=== PATIENT | male | born 1950 | race Caucasian/White ===

== ENCOUNTER 2019-02-06 22:08 | Emergency (ER) | payer OTHER ==
[2019-02-06 22:38] LABS: Absolute Lymphocytes (CBC) 0.9 K/uL (0.7-4.9); Absolute Monocytes 1.6 K/uL (0.1-1.3); Absolute Neutrophil 12.3 K/uL (1.8-8.0); Basophils % 0.4 % (0-1.3); Eosinophils % 0.4 % (0-4.4); Hematocrit 33.1 % (39.6-49.0); MPV 8.2 fL (7.6-11.3); Monocytes % 10.5 % (3.3-12.3); RBC Red Blood Cell Count 3.65 M/uL (4.33-5.43)
[2019-02-06 22:41] LABS: Protime INR 1.25
[2019-02-06] MEDS ORDERED: NA CHLORIDE 0.9% 1,000 ML ONE (22:50)
[2019-02-06 22:56] LABS: ALT/SGPT 25 U/L (12-78); AST/SGOT 18 U/L (15-37); Albumin 2.7 g/dL (3.4-5.0); Alkaline Phosphatase 95 U/L (45-117); BUN Blood Urea Nitrogen 23 mg/dL (7-18); Bicarbonate 26 mmol/L (21-32); Bilirubin Direct 0.2 mg/dL (0-0.2); Bilirubin Total 0.6 mg/dL (0.2-1.0); CKMB Creatine Kinase MB 1.3 ng/mL (0.3-3.6); Creatine Phosphokinase 67 U/L (39-308); Glucose Level 105 mg/dL (74-106); Lipase 41 U/L (73-393); Potassium 4.4 mmol/L (3.5-5.1); Protein, Total 6.7 g/dL (6.4-8.2); Sodium Level 138 mmol/L (136-145); Troponin (Emerg Dept Use Only) < 0.02 ng/mL (0.0-0.045)
[2019-02-06] MEDS ORDERED: ONDANSETRON 4 MG/2 ML VIAL ONE (23:03)
[2019-02-06] MEDS ORDERED: FENTANYL CITR 100 MCG/2 ML ONE ×2 (23:03→23:52)
--- NOTE | 2019-02-06 23:03 | EDPHYS ---
Physician Documentation [facility] Name: Boom Peguero Age: 68 yrs Sex: Male : 1950 Arrival Date: 02/06/2019 Time: 22:11 Bed 7 Private MD: ED Physician Varghese Reid HPI: 02/06 22:51 This 68 yrs old Male presents to ER via EMS with complaints of fever and back kristian pain, post op 9 days. 22:51 This 68 yrs old Male presents to ER via EMS with complaints of fever, low kristian back pain , drainage, post op 9 days. 22:51 The patient presents with pain that is acute. The symptoms are located in the low back. kristian Onset: The symptoms/episode began/occurred 3 day(s) ago. The pain does not radiate. Associated signs and symptoms: Pertinent positives: fever, weakness. The problem was sustained post op, 9 days, spine. Modifying factors: The patient symptoms are alleviated by remaining still, the patient symptoms are aggravated by any movement, coughing, lifting, movement, standing. Severity of symptoms: At their worst the symptoms were moderate, in the emergency department the symptoms are unchanged. The patient or guardian reports cough. Historical: - Allergies: 22:17 No Known Allergies; bb - Home Meds: 22:17 lisinopril 10 mg Oral tab [Active]; ranitidine HCl 150 mg Oral tab [Active]; bb promethazine 25 mg Oral tab [Active]; gabapentin 300 mg oral cap [Active]; simvastatin 20 mg Oral tab [Active]; [place] 10-325 mg Oral tab 1 tab every 4-6 hours [Active]; - PMHx: 22:17 Hyperlipidemia; Hypertension; bb - PSHx: 22:17 back surgery; neck surgery; bb - Immunization history:: Adult Immunizations up to date. - Social history:: Smoking status: Patient uses tobacco products, smokes one-half pack cigarettes per day, Patient/guardian denies using alcohol, street drugs. - Ebola Screening: : No symptoms or risks identified at this time. - Family history:: not pertinent. ROS: 22:51 Constitutional: Negative for fever, chills, and weight loss, Eyes: Negative for injury, kristian pain, redness, and discharge, ENT: Negative for injury, pain, and discharge, Neck: Negative for injury, pain, and swelling, : Negative for injury, bleeding, discharge, and swelling, MS/Extremity: Negative for injury and deformity, Skin: Negative for injury, rash, and discoloration, Neuro: Negative for headache, weakness, numbness, tingling, and seizure. 22:51 Cardiovascular: Positive for palpitations. 22:51 Respiratory: Positive for cough. 22:51 Abdomen/GI: Negative for abdominal pain. 22:51 Back: Positive for pain at rest, pain with movement, of the lumbar area. Exam: 22:51 Head/Face: Normocephalic, atraumatic. Eyes: Pupils equal round and reactive to light, kristian extra-ocular motions intact. Lids and lashes normal. Conjunctiva and sclera are non-icteric and not injected. Cornea within normal limits. Periorbital areas with no swelling, redness, or edema. ENT: Nares patent. No nasal discharge, no septal abnormalities noted. Tympanic membranes are normal and external auditory canals are clear. Oropharynx with no redness, swelling, or masses, exudates, or evidence of obstruction, uvula midline. Mucous membranes moist. Neck: Trachea midline, no thyromegaly or masses palpated, and no cervical lymphadenopathy. Supple, full range of motion without nuchal rigidity, or vertebral point tenderness. No Meningismus. Chest/axilla: Normal chest wall appearance and motion. Nontender with no deformity. No lesions are appreciated. Respiratory: Lungs have equal breath sounds bilaterally, clear to auscultation and percussion. No rales, rhonchi or wheezes noted. No increased work of breathing, no retractions or nasal flaring. Abdomen/GI: Soft, non-tender, with normal bowel sounds. No distension or tympany. No guarding or rebound. No evidence of tenderness throughout. Male : Normal genitalia with no discharge or lesions. MS/ Extremity: Pulses equal, no cyanosis. Neurovascular intact. Full, normal range of motion. Neuro: Awake and alert, GCS 15, oriented to person, place, time, and situation. Cranial nerves II-XII grossly intact. Motor strength 5/5 in all extremities. Sensory grossly intact. Cerebellar exam normal. Normal gait. Psych: Awake, alert, with orientation to person, place and time. Behavior, mood, and affect are within normal limits. 22:51 Cardiovascular: Rate: tachycardic, Rhythm: regular, Pulses: no pulse deficits are appreciated, Heart sounds: normal, Edema: is not appreciated, JVD: is not appreciated. Vital Signs: 22:17 BP 100 / 60; Pulse 107; Resp 16 S; Temp 101.4(O); Pulse Ox 97% on R/A; Weight 70.31 kg (R); Height 5 ft. 10 in. (177.80 cm) (R); Pain 8/10; 23:14 BP 113 / 78; Pulse 100; Resp 19; Pulse Ox 100% on R/A; ea 02/07 00:22 BP 99 / 63; Pulse 102; Resp 18; Temp 99.8; Pulse Ox 100% on R/A; ea 01:00 BP 100 / 78; Pulse 100; Resp 18; Pulse Ox 98% ; ea 02/06 22:17 Body Mass Index 22.24 (70.31 kg, 177.80 cm) MDM: 02/06 22:12 Patient medically screened. [facility] 22:51 Data reviewed: vital signs, nurses notes, EMS record, lab test result(s), EKG, [facility] radiologic studies, CT scan, plain films. 02/06 22:24 Order name: Basic Metabolic Panel; Complete Time: 00:00 [facility] 02/06 22:24 Order name: Blood Culture Adult (2) [facility] 02/06 22:24 Order name: CBC with Diff; Complete Time: 22:49 [facility] 02/06 22:24 Order name: Ckmb; Complete Time: 00:00 [facility] 02/06 22:24 Order name: CPK; Complete Time: 00:00 [facility] 02/06 22:24 Order name: Lactate; Complete Time: 00:00 [facility] 02/06 22:24 Order name: LFT's; Complete Time: 00:00 [facility] 02/06 22:24 Order name: Lipase; Complete Time: 00:00 [facility] 02/06 22:24 Order name: Procalcitonin; Complete Time: 00:00 [facility] 02/06 22:24 Order name: Protime (+inr); Complete Time: 22:49 [facility] 02/06 22:24 Order name: Ptt, Activated; Complete Time: 22:49 [facility] 02/06 22:24 Order name: Troponin (emerg Dept Use Only); Complete Time: 00:00 [facility] 02/06 22:24 Order name: Urine Microscopic Only; Complete Time: 00:40 ak 02/06 23:42 Order name: Urine Dipstick--Ancillary (enter results); Complete Time: 00:00 02/06 22:24 Order name: Chest Single View XRAY ak 02/06 22:24 Order name: Accucheck; Complete Time: 22:28 ak 02/06 22:24 Order name: Cardiac monitoring; Complete Time: 22:29 [facility] 02/06 22:24 Order name: EKG - Nurse/Tech; Complete Time: 22:37 [facility] 02/06 22:24 Order name: IV Saline Lock - Large Bore; Complete Time: 22:30 [facility] 02/06 22:24 Order name: Labs collected and sent; Complete Time: 22:30 [facility] 02/06 22:24 Order name: O2 Per Protocol; Complete Time: 22:30 [facility] 02/07 00:19 Order name: Urine Culture [facility] 02/06 22:24 Order name: O2 Sat Monitoring; Complete Time: 22:29 [facility] 02/06 22:24 Order name: Urine Dipstick-Ancillary (obtain specimen); Complete Time: 00:24 [facility] Administered Medications: 22:37 Drug: NS 0.9% (30 ml/kg) 30 ml/kg Route: IV; Rate: bolus; Site: left forearm; [facility] 22:39 Drug: NS 0.9% (30 ml/kg) 30 ml/kg Route: IV; Rate: bolus; Site: left forearm; [facility] 02/07 01:07 Follow up: Response: No adverse reaction; IV Status: Completed infusion; IV Intake: ea 2000ml 02/06 22:50 Drug: Zofran 4 mg Route: IVP; Site: left antecubital; ea 23:30 Follow up: Response: No adverse reaction; Marked relief of symptoms ea 22:55 Drug: fentaNYL (PF) 25 mcg Route: IVP; Site: left antecubital; ea 23:40 Follow up: Response: No adverse reaction; Pain is unchanged, physician notified ea 22:58 Drug: fentaNYL (PF) 25 mcg Route: IVP; Site: right antecubital; ea 23:40 Follow up: Response: No adverse reaction; Pain is unchanged, physician notified ea 23:06 Drug: Cefepime 2 grams Route: IVPB; Rate: 200 ml/hr; Infused Over: 30 mins; Site: left ea antecubital; 23:36 Follow up: Response: No adverse reaction; IV Status: Completed infusion; IV Intake: ea 100ml 23:15 Drug: Tylenol 650 mg Route: PO; ea 02/07 00:30 Follow up: Response: No adverse reaction; Temperature is decreased ea 02/06 23:49 Drug: fentaNYL (PF) 25 mcg Route: IVP; Site: left antecubital; ea 02/07 00:40 Follow up: Response: Pain is decreased ea 02/06 23:50 Drug: vancoMYCIN 1 grams Route: IVPB; Infused Over: 2 hrs; Site: right antecubital; ea 02/07 01:03 Follow up: Response: No adverse reaction; IV Status: Infusion continued upon admission ea Point of Care Testing: Blood Glucose: 02/06 22:30 Blood Glucose: 124 mg/dL; ak1 Ranges: Critical Glucose Levels:Adult <50 mg/dl or >400 mg/dl <40 mg/dl or >180 mg/dl Disposition: 02/06/19 23:03 Transfer ordered to Other Acute Care Facility. Diagnosis are Fever, unspecified, Low back pain - sp anterior posterior fusion, 9 days, Weakness. - Reason for transfer: Higher level of care. - Accepting physician is to dr nelson nava. - Condition is Fair. - Problem is new. - Symptoms have improved. Signatures: Dispatcher [employer] EDVarghese Mark MD MD cha Ballard, Brenda, RN RN bb Krenek, Amber, RN RN ak1 Antunez, Elena, RN RN ea Corrections: (The following items were deleted from the chart) 02/07 01:16 02/06 23:03 02/06/2019 23:03 Transfer ordered to Other Acute Care Facility. Diagnosis ea is Fever, unspecified; Low back pain - sp anterior posterior fusion, 9 days; Weakness. Reason for transfer: Higher level of care. Accepting physician is to dr nelson nava. Condition is Fair. Problem is new. Symptoms have improved. kristian
--- NOTE | 2019-02-06 23:03 | ER ---
Nurse's Notes [facility] Name: Boom Peguero Age: 68 yrs Sex: Male : 1950 Arrival Date: 02/06/2019 Time: 22:11 Bed 7 Private MD: Diagnosis: Fever, unspecified;Low back pain-sp anterior posterior fusion, 9 days;Weakness Presentation: 02/06 22:12 Presenting complaint: EMS states: they were toned out for report of pt with fever 8 bb days p/o major spine surgery. Transition of care: patient was not received from another setting of care. Onset of symptoms was February 06, 2019. Risk Assessment: Do you want to hurt yourself or someone else? Patient reports no desire to harm self or others. Initial Sepsis Screen: Does the patient meet any 2 criteria? Temp <36.0*C (96.8*F)) or > 38.3*C (100.9*F). HR > 90 bpm. Yes Does the patient have a suspected source of infection? Yes: Skin breakdown/wound Bone or joint infection If YES to both, name of provider notified: Varghese Reid MD. Care prior to arrival: Medication(s) given: Normal saline infusion, IV initiated. 20 GA, in the left antecubital area. 22:12 Method Of Arrival: EMS: [facility] 22:12 Acuity: SIRISHA 2 bb Triage Assessment: 22:32 General: Appears ill, slender, unkempt, Behavior is cooperative, drowsy. ak1 Historical: - Allergies: 22:17 No Known Allergies; bb - Home Meds: 22:17 lisinopril 10 mg Oral tab [Active]; ranitidine HCl 150 mg Oral tab [Active]; bb promethazine 25 mg Oral tab [Active]; gabapentin 300 mg oral cap [Active]; simvastatin 20 mg Oral tab [Active]; [place] 10-325 mg Oral tab 1 tab every 4-6 hours [Active]; - PMHx: 22:17 Hyperlipidemia; Hypertension; bb - PSHx: 22:17 back surgery; neck surgery; bb - Immunization history:: Adult Immunizations up to date. - Social history:: Smoking status: Patient uses tobacco products, smokes one-half pack cigarettes per day, Patient/guardian denies using alcohol, street drugs. - Ebola Screening: : No symptoms or risks identified at this time. - Family history:: not pertinent. Screenin:32 Abuse screen: Denies threats or abuse. Denies injuries from another. Nutritional ak1 screening: No deficits noted. Tuberculosis screening: No symptoms or risk factors identified. Fall Risk IV access (20 points). Ambulatory Aid- Crutches/Cane/Walker (15 pts). Gait- Weak (10 pts.). Assessment: 22:30 Reassessment: pt at bedside stated pt received 2 units of blood prior to sx and 2 ak1 units of blood after sx. pt pale and drowsy. Dr. Reid notified of amount of units of blood pt received. will continue to monitor. . 22:30 General: Appears uncomfortable, Behavior is calm, cooperative, appropriate for age. ea Pain: Complains of pain in lumbar area. Neuro: Level of Consciousness is awake, alert, obeys commands, Oriented to person, place, time, situation. Cardiovascular: Patient's skin is warm and dry. Respiratory: Airway is patent Respiratory effort is even, unlabored, Respiratory pattern is regular, symmetrical. GI: Reports constipation. : No signs and/or symptoms were reported regarding the genitourinary system. Derm: Skin is dry, Skin is pale, Skin temperature is warm Wound noted lumbar area and suprapubic area Wound is Surgical incision, serosanguineous drainage noted to bandages. Musculoskeletal: Reports pain in lumbar area. 22:49 Reassessment: Reassessment: Pt complaining of pain, provider notified, medication order ea obtained, medication administered, pt tolerated well. 23:30 Reassessment: Patient and/or family updated on plan of care and expected duration. Pain ea level reassessed. Patient is alert, oriented x 3, equal unlabored respirations, skin warm/dry/pink. 18 00:30 Reassessment: Patient and/or family updated on plan of care and expected duration. Pain ea level reassessed. Patient is alert, oriented x 3, equal unlabored respirations, skin warm/dry/pink. 00:32 Reassessment: Report called to Fan ARMIJO at [facility] and spine. ea 01:00 Reassessment: Patient and/or family updated on plan of care and expected duration. Pain ea level reassessed. Patient is alert, oriented x 3, equal unlabored respirations, skin warm/dry/pink. [facility] at facility for transfer, report given EMS. Pt left via stretcher per EMS, pt tolerating well. Vital Signs: 02/06 22:17 BP 100 / 60; Pulse 107; Resp 16 S; Temp 101.4(O); Pulse Ox 97% on R/A; Weight 70.31 kg bb (R); Height 5 ft. 10 in. (177.80 cm) (R); Pain 8/10; 23:14 BP 113 / 78; Pulse 100; Resp 19; Pulse Ox 100% on R/A; ea 02/07 00:22 BP 99 / 63; Pulse 102; Resp 18; Temp 99.8; Pulse Ox 100% on R/A; ea 01:00 BP 100 / 78; Pulse 100; Resp 18; Pulse Ox 98% ; ea 02/06 22:17 Body Mass Index 22.24 (70.31 kg, 177.80 cm) bb ED Course: 02/06 22:11 Patient arrived in ED. ds1 22:12 Varghese Reid MD is Attending Physician. kristian 22:14 Triage completed. bb 22:17 Arm band placed on Patient placed in an exam room, on a stretcher, on cardiac cath lab radiology technologist, bb on pulse oximetry. Family accompanied patient. 22:25 Mamta Chisholm, ZOFIA is Primary Nurse. ea 22:31 Patient has correct armband on for positive identification. Bed in low position. Side ak1 rails up X2. Adult w/ patient. court monitor on. Pulse ox on. NIBP on. 22:37 Maintain EMS IV. Dressing intact. Good blood return noted. Site clean \T\ dry. Gauge \T\ ak 1 site: 20g right forearm. 02/07 00:11 X-ray completed. Portable x-ray completed in exam room. Patient tolerated procedure kw poorly. 00:18 Chest Single View XRAY In Process Unspecified. EDMS 01:07 No provider procedures requiring assistance completed. Patient transferred, IV remains ea in place. Administered Medications: 02/06 22:37 Drug: NS 0.9% (30 ml/kg) 30 ml/kg Route: IV; Rate: bolus; Site: left forearm; ak1 22:39 Drug: NS 0.9% (30 ml/kg) 30 ml/kg Route: IV; Rate: bolus; Site: left forearm; ak1 02/07 01:07 Follow up: Response: No adverse reaction; IV Status: Completed infusion; IV Intake: ea 2000ml 02/06 22:50 Drug: Zofran 4 mg Route: IVP; Site: left antecubital; ea 23:30 Follow up: Response: No adverse reaction; Marked relief of symptoms ea 22:55 Drug: fentaNYL (PF) 25 mcg Route: IVP; Site: left antecubital; ea 23:40 Follow up: Response: No adverse reaction; Pain is unchanged, physician notified ea 22:58 Drug: fentaNYL (PF) 25 mcg Route: IVP; Site: right antecubital; ea 23:40 Follow up: Response: No adverse reaction; Pain is unchanged, physician notified ea 23:06 Drug: Cefepime 2 grams Route: IVPB; Rate: 200 ml/hr; Infused Over: 30 mins; Site: left ea antecubital; 23:36 Follow up: Response: No adverse reaction; IV Status: Completed infusion; IV Intake: ea 100ml 23:15 Drug: Tylenol 650 mg Route: PO; ea 02/07 00:30 Follow up: Response: No adverse reaction; Temperature is decreased ea 02/06 23:49 Drug: fentaNYL (PF) 25 mcg Route: IVP; Site: left antecubital; ea 02/07 00:40 Follow up: Response: Pain is decreased ea 02/06 23:50 Drug: vancoMYCIN 1 grams Route: IVPB; Infused Over: 2 hrs; Site: right antecubital; ea 02/07 01:03 Follow up: Response: No adverse reaction; IV Status: Infusion continued upon admission ea Point of Care Testing: Blood Glucose: 02/06 22:30 Blood Glucose: 124 mg/dL; ak1 Ranges: Intake: 23:36 IV: 100ml; Total: 100ml. ea 02/07 01:07 IV: 2000ml; Total: 2100ml. ea Outcome: 02/06 23:03 ER care complete, transfer ordered by . kristian 23:30 Transferred by ground EMS to other acute care facility: [facility] with ea Spine . Transfer form completed. 23:30 Condition: stable 23:30 Instructed on the need for transfer. 02/07 01:16 Patient left the ED. ea Signatures: Dispatcher [employer] EDVarghese Mark MD MD kristian Ferguson, Paula ds1 Wendy Correa RN RN Arielle López Amber RN RN ak1 Mamta Chisholm RN RN ea Corrections: (The following items were deleted from the chart) 01:17 01:12 Reassessment: Patient and/or family updated on plan of care and expected ea duration. Pain level reassessed. Patient is alert, oriented x 3, equal unlabored respirations, skin warm/dry/pink. [facility] at facility for transfer, report given EMS. Pt left via stretcher per EMS, pt tolerating well. ea
[2019-02-06] MEDS ORDERED: CEFEPIME 2 GM VIAL ONE (23:13)
[2019-02-06] MEDS ORDERED: VANCOMYCIN 1 GM/VIAL ONE (23:13)
[2019-02-06] MEDS ORDERED: NA CHLORIDE 0.9% 250 ML ONE (23:13)
[2019-02-06] MEDS ORDERED: ACETAMINOPHEN 325 MG TABLET ONE (23:13)
[2019-02-06 23:51] LABS: Urine Blood TRACE (NEG); Urine Glucose NEGATIVE (NEG); Urine Protein 1+ (NEG); Urine pH 5.5 (5.0-7.0)
[2019-02-07 00:09] LABS: Urine Bacteria <20 /HPF (NONE SEEN); Urine Culture Reflex Order REFLEXED; Urine RBC <5 /HPF (NONE SEEN)
--- NOTE | 2019-02-07 07:07 | RAD REPORT ---
EXAM DESCRIPTION: RAD - Chest Single View - 02/07/2019 12:14 am CLINICAL HISTORY: Fever, recent spinal surgery COMPARISON: None. TECHNIQUE: AP portable chest image was obtained 2331 hours . FINDINGS: No focal infiltrate or pulmonary edema pattern. No failure or volume overload seen. Baseli ne for the patient is unknown. Minimal prominence of the perihilar lung markings noted. Heart and vasculature are normal. No measurable pleural effusion and no pneumothorax. No acute bony abnormality seen. No acute aortic finding. Extensive surgical hardware is seen in the cervical spine. Soft tissue density over the lateral left chest is likely overlying arm soft tissue. This is not ful ly assessed on this study. IMPRESSION: No pulmonary edema or focal infiltrate seen. Baseline examination shows mild prominence of the perihilar markings. A minimal viral infiltrate kaley ot be excluded. Soft tissue density overlying the lateral left chest presumed to be left upper extremity soft tissue artifact. This area is not fully imaged on this study.
--- NOTE | 2019-02-07 09:02 | EKG ---
Test Date: 2019-02-06 Test Time: 22:32:28 Field Secretary: HELDER MEASUREMENT RESULTS: Intervals: Rate: 98 ME: 182 QRSD: 122 QT: 362 QTc: 462 [place]: P: 56 ME: 182 QRS: -30 T: 50 INTERPRETIVE STATEMENTS: Normal sinus rhythm Left axis deviation Right bundle branch block Abnormal ECG No previous ECG available for comparison Electronically Signed On 02-07-19 09:01:27 CDT by Santosh Massey
== END 2019-02-07 01:16 ==
LOC: ER 22:08
DX: M54.5 Low back pain (principal); Z98.890 Other specified postprocedural states; R53.1 Weakness; I10 Essential (primary) hypertension; E78.5 Hyperlipidemia, unspecified; F17.210 Nicotine dependence, cigarettes, uncomplicated
CPT/HCPCS: 36415; 71045; 80048; 80076; 81003; 81015; 82550; 82553; 82962; 83605; 83690; 84145; 84484; 85025; 85610; 85730; 87040; 87086; 87088; 93005; 99285; J0692; J2405; J3010; J7030

== ENCOUNTER 2022-10-22 12:51 | Emergency (ER) | payer BC, OTHER ==
--- OUTSIDE RECORDS SUMMARY | 2022-10-22 13:01 | XMS REPORT | Continuity of Care Document ---
:1950 Author Organization Formerly [facility] t Address [address] [place] [address] Care Team Providers Name Role Phone James Galvan MD Primary Care Physician James Galvan MD Attending Clinician MALENA HENDRIX Attending Clinician Unavailable Malena Hendrix MD Attending Clinician Storm CAMPA Attending Clinician Unavailable Storm Peng Attending Clinician JAMES GALVAN Attending Clinician Unavailable Marilee Arriaga Attending Clinician Lab, Ang - Db Attending Clinician Unavailable MARILEE HOUGH Attending Clinician Unavailable Doctor Unassigned, [place] Attending Clinician Unavailable Radiology Attending Clinician Unavailable RADIOLOGY Attending Clinician Unavailable Hailey Treviño Attending Clinician Natan Atkinson Attending Clinician David Barker Attending Clinician David Contreras Attending Clinician Malena Hendrix MD Admitting Clinician MALENA HENDRIX Admitting Clinician Unavailable ZACK COE II Admitting Clinician Unavailable Natan Atkinson Admitting Clinician David Contreras Admitting Clinician Payers Payer Name Policy Type Policy Number Effective Date Expiration Date S ource Problems Condition Condition Condition Status Onset Resolution Last Treating Co mments Source Name Details Category Date Date Treatment Clinician Date Open wound Open wound Disease Active U nivers of toe, of toe, 4-29 ity of initial initial 00:00: [place] encounter encounter 00 [facility] rahul Branch Thickened Thickened Disease Active Uni vers nails nails 4-29 ity of 00:00: [place] [facility] Z98.1 - Z98.1 - Diagnosis Active 2018-08-24 Memoria ARTHRODESI ARTHRODESI 04-09 18:10:00 l S STATUS S STATUS 00:01: Lalit diamond Active 00 04/09/2018 ALYSSA Sylvester CCL LHC CCL LHC Diagnosis Active 2018-01-24 Memoria Active 01-03 14:36:00 l 01/03/2018 00:00: Lalit diamond [address] HTN HTN Diagnosis Active 2017-12-29 Mem oria Active 12-25 11:01:00 l 12/25/2017 00:00: Lalit diamond [address] CERVICAL CERVICAL Diagnosis Active 2018-01-25 Memoria STENOSIS STENOSIS 2-22 21:55:00 l WITH WITH 00:00: Higinio MYELOPATHY MYELOPATHY 00 Active 12/14/2017 [facility] CERVICAL CERVICAL Diagnosis Active 2017-11-29 Memoria MYELOPATHY MYELOPATHY 2-06 15:09:00 l DEGENERATI DEGENERATI 10:00: Saman blackburn VE SCOLIOS VE SCOLIOS 00 Active 11/28/2017 [facility] CC FOR CC FOR Diagnosis Active 2017-12-27 [facility] NEURO NEURO 10-23 16:14:00 l SURGERY SURGERY 00:00: Higinio Active 00 10/23/2017 [facility] Diabetes Diabetes Problem Active 2019-05-23 Memoria mellitus mellitus 12:22:34 l (disorder) (disorder) Saman blackburn Active Problem 05/23/2019 [facility] ALYSSA Sylvester Abnormal Abnormal Problem Active 2019-05-23 Memoria ECG ECG 12:22:34 l (finding) (finding) Perlita medina Active Problem 05/23/2019 [facility] OPID [place]inio Hyperlipid Hyperlipi Problem Active 2019-05-23 Memoria emia demia 12:22:34 l (disorder) (disorder) He rmann Active Problem 05/23/2019 [facility] Neuro,[facility], ALYSSA Sylvester Hypertensi Hypertens Problem Active 2019-05-23 Memoria ve maite 12:22:34 l disorder, disorder, Herm carol systemic systemic arterial arterial (disorder) (disorder) Active Problem 05/23/2019 [facility] Neuro,[facility], ALYSSA Sylvester Scoliosis, Scoliosis Problem 2018-03-06 Memoria unspecifie , 16:42:01 l d unspecifie Lalit n d 03/06/2018 [facility] Spondyloli Spondylol Problem 2018-03-06 Memoria sthesis, isthesis, 16:42:01 l cervical cervical Lalit n region region 03/06/2018 [facility] Other Other Problem 2018-03-06 Memor ia cervical cervical 16:42:01 l disc disc Higinio degenerati degenerati on, on, occipito-a occipito-a tlanto-axi tlanto-axi al region al region 03/06/2018 [facility] 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 s without is without 16:42:01 l myelopathy myelopathy He rmann or or radiculopa radiculopa thy, thy, cervical cervical region region 03/06/2018 [facility] Spondyloli Spondylol Problem 2018-03-06 Memoria sthesis, isthesis, 16:42:01 l lumbar lumbar [place] region region 03/06/2018 [facility] 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 s without is without 16:42:01 l myelopathy myelopathy He rmann or or radiculopa radiculopa thy, thy, lumbar lumbar region region 03/06/2018 [facility] Other Other Problem 2018-03-06 Memor ia interverte interverte 16:42:01 l bral disc bral disc Herm carol degenerati degenerati on, lumbar on, lumbar region region 03/06/2018 [facility] Prediabete Problem 2018-03-30 M emoria s Prediabete 13:43:10 l s Higinio 03/30/2018 [facility] Hyperlipid Hyperlipi Problem 2018-04-23 Memoria emia, demia, 12:03:08 l unspecifie unspecifie He rmann d d 04/23/2018 [facility] Nicotine Nicotine Problem 2018-04-23 Memoria dependence dependence 12:03:08 l , , Higinio cigarettes cigarettes , , uncomplica uncomplica lui lui 04/23/2018 [facility] Personal Personal Problem 2018-03-30 Memoria history of history of 13:43:10 l other other [place] diseases diseases of the of the musculoske musculoske letal letal system and system and connective connective tissue tissue 03/30/2018 [facility] Type 2 Type 2 Problem 2018-04-23 Addy liliana diabetes diabetes 12:03:08 l mellitus mellitus Lalit n without without complicati complicati ons ons 04/23/2018 [facility] Other long Other Problem 2018-04-23 M emoria term chcf 12:03:08 l (current) (current) Herm carol drug drug therapy therapy 04/23/2018 [facility] Constipati Constipat Problem 2018-04-28 Memoria on, ion, 11:12:13 l unspecifie unspecifie He rmann d d 04/28/2018 [facility] Spinal Spinal Problem 2018-04-28 Addy liliana stenosis, stenosis, 11:12:13 l cervical cervical Lalit n region region 04/28/2018 [facility] OPID [place] Other Other Problem 2018-04-28 Memor ia spondylosi spondylosi 11:12:13 l s with s with Higinio radiculopa radiculopa thy, thy, cervical cervical region region 04/28/2018 [facility] Unspecifie Unspecifi Problem 2018-04-28 Memoria d ed 11:12:13 l kyphosis, kyphosis, Herm carol cervical cervical region region 04/28/2018 [facility] Osteophyte Osteophyt Problem 2018-04-28 gem [place], 11:12:13 l vertebrae vertebrae Herm carol 04/28/2018 [facility] Coma Coma Problem 2018-04-28 Memor ia scale, scale, 11:12:13 l best motor best motor He alexey response, response, obeys obeys commands, commands, at at hospital hospital admission admission 04/28/2018 [facility] Coma Coma Problem 2018-04-28 Memor ia scale, scale, 11:12:13 l eyes open, eyes open, Saman blackburn spontaneou spontaneou s, at s, at hospital hospital admission admission 04/28/2018 [facility] Coma Coma Problem 2018-04-28 Memor ia scale, scale, 11:12:13 l best best [place] verbal verbal response, response, oriented, oriented, at at hospital hospital admission admission 04/28/2018 [facility] Pain in Pain in Problem Resolve 2019-05-23 M pablitorisherri lower limb lower limb d 12:22:34 l (finding) (finding) Perlita carol Resolved Problem 05/23/2019 [facility], ALYSSA Sylvester Diabetes Diabetes Problem Resolve 2019-05-23 2019-05-23 Memoria mellitus mellitus d 01-15 12:22:34 12:22:34 l type 2 type 2 00:00: Higinio (disorder) (disorder) 00 Resolved 01/15/2018 Problem 05/23/2019 [facility], ALYSSA Sylvester History of Past Illness Condition Condition Condition Status Onset Resolution Last Treating Co mments Source Name Details Category Date Date Treatment Clinician Date Essential Essential Problem 2018-11-22 2018-11-22 Memoria (primary) (primary) 3-15 13:39:31 13:39:31 l hypertensi hypertensi 03:15: Saman blackburn on on 49 01/04/2018 11/22/2018 [facility] Other Other Problem 2018-04-28 2018-04-28 Murtaza kenneyria spondylosi spondylosi 4-06 11:12:13 11:12:13 l s with s with 03:11: Higinio myelopathy myelopathy 55 , cervical , cervical region region 01/26/2018 8 [facility], ALYSSA Sylvester 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 without angina angina pectoris pectoris 02/02/2018 04/23/2018 [facility] Disease of Disease Problem 2018-0 2018-04-06 2018[facility]04[facility] spinal 3-14 12:09:47 12:09:47 l cord, cord, 04:27: Higinio unspecifie unspecifie 04 d d 01/03/2018 04/06/2018 [facility], ALYSSA Sylvester Allergies, Adverse Reactions, Alerts Allergy Allergy Status Severity Reaction(s) Onset Inactive Treating Comm ents Source Name Type Date Date Clinician NO KNOWN Drug Active Univers ALLERGIE Class ity of S [facility] Social History Social Habit Start Date Stop Date Quantity Comments Source History of tobacco Cigarette Smoker University of use [facility] Exposure to 2022-07-30 2022-08-09 Not sure [facility] SARS-CoV-2 (event) 00:00:00 13:10:00 [facility] Alcohol intake 2022-08-09 2022-08-09 Current University of 00:00:00 00:00:00 non-drinker of [facility] alcohol Branch (finding) Cigarettes smoked 2018-11-29 2018-11-29 Univers ity of current (pack per 00:00:00 00:00:00 [facility] ) - Reported Branch Cigarette 2018-11-29 2018-11-29 University of pack-years 00:00:00 00:00:00 [facility] Tobacco Comment 2018-11-29 2018-11-29 less than 1/2 Univer sity of 00:00:00 00:00:00 pack per day [facility] [place] Tobacco use and 2018-11-29 2018-11-29 Smokeless Universit y of exposure 00:00:00 00:00:00 tobacco non-user [facility] [place] Sex Assigned [birth year] Universit y of 00:00:00 00:00:00 [facility] Smoking Status Start Date Stop Date Source Social History 2018-09-20 16:13:13 [facility] Medications Ordered Filled Start Stop Current Ordering Indication Dosage Frequency Signature Comments Components Source Medication Medication Date Date Medication? Clinician (SIG) Name Name oxybutynin 2021-10 Yes [id number] 5mg Take 1 Univers chloride 5 1-30 tablet by [place] mg [place] morning [place] and 1 tablet in the evening. oxybutynin 2021-10 Yes [id number] 5mg Take 1 Univers chloride 5 1-30 tablet by ity of mg tablet 00:00[place] the [place] morning [place] and 1 tablet in the evening. oxybutynin 2021-10 Yes [id number] 5mg Take 1 Univers chloride 5 1-30 tablet by ity of mg tablet 00:00[place] the [place] morning [place] and 1 tablet in the evening. PROMETHAZIN 2021-10 Yes [id number] TAKE 1 Univers E 25 mg 1-22 TABLET BY ity of tablet 00:00: MOUTH [place] 00 EVERY 4 Medical HOURS Branch NEEDED FOR NAUSEA OR VOMITING PROMETHAZIN 2021-10 Yes [id number] TAKE 1 Univers E 25 mg 1-22 TABLET BY ity of tablet 00:00: MOUTH [place] 00 EVERY 4 Medical HOURS Branch NEEDED FOR NAUSEA OR VOMITING PROMETHAZIN 2021-10 Yes [id number] TAKE 1 Univers E 25 mg 1-22 TABLET BY ity of tablet 00:00: MOUTH [place] 00 EVERY 4 Medical HOURS Branch NEEDED FOR NAUSEA OR VOMITING PROMETHAZIN 2021-10 Yes [id number] TAKE 1 Univers E 25 mg 1-22 TABLET BY ity of tablet 00:00: MOUTH [place] 00 EVERY 4 Medical HOURS Branch NEEDED FOR NAUSEA OR VOMITING ceFAZolin 2021-10- No 1000mg 1,000 mg, Univers (ANCEF) 0-18 10-18 Slow IV ity of injection 16:30: 16:24 Push, [place] 1,000 mg 00 :00 ONCE, 1 Medical dose, On Branch Mon08/09/22 at 1130, STAT
Re ason for Anti-Infec tive: Documented Infection< br>Documen lui Infection Site: Skin / Soft Tissue
Duration of Therapy: Other (see Comments) doxycycline 2021-10 Yes 100mg Take 100 U nivers monohydrate 0-18 mg by ity of 100 mg 16:12: mouth 2 [place] tablet 32 (two) Medical times Branch daily. doxycycline 2021-10 Yes 100mg Take 100 U nivers monohydrate 0-18 mg by ity of 100 mg 16:12: mouth 2 [place] tablet 32 (two) Medical times Branch daily. doxycycline 2021-10 Yes 100mg Take 100 U nivers monohydrate 0-18 mg by ity of 100 mg 16:12: mouth 2 [place] tablet 32 (two) Medical times Branch daily. doxycycline 2021- Yes 100mg Take 100 U nivers monohydrate 0-18 mg by ity of 100 mg 16:12: mouth 2 [place] tablet 32 (two) Medical times Branch daily. doxycycline 2021-1 Yes 100mg Take 100 U nivers monohydrate 0-18 mg by ity of 100 mg 16:12: mouth 2 [place] tablet 32 (two) Medical times Branch daily. doxycycline 2021- Yes 100mg Take 100 U nivers monohydrate 0-18 mg by ity of 100 mg 16:12: mouth 2 [place] tablet 32 (two) Medical times Branch daily. doxycycline 2021-10 Yes 100mg Take 100 U nivers monohydrate 0-18 mg by ity of 100 mg 16:12: mouth 2 [place] tablet 32 (two) Medical times Branch daily. doxycycline 2021-10 Yes 100mg Take 100 U nivers monohydrate 0-18 mg by ity of 100 mg 16:12: mouth 2 [place] tablet 32 (two) Medical times Branch daily. clindamycin 2021-10 Yes [id number] 600mg Take 2 Univers 300 mg 0-18 capsules ity of capsule 00:00: by mouth [place] 00 in the Medical morning Branch and 2 capsules at noon and 2 capsules in the evening. clindamycin 2021-10 Yes [id number] 600mg Take 2 Univers 300 mg 0-18 capsules ity of capsule 00:00: by mouth [place] 00 in the Medical morning Branch and 2 capsules at noon and 2 capsules in the evening. clindamycin 2021-10 Yes [id number] 600mg Take 2 Univers 300 mg 0-18 capsules ity of capsule 00:00: by mouth [place] 00 in the Medical morning Branch and 2 capsules at noon and 2 capsules in the evening. clindamycin 2021-10 Yes [id number] 600mg Take 2 Univers 300 mg 0-18 capsules ity of capsule 00:00: by mouth [place] 00 in the Medical morning Branch and 2 capsules at noon and 2 capsules in the evening. clindamycin 1 Yes [id number] 600mg Take 2 Univers 300 mg 0-18 capsules ity of capsule 00:00: by mouth [place] 00 in the Medical morning Branch and 2 capsules at noon and 2 capsules in the evening. clindamycin 2021-10 Yes [id number] 600mg Take 2 Univers 300 mg 0-18 capsules ity of capsule 00:00: by mouth [place] 00 in the Medical morning Branch and 2 capsules at noon and 2 capsules in the evening. clindamycin 1 Yes [id number] 600mg Take 2 Univers 300 mg 0-18 capsules ity of capsule 00:00: by mouth [place] 00 in the Medical morning Branch and 2 capsules at noon and 2 capsules in the evening. clindamycin 1 Yes [id number] 600mg Take 2 Univers 300 mg 0-18 capsules ity of capsule 00:00: by mouth [place] 00 in the Medical morning Branch and 2 capsules at noon and 2 capsules in the evening. proMETHazin Yes [id number] 25mg Take 1 Univers e 25 mg 9-12 tablet by ity of tablet 00:00: mouth [place] 00 every 4 Medical (four) Branch hours as needed for Nausea and Vomiting (N/V). proMETHazin Yes [id number] 25mg Take 1 Univers e 25 mg 9-12 tablet by ity of tablet 00:00: mouth [place] 00 every 4 Medical (four) Branch hours as needed for Nausea and Vomiting (N/V). proMETHazin Yes [id number] 25mg Take 1 Univers e 25 mg 9-12 tablet by ity of tablet 00:00: mouth [place] 00 every 4 Medical (four) Branch hours as needed for Nausea and Vomiting (N/V). proMETHazin Yes [id number] 25mg Take 1 Univers e 25 mg 9-12 tablet by ity of tablet 00:00: mouth [place] 00 every 4 Medical (four) Branch hours as needed for Nausea and Vomiting (N/V). proMETHazin Yes [id number] 25mg Take 1 Univers e 25 mg 9-12 tablet by ity of tablet 00:00: mouth [place] 00 every 4 Medical (four) Branch hours as needed for Nausea and Vomiting (N/V). proMETHazin 0 Yes [id number] 25mg Take 1 Univers e 25 mg 9-12 tablet by ity of tablet 00:00: mouth [place] 00 every 4 Medical (four) Branch hours as needed for Nausea and Vomiting (N/V). proMETHazin 2021- No [id number] 25mg Take 1 Univers e 25 mg 9-12 11-22 tablet by ity of tablet 00:00: 00:00 mouth [place] 00 :00 every 4 Medical (four) Branch hours as needed for Nausea and Vomiting (N/V). proMETHazin 0 Yes [id number] 25mg Take 1 Univers e 25 mg 8-05 tablet by ity of tablet 00:00: mouth [place] 00 every 4 Medical (four) Branch hours as needed for Nausea and Vomiting (N/V). proMETHazin 2021- No [id number] 25mg Take 1 Univers e 25 mg 8-05 09-12 tablet by ity of tablet 00:00: 00:00 mouth [place] 00 :00 every 4 Medical (four) Branch hours as needed for Nausea and Vomiting (N/V). PROMETHAZIN Yes [id number] TAKE 1 Univers E 25 mg 8-02 TABLET BY ity of tablet 00:00: MOUTH [place] 00 EVERY 4 Medical HOURS Branch NEEDED FOR NAUSEA OR VOMITING PROMETHAZIN 0 Yes [id number] TAKE 1 Univers E 25 mg 8-02 TABLET BY ity of tablet 00:00: MOUTH [place] 00 EVERY 4 Medical HOURS Branch NEEDED FOR NAUSEA OR VOMITING PROMETHAZIN 0 2021- No [id number] TAKE 1 Univers E 25 mg 8-02 08-05 TABLET BY ity of tablet 00:00: 00:00 MOUTH [place] 00 :00 EVERY 4 Medical HOURS Branch NEEDED FOR NAUSEA OR VOMITING proMETHazin 0 Yes [id number] TAKE 1 Univers e 25 mg 6-28 TABLET BY ity of tablet 00:00: MOUTH [place] 00 EVERY 4 Medical HOURS Branch NEEDED FOR NAUSEA OR VOMITING proMETHazin 2021-0 2021- No [id number] TAKE 1 Univers e 25 mg 6-28 08-02 TABLET BY ity of tablet 00:00: 00:00 MOUTH [place] 00 :00 EVERY 4 Medical HOURS Branch NEEDED FOR NAUSEA OR VOMITING PROMETHAZIN 2021-0 Yes [id number] TAKE 1 Univers E 25 mg 5-26 TABLET BY ity of tablet 00:00: MOUTH [place] 00 EVERY 4 Medical HOURS Branch NEEDED FOR NAUSEA OR VOMITING PROMETHAZIN 0 2021- No [id number] TAKE 1 Univers E 25 mg 5-26 06-28 TABLET BY ity of tablet 00:00: 00:00 MOUTH [place] 00 :00 EVERY 4 Medical HOURS Branch NEEDED FOR NAUSEA OR VOMITING doxycycline 2022-0 Yes 100mg Take 100 U nivers monohydrate 4-29 mg by ity of 100 mg 12:59: mouth 2 [place] tablet 14 (two) Medical times Branch daily. doxycycline 2022-0 Yes 100mg Take 100 U nivers monohydrate 4-29 mg by ity of 100 mg 12:59: mouth 2 [place] tablet 14 (two) Medical times Branch daily. doxycycline 2022-0 Yes 100mg Take 100 U nivers monohydrate 4-29 mg by ity of 100 mg 12:59: mouth 2 [place] tablet 14 (two) Medical times Branch daily. doxycycline 2022-0 Yes 100mg Take 100 U nivers monohydrate 4-29 mg by ity of 100 mg 12:59: mouth 2 [place] tablet 14 (two) Medical times Branch daily. doxycycline 2022-0 Yes 100mg Take 100 U nivers monohydrate 4-29 mg by ity of 100 mg 12:59: mouth 2 [place] tablet 14 (two) Medical times Branch daily. doxycycline 2022-0 Yes 100mg Take 100 U nivers monohydrate 4-29 mg by ity of 100 mg 12:59: mouth 2 [place] tablet 14 (two) Medical times Branch daily. doxycycline 2022-0 Yes 100mg Take 100 U nivers monohydrate 4-29 mg by ity of 100 mg 12:59: mouth 2 [place] tablet 14 (two) Medical times Branch daily. doxycycline 2022-0 Yes 100mg Take 100 U nivers monohydrate 4-29 mg by ity of 100 mg 12:59: mouth 2 [place] tablet 14 (two) Medical times Branch daily. doxycycline 2022-0 Yes 100mg Take 100 U nivers monohydrate 4-29 mg by ity of 100 mg 12:59: mouth 2 [place] tablet 14 (two) Medical times Branch daily. doxycycline 2022-0 Yes 100mg Take 100 U nivers monohydrate 4-29 mg by ity of 100 mg 12:59: mouth 2 [place] tablet 14 (two) Medical times Branch daily. doxycycline 2022-0 Yes 100mg Take 100 U nivers monohydrate 4-29 mg by ity of 100 mg 12:59: mouth 2 [place] tablet 14 (two) Medical times Branch daily. mupirocin 2 2021-0 2021- No [id number] Apply to Univers % ointment 02-18 area(s) 3 ity of 00:00: 04:59 (three) [place] 00 :00 times Medical daily for Branch 14 days. mupirocin 2 2021- No [id number] Apply to Univers % ointment 02-18 area(s) 3 ity of 00:00: 04:59 (three) [place] 00 :00 times Medical daily for Branch 14 days. mupirocin 2 2021- No [id number] Apply to Univers % ointment 02-18 area(s) 3 ity of 00:00: 04:59 (three) [place] 00 :00 times Medical daily for Branch 14 days. mupirocin 2 2021- No [id number] Apply to Univers % ointment 02-18 area(s) 3 ity of 00:00: 04:59 (three) [place] 00 :00 times Medical daily for Branch 14 days. PROMETHAZIN 0 Yes [id number] TAKE 1 Univers E 25 mg 4-14 TABLET BY ity of tablet 00:00: MOUTH [place] 00 EVERY 4 Medical HOURS Branch NEEDED FOR NAUSEA OR VOMITING PROMETHAZIN 2021-0 Yes [id number] TAKE 1 Univers E 25 mg 4-14 TABLET BY ity of tablet 00:00: MOUTH [place] 00 EVERY 4 Medical HOURS Branch NEEDED FOR NAUSEA OR VOMITING PROMETHAZIN 2021-0 Yes [id number] TAKE 1 Univers E 25 mg 4-14 TABLET BY ity of tablet 00:00: MOUTH [place] 00 EVERY 4 Medical HOURS Branch NEEDED FOR NAUSEA OR VOMITING PROMETHAZIN 2021-0 Yes [id number] TAKE 1 Univers E 25 mg 4-14 TABLET BY ity of tablet 00:00: MOUTH [place] 00 EVERY 4 Medical HOURS Branch NEEDED FOR NAUSEA OR VOMITING PROMETHAZIN 2021-0 2021- No [id number] TAKE 1 Univers E 25 mg 4-14 05-26 TABLET BY ity of tablet 00:00: 00:00 MOUTH [place] 00 :00 EVERY 4 Medical HOURS Branch NEEDED FOR NAUSEA OR VOMITING OXYBUTYNIN 2020- Yes [id number] TAKE 1 Univers CHLORIDE 5 1-02 TABLET BY ity of mg tablet 00:00: MOUTH [place] 00 TWICE Medical DAILY Branch OXYBUTYNIN 2020-10 Yes [id number] TAKE 1 Univers CHLORIDE 5 1-02 TABLET BY ity of mg tablet 00:00: MOUTH [place] TWICE Medical DAILY Branch OXYBUTYNIN 2020-10 Yes [id number] TAKE 1 Univers CHLORIDE 5 1-02 TABLET BY ity of mg tablet 00:00: MOUTH [place] TWICE Medical DAILY Branch OXYBUTYNIN 2020-10 Yes [id number] TAKE 1 Univers CHLORIDE 5 1-02 TABLET BY ity of mg tablet 00:00: MOUTH [place] TWICE Medical DAILY Branch OXYBUTYNIN 2020-10 Yes [id number] TAKE 1 Univers CHLORIDE 5 1-02 TABLET BY ity of mg tablet 00:00: MOUTH [place] TWICE Medical DAILY Branch OXYBUTYNIN 2020-10 Yes [id number] TAKE 1 Univers CHLORIDE 5 1-02 TABLET BY ity of mg tablet 00:00: MOUTH [place] TWICE Medical DAILY Branch OXYBUTYNIN 2020-10 Yes [id number] TAKE 1 Univers CHLORIDE 5 1-02 TABLET BY ity of mg tablet 00:00: MOUTH TWICE Medical DAILY Branch OXYBUTYNIN 2020-10 Yes [id number] TAKE 1 Univers CHLORIDE 5 1-02 TABLET BY ity of mg tablet 00:00: MOUTH [place] TWICE Medical DAILY Branch OXYBUTYNIN 2020-10 Yes [id number] TAKE 1 Univers CHLORIDE 5 1-02 TABLET BY ity of mg tablet 00:00: MOUTH TWICE Medical DAILY Branch OXYBUTYNIN 2020-10 Yes [id number] TAKE 1 Univers CHLORIDE 5 1-02 TABLET BY ity of mg tablet 00:00: MOUTH TWICE Medical DAILY Branch OXYBUTYNIN 2020-10 Yes [id number] TAKE 1 Univers CHLORIDE 5 1-02 TABLET BY ity of mg tablet 00:00: MOUTH [place] TWICE Medical DAILY Branch OXYBUTYNIN 2020-10 Yes [id number] TAKE 1 Univers CHLORIDE 5 1-02 TABLET BY ity of mg tablet 00:00: MOUTH [place] TWICE Medical DAILY Branch OXYBUTYNIN 2020-10 Yes [id number] TAKE 1 Univers CHLORIDE 5 1-02 TABLET BY ity of mg tablet 00:00: MOUTH [place] 00 TWICE Medical DAILY Branch OXYBUTYNIN 2020-10 Yes [id number] TAKE 1 Univers CHLORIDE 5 1-02 TABLET BY ity of mg tablet 00:00: MOUTH [place] 00 TWICE Medical DAILY Branch OXYBUTYNIN 2020- Yes [id number] TAKE 1 Univers CHLORIDE 5 1-02 TABLET BY ity of mg tablet 00:00: MOUTH 00 TWICE Medical DAILY Branch OXYBUTYNIN 2020- Yes [id number] TAKE 1 Univers CHLORIDE 5 1-02 TABLET BY ity of mg tablet 00:00: MOUTH 00 TWICE Medical DAILY Branch OXYBUTYNIN 2020-10 2022- No [id number] TAKE 1 Univers CHLORIDE 5 1-02 11-30 TABLET BY ity of mg tablet 00:00: 00:00 MOUTH [place] 00 :00 TWICE Medical DAILY Branch cephALEXin 2020-0 Yes [id number] 500mg Take 1 Univers 500 mg 7-23 [id number] tablet by ity of tablet 00:00: mouth ([facility]) Medical times Branch daily. cephALEXin 2020-0 Yes [id number] 500mg Take 1 Univers 500 mg 7-23 [id number] tablet by ity of tablet 00:00: mouth ([facility]) Medical times Branch daily. cephALEXin 2020-0 Yes [id number] 500mg Take 1 Univers 500 mg 7-23 [id number] tablet by ity of tablet 00:00: mouth () Medical times Branch daily. cephALEXin 2020-0 Yes [id number] 500mg Take 1 [facility] 500 mg 7-23 [id number] tablet by ity of tablet 00:00: mouth ([facility]) Medical times Branch daily. cephALEXin 2020-0 Yes [id number] 500mg Take 1 [facility] 500 mg 7-23 [id number] tablet by ity of tablet 00:00: [facility] [place] () Medical times Branch daily. cephALEXin 2020-0 Yes [id number] 500mg Take 1 [facility] 500 mg 7-23 [id number] tablet by ity of tablet 00:00: mouth () Medical times Branch daily. cephALEXin 2020-0 Yes [id number] 500mg Take 1 [facility] 500 mg 7-23 [id number] tablet by ity of tablet 00:00: mouth [place] ([facility]) Medical times Branch daily. cephALEXin 2021-0 Yes [id number] 500mg Take 1 [facility] 500 mg 7-23 [id number] tablet by ity of tablet 00:00: mouth [place] ([facility]) Medical times Branch daily. cephALEXin 1-0 Yes [id number] 500mg Take 1 [facility] 500 mg 7-23 [id number] tablet by ity of tablet 00:00: mouth (three) Medical times Branch daily. cephALEXin 2021-0 Yes [id number] 500mg Take 1 [facility] 500 mg 7-23 [id number] tablet by ity of tablet 00:00: mouth (three) Medical times Branch daily. cephALEXin 2021-0 Yes [id number] 500mg Take 1 [facility] 500 mg 7-23 [id number] tablet by ity of tablet 00:00: mouth (three) Medical times Branch daily. cephALEXin 2021-0 Yes [id number] 500mg Take 1 [facility] 500 mg 7-23 [id number] tablet by ity of tablet 00:00: mouth (three) Medical times Branch daily. cephALEXin 2021-0 Yes [id number] 500mg Take 1 [facility] 500 mg 7-23 [id number] tablet by ity of tablet 00:00: mouth (three) Medical times Branch daily. cephALEXin 2021-0 Yes [id number] 500mg Take 1 [facility] 500 mg 7-23 [id number] tablet by ity of tablet 00:00: mouth () Medical times Branch daily. cephALEXin 2021-0 Yes [id number] 500mg Take 1 [facility] 500 mg 7-23 [id number] tablet by ity of tablet 00:00: mouth () Medical times Branch daily. cephALEXin 2021-0 Yes [id number] 500mg Take 1 [facility] 500 mg 7-23 [id number] tablet by ity of tablet 00:00: mouth (three) Medical times Branch daily. cephALEXin 2021-0 Yes [id number] 500mg Take 1 [facility] 500 mg 7-23 [id number] tablet by ity of tablet 00:00: mouth (three) Medical times Branch daily. cephALEXin 2021-0 Yes [id number] 500mg Take 1 [facility] 500 mg 7-23 [id number] tablet by ity of tablet 00:00: mouth (three) Medical times Branch daily. cephALEXin 2021-0 Yes [id number] 500mg Take 1 [facility] 500 mg 7-23 [id number] tablet by ity of tablet 00:00: mouth (three) Medical times Branch daily. simvastatin 2020-0 Yes [id number] 5mg Take 1 [facility] 5 mg tablet 9-11 tablet by ity of 00:00: mouth at [place] 00 bedtime. Medical Branch metoprolol 2020-0 Yes [id number] 25mg Take 1 U nivers succinate 9-11 tablet by ity o f XL 25 mg 24 00:00: mouth 2 [place] hr tablet 00 (two) Medical times Branch daily. lisinopriL 2020-0 Yes [id number] 10mg Take 1 U nivers 10 mg 9-11 tablet by ity of tablet 00:00: mouth [place] 00 daily. Medical Branch apixaban 2020-0 Yes [id number] 5mg Take 1 [facility] (ELIQUIS) 5 9-11 tablet by ity of mg tablet 00:00: mouth 2 [place] 00 (two) Medical times Branch daily. Indication s: deep vein thrombosis prevention docusate 2020-0 Yes [id number] 100mg Take 1 Un dylon (DOK) 100 9-11 capsule by ity of mg capsule 00:00: mouth [place] (two) Medical times Branch daily. simvastatin 2020-0 Yes [id number] 5mg Take 1 [facility] 5 mg tablet 9-11 tablet by ity of 00:00: mouth at [place] 00 bedtime. Medical Branch metoprolol 2020-0 Yes [id number] 25mg Take 1 U nivers succinate 9-11 tablet by ity o f XL 25 mg 24 00:00: mouth 2 [place] hr tablet 00 (two) Medical times Branch daily. lisinopriL 2020-0 Yes [id number] 10mg Take 1 U nivers 10 mg 9-11 tablet by ity of tablet 00:00: mouth [place] 00 daily. Medical Branch apixaban 2020-0 Yes [id number] 5mg Take 1 [facility] (ELIQUIS) 5 9-11 tablet by ity of mg tablet 00:00: mouth 2 [place] 00 (two) Medical times Branch daily. Indication s: deep vein thrombosis prevention docusate 2020-0 Yes [id number] 100mg Take 1 Un dylon (DOK) 100 9-11 capsule by ity of mg capsule 00:00: mouth 2 [place] (two) Medical times Branch daily. simvastatin 2020-0 Yes [id number] 5mg Take 1 [facility] 5 mg tablet 9-11 tablet by ity of 00:00: mouth at [place] 00 bedtime. Medical Branch metoprolol 2020-0 Yes [id number] 25mg Take 1 U nivers succinate 9-11 tablet by ity o f XL 25 mg 24 00:00: mouth 2 [place] hr tablet 00 (two) Medical times Branch daily. lisinopriL 2020-0 Yes [id number] 10mg Take 1 U nivers 10 mg 9-11 tablet by ity of tablet 00:00: mouth [place] 00 daily. Medical Branch apixaban 2020-0 Yes [id number] 5mg Take 1 [facility] (ELIQUIS) 5 9-11 tablet by ity of mg tablet 00:00: mouth 2 [place] 00 (two) Medical times Branch daily. Indication s: deep vein thrombosis prevention docusate 2020-0 Yes [id number] 100mg Take 1 Un dylon (DOK) 100 9-11 capsule by ity of mg capsule 00:00: mouth 2 [place] (two) Medical times Branch daily. simvastatin 2020-0 Yes [id number] 5mg Take 1 [facility] 5 mg tablet 9-11 tablet by ity of 00:00: mouth at [place] 00 bedtime. Medical Branch metoprolol 2020-0 Yes [id number] 25mg Take 1 U nivers succinate 9-11 tablet by ity o f XL 25 mg 24 00:00: mouth 2 [place] hr tablet 00 (two) Medical times Branch daily. lisinopriL 2020-0 Yes [id number] 10mg Take 1 U nivers 10 mg 9-11 tablet by ity of tablet 00:00: mouth [place] 00 daily. Medical Branch apixaban 2020-0 Yes [id number] 5mg Take 1 [facility] (ELIQUIS) 5 9-11 tablet by ity of mg tablet 00:00: mouth 2 [place] 00 (two) Medical times Branch daily. Indication s: deep vein thrombosis prevention docusate 2020-0 Yes [id number] 100mg Take 1 Un dylon (DOK) 100 9-11 capsule by ity of mg capsule 00:00: mouth 2 [place] (two) Medical times Branch daily. simvastatin 2020-0 Yes [id number] 5mg Take 1 [facility] 5 mg tablet 9-11 tablet by ity of 00:00: mouth at [place] 00 bedtime. Medical Branch metoprolol 2020-0 Yes [id number] 25mg Take 1 U nivers succinate 9-11 tablet by ity o f XL 25 mg 24 00:00: mouth 2 [place] hr tablet 00 (two) Medical times Branch daily. lisinopriL 2020-0 Yes [id number] 10mg Take 1 U nivers 10 mg 9-11 tablet by ity of tablet 00:00: mouth [place] 00 daily. Medical Branch apixaban 2020-0 Yes [id number] 5mg Take 1 [facility] (ELIQUIS) 5 9-11 tablet by ity of mg tablet 00:00: mouth 2 [place] 00 (two) Medical times Branch daily. Indication s: deep vein thrombosis prevention docusate 2020-0 Yes [id number] 100mg Take 1 Un dylon (DOK) 100 9-11 capsule by ity of mg capsule 00:00: mouth 2 [place] 00 (two) Medical times Branch daily. simvastatin 2020-0 Yes [id number] 5mg Take 1 [facility] 5 mg tablet 9-11 tablet by ity of 00:00: mouth at [place] 00 bedtime. Medical Branch metoprolol 2020-0 Yes [id number] 25mg Take 1 U nivers succinate 9-11 tablet by ity o f XL 25 mg 24 00:00: mouth 2 [place] hr tablet 00 (two) Medical times Branch daily. lisinopriL 2020-0 Yes [id number] 10mg Take 1 U nivers 10 mg 9-11 tablet by ity of tablet 00:00: mouth [place] 00 daily. Medical Branch apixaban 2020-0 Yes [id number] 5mg Take 1 [facility] (ELIQUIS) 5 9-11 tablet by ity of mg tablet 00:00: mouth 2 [place] 00 (two) Medical times Branch daily. Indication s: deep vein thrombosis prevention docusate 2020-0 Yes [id number] 100mg Take 1 Un dylon (DOK) 100 9-11 capsule by ity of mg capsule 00:00: mouth 2 [place] 00 (two) Medical times Branch daily. simvastatin 2020-0 Yes [id number] 5mg Take 1 [facility] 5 mg tablet 9-11 tablet by ity of 00:00: mouth at [place] 00 bedtime. Medical Branch metoprolol 2020-0 Yes [id number] 25mg Take 1 U nivers succinate 9-11 tablet by ity o f XL 25 mg 24 00:00: mouth 2 [place] hr tablet 00 (two) Medical times Branch daily. lisinopriL 2020-0 Yes [id number] 10mg Take 1 U nivers 10 mg 9-11 tablet by ity of tablet 00:00: mouth [place] 00 daily. Medical Branch apixaban 2020-0 Yes [id number] 5mg Take 1 [facility] (ELIQUIS) 5 9-11 tablet by ity of mg tablet 00:00: mouth 2 [place] 00 (two) Medical times Branch daily. Indication s: deep vein thrombosis prevention docusate 2020-0 Yes [id number] 100mg Take 1 Un dylon (DOK) 100 9-11 capsule by ity of mg capsule 00:00: mouth 2 [place] 00 (two) Medical times Branch daily. simvastatin 2020-0 Yes [id number] 5mg Take 1 [facility] 5 mg tablet 9-11 tablet by ity of 00:00: mouth at [place] 00 bedtime. Medical Branch metoprolol 2020-0 Yes [id number] 25mg Take 1 U nivers succinate 9-11 tablet by ity o f XL 25 mg 24 00:00: mouth 2 [place] hr tablet 00 (two) Medical times Branch daily. lisinopriL 2020-0 Yes [id number] 10mg Take 1 U nivers 10 mg 9-11 tablet by ity of tablet 00:00: mouth [place] 00 daily. Medical Branch apixaban 2020-0 Yes [id number] 5mg Take 1 [facility] (ELIQUIS) 5 9-11 tablet by ity of mg tablet 00:00: mouth 2 [place] 00 (two) Medical times Branch daily. Indication s: deep vein thrombosis prevention docusate 2020-0 Yes [id number] 100mg Take 1 Un dylon (DOK) 100 9-11 capsule by ity of mg capsule 00:00: mouth 2 [place] 00 (two) Medical times Branch daily. simvastatin 2020-0 Yes [id number] 5mg Take 1 [facility] 5 mg tablet 9-11 tablet by ity of 00:00: mouth at [place] 00 bedtime. Medical Branch metoprolol 2020-0 Yes [id number] 25mg Take 1 U nivers succinate 9-11 tablet by ity o f XL 25 mg 24 00:00: mouth 2 [place] hr tablet 00 (two) Medical times Branch daily. lisinopriL 2020-0 Yes [id number] 10mg Take 1 U nivers 10 mg 9-11 tablet by ity of tablet 00:00: mouth [place] 00 daily. Medical Branch apixaban 2020-0 Yes [id number] 5mg Take 1 [facility] (ELIQUIS) 5 9-11 tablet by ity of mg tablet 00:00: mouth 2 [place] 00 (two) Medical times Branch daily. Indication s: deep vein thrombosis prevention docusate 2020-0 Yes [id number] 100mg Take 1 Un dylon (DOK) 100 9-11 capsule by ity of mg capsule 00:00: mouth 2 [place] 00 (two) Medical times Branch daily. simvastatin 2020-0 Yes [id number] 5mg Take 1 [facility] 5 mg tablet 9-11 tablet by ity of 00:00: mouth at [place] 00 bedtime. Medical Branch metoprolol 2020-0 Yes [id number] 25mg Take 1 U nivers succinate 9-11 tablet by ity o f XL 25 mg 24 00:00: mouth 2 [place] hr tablet 00 (two) Medical times Branch daily. lisinopriL 2020-0 Yes [id number] 10mg Take 1 U nivers 10 mg 9-11 tablet by ity of tablet 00:00: mouth [place] 00 daily. Medical Branch apixaban 2020-0 Yes [id number] 5mg Take 1 [facility] (ELIQUIS) 5 9-11 tablet by ity of mg tablet 00:00: mouth 2 [place] 00 (two) Medical times Branch daily. Indication s: deep vein thrombosis prevention docusate 2020-0 Yes [id number] 100mg Take 1 Un dylon (DOK) 100 9-11 capsule by ity of mg capsule 00:00: mouth 2 [place] 00 (two) Medical times Branch daily. simvastatin 2020-0 Yes [id number] 5mg Take 1 [facility] 5 mg tablet 9-11 tablet by ity of 00:00: mouth at [place] 00 bedtime. Medical Branch metoprolol 2020-0 Yes [id number] 25mg Take 1 U nivers succinate 9-11 tablet by ity o f XL 25 mg 24 00:00: mouth 2 [place] hr tablet 00 (two) Medical times Branch daily. lisinopriL 2020-0 Yes [id number] 10mg Take 1 U nivers 10 mg 9-11 tablet by ity of tablet 00:00: mouth [place] 00 daily. Medical Branch apixaban 2020-0 Yes [id number] 5mg Take 1 [facility] (ELIQUIS) 5 9-11 tablet by ity of mg tablet 00:00: mouth 2 [place] 00 (two) Medical times Branch daily. Indication s: deep vein thrombosis prevention docusate 2020-0 Yes [id number] 100mg Take 1 Un dylon (DOK) 100 9-11 capsule by ity of mg capsule 00:00: mouth 2 [place] 00 (two) Medical times Branch daily. simvastatin 2020-0 Yes [id number] 5mg Take 1 [facility] 5 mg tablet 9-11 tablet by ity of 00:00: mouth at [place] 00 bedtime. Medical Branch metoprolol 2020-0 Yes [id number] 25mg Take 1 U nivers succinate 9-11 tablet by ity o f XL 25 mg 24 00:00: mouth 2 [place] hr tablet 00 (two) Medical times Branch daily. lisinopriL 2020-0 Yes [id number] 10mg Take 1 U nivers 10 mg 9-11 tablet by ity of tablet 00:00: mouth [place] 00 daily. Medical Branch apixaban 2020-0 Yes [id number] 5mg Take 1 [facility] (ELIQUIS) 5 9-11 tablet by ity of mg tablet 00:00: mouth 2 00 (two) Medical times Branch daily. Indication s: deep vein thrombosis prevention docusate 2020-0 Yes [id number] 100mg Take 1 Un dylon (DOK) 100 9-11 capsule by ity of mg capsule 00:00: mouth 2 [place] (two) Medical times Branch daily. simvastatin 2020-0 Yes [id number] 5mg Take 1 [facility] 5 mg tablet 9-11 tablet by ity of 00:00: mouth at 00 bedtime. Medical Branch metoprolol 2020-0 Yes [id number] 25mg Take 1 U nivers succinate 9-11 tablet by ity o f XL 25 mg 24 00:00: mouth 2 [place] hr tablet 00 (two) Medical times Branch daily. lisinopriL 2020-0 Yes [id number] 10mg Take 1 U nivers 10 mg 9-11 tablet by ity of tablet 00:00: mouth [place] 00 daily. Medical Branch apixaban 2020-0 Yes [id number] 5mg Take 1 [facility] (ELIQUIS) 5 9-11 tablet by ity of mg tablet 00:00: mouth 2 [place] 00 (two) Medical times Branch daily. Indication s: deep vein thrombosis prevention docusate 2020-0 Yes [id number] 100mg Take 1 Un dylon (DOK) 100 9-11 capsule by ity of mg capsule 00:00: mouth 2 [place] 00 (two) Medical times Branch daily. simvastatin 2020-0 Yes [id number] 5mg Take 1 [facility] 5 mg tablet 9-11 tablet by ity of 00:00: mouth at [place] 00 bedtime. Medical Branch metoprolol 2020-0 Yes [id number] 25mg Take 1 U nivers succinate 9-11 tablet by ity o f XL 25 mg 24 00:00: mouth 2 [place] as hr tablet 00 (two) Medical times Branch daily. lisinopriL 2020-0 Yes [id number] 10mg Take 1 U nivers 10 mg 9-11 tablet by ity of tablet 00:00: mouth [place] 00 daily. Medical Branch apixaban 2020-0 Yes [id number] 5mg Take 1 [facility] (ELIQUIS) 5 9-11 tablet by ity of mg tablet 00:00: mouth 2 [place] 00 (two) Medical times Branch daily. Indication s: deep vein thrombosis prevention docusate 2020-0 Yes [id number] 100mg Take 1 Un dylon (DOK) 100 9-11 capsule by ity of mg capsule 00:00: mouth 2 [place] 00 (two) Medical times Branch daily. simvastatin 2020-0 Yes [id number] 5mg Take 1 [facility] 5 mg tablet 9-11 tablet by ity of 00:00: mouth at [place] 00 bedtime. Medical Branch metoprolol 2020-0 Yes [id number] 25mg Take 1 U nivers succinate 9-11 tablet by ity o f XL 25 mg 24 00:00: mouth 2 [place] hr tablet 00 (two) Medical times Branch daily. lisinopriL 2020-0 Yes [id number] 10mg Take 1 U nivers 10 mg 9-11 tablet by ity of tablet 00:00: mouth [place] 00 daily. Medical Branch apixaban 2020-0 Yes [id number] 5mg Take 1 [facility] (ELIQUIS) 5 9-11 tablet by ity of mg tablet 00:00: mouth 2 [place] 00 (two) Medical times Branch daily. Indication s: deep vein thrombosis prevention docusate 2020-0 Yes [id number] 100mg Take 1 Un dylon (DOK) 100 9-11 capsule by ity of mg capsule 00:00: mouth 2 [place] 00 (two) Medical times Branch daily. simvastatin 2020-0 Yes [id number] 5mg Take 1 [facility] 5 mg tablet 9-11 tablet by ity of 00:00: mouth at [place] 00 bedtime. Medical Branch metoprolol 2020-0 Yes [id number] 25mg Take 1 U nivers succinate 9-11 tablet by ity o f XL 25 mg 24 00:00: mouth 2 [place] as hr tablet 00 (two) Medical times Branch daily. lisinopriL 2020-0 Yes [id number] 10mg Take 1 U nivers 10 mg 9-11 tablet by ity of tablet 00:00: mouth [place] 00 daily. Medical Branch apixaban 2020-0 Yes [id number] 5mg Take 1 [facility] (ELIQUIS) 5 9-11 tablet by ity of mg tablet 00:00: mouth 2 [place] 00 (two) Medical times Branch daily. Indication s: deep vein thrombosis prevention docusate 2020-0 Yes [id number] 100mg Take 1 Un dylon (DOK) 100 9-11 capsule by ity of mg capsule 00:00: mouth 2 [place] 00 (two) Medical times Branch daily. simvastatin 2020-0 Yes [id number] 5mg Take 1 [facility] 5 mg tablet 9-11 tablet by ity of 00:00: mouth at [place] 00 bedtime. Medical Branch metoprolol 2020-0 Yes [id number] 25mg Take 1 U nivers succinate 9-11 tablet by ity o f XL 25 mg 24 00:00: mouth 2 [place] as hr tablet 00 (two) Medical times Branch daily. lisinopriL 2020-0 Yes [id number] 10mg Take 1 U nivers 10 mg 9-11 tablet by ity of tablet 00:00: mouth [place] 00 daily. Medical Branch apixaban 2020-0 Yes [id number] 5mg Take 1 [facility] (ELIQUIS) 5 9-11 tablet by ity of mg tablet 00:00: mouth 2 [place] 00 (two) Medical times Branch daily. Indication s: deep vein thrombosis prevention docusate 2020-0 Yes [id number] 100mg Take 1 Un dylon (DOK) 100 9-11 capsule by ity of mg capsule 00:00: mouth 2 [place] 00 (two) Medical times Branch daily. simvastatin 2020-0 Yes [id number] 5mg Take 1 [facility] 5 mg tablet 9-11 tablet by ity of 00:00: mouth at [place] 00 bedtime. Medical Branch metoprolol 2020-0 Yes [id number] 25mg Take 1 U nivers succinate 9-11 tablet by ity o f XL 25 mg 24 00:00: mouth 2 [place] as hr tablet 00 (two) Medical times Branch daily. lisinopriL 2020-0 Yes [id number] 10mg Take 1 U nivers 10 mg 9-11 tablet by ity of tablet 00:00: mouth [place] 00 daily. Medical Branch apixaban 2020-0 Yes [id number] 5mg Take 1 [facility] (ELIQUIS) 5 9-11 tablet by ity of mg tablet 00:00: mouth 2 [place] 00 (two) Medical times Branch daily. Indication s: deep vein thrombosis prevention docusate 2020-0 Yes [id number] 100mg Take 1 Un dylon (DOK) 100 9-11 capsule by ity of mg capsule 00:00: mouth 2 [place] 00 (two) Medical times Branch daily. simvastatin 2020-0 Yes [id number] 5mg Take 1 [facility] 5 mg tablet 9-11 tablet by ity of 00:00: mouth at [place] 00 bedtime. Medical Branch metoprolol 2020-0 Yes [id number] 25mg Take 1 U nivers succinate 9-11 tablet by ity o f XL 25 mg 24 00:00: mouth 2 [place] as hr tablet 00 (two) Medical times Branch daily. lisinopriL 2020-0 Yes [id number] 10mg Take 1 U nivers 10 mg 9-11 tablet by ity of tablet 00:00: mouth [place] 00 daily. Medical Branch apixaban 2019-0 Yes [id number] 5mg Take 1 [facility] (ELIQUIS) 5 9-11 tablet by ity of mg tablet 00:00: mouth 2 [place] 00 (two) Medical times Branch daily. Indication s: deep vein thrombosis prevention docusate 2019-0 Yes [id number] 100mg Take 1 Un dylon (DOK) 100 9-11 capsule by ity of mg capsule 00:00: mouth 2 [place] 00 (two) Medical times Branch daily. Acetaminoph 2017-10 No 1 tab, PO, Memoria en 325 MG / 11-18 TID, PRN l Hydrocodone 20:22: Pain, X 30 [place] Bitartrate 00 day, # 90 10 MG Oral day, 0 Tablet Refill(s), [[place] given to ] patient Acetaminoph 2017-10 No 1 tab, PO, Memoria en 325 MG / 11-18 TID, PRN l Hydrocodone 20:22: Pain, X 30 [place] Bitartrate 00 day, # 90 10 MG Oral day, 0 Tablet Refill(s), [[place] given to ] patient Acetaminoph 2017-10 No 1 tab, PO, Memoria en 325 MG / 0-23 TID, PRN l Hydrocodone 19:03: Pain, X 20 [place] Bitartrate 00 day, # 60 10 MG Oral tab, 0 Tablet Refill(s), [[place] given to ] patient [facility] 2017-10 No 1 tab, PO, Memoria en 325 MG / 0-23 TID, PRN l Hydrocodone 19:03: Pain, X 20 [place] Bitartrate 00 day, # 60 10 MG Oral tab, 0 Tablet Refill(s), [[place] given to ] patient [facility] No 1 tab, PO, Memoria en 325 MG / 9-21 TID, PRN l Hydrocodone 21:25: Pain, X 20 [place] Bitartrate 00 day, # 60 10 MG Oral tab, 0 Tablet Refill(s), [[place] given to ] patient [facility] No 1 tab, PO, Memoria en 325 MG / 9-21 TID, PRN l Hydrocodone 21:25: Pain, X 20 [place] Bitartrate 00 day, # 60 10 MG Oral tab, 0 Tablet Refill(s), [[place] given to ] patient [facility] No 1 tab, PO, Memoria en 325 MG / 8-21 Q6H, PRN l Hydrocodone 14:50: for pain, H [place] Bitartrate 00 X 6 day, # 10 MG Oral 60 tab, 0 Tablet Refill(s), [[place] given to ] patient [facility] No 1 tab, PO, Memoria en 325 MG / 8-21 Q6H, PRN l Hydrocodone 14:50: for pain, H [place] Bitartrate 00 X 6 day, # 10 MG Oral 60 tab, 0 Tablet Refill(s), [[place] given to ] patient [facility] No 1 tab, PO, Memoria en 325 MG / 7-19 TID, PRN l Hydrocodone 16:11: Pain, X 20 [place] Bitartrate 00 day, # 60 10 MG Oral tab, 0 Tablet Refill(s), [[place] given to ] patient Acetaminoph 2018-0 No 1 tab, PO, Memoria en 325 MG / 7-19 TID, PRN l Hydrocodone 16:11: Pain, X 20 [place] Bitartrate 00 day, # 60 10 MG Oral tab, 0 Tablet Refill(s), [[place] given to ] patient Bupivacaine 2018-0 Yes 4 mL, Memor ia Hydrochlori 5-18 Route: l de 2.5 17:15: intra-BLAKE Sydnie nn MG/ML 00 CULAR, Injectable Dosing Solution Weight 78.182, kg, ONCE, (Preservat maite Free), Start date: 03/09/18 12:15:00 CDT, Stop date: 03/09/18 12:15:00 CDT Depo-Medrol 2018-0 Yes 40 mg, Addy liliana 5-18 Route: l 17:15: intra-BLAKE [place] 00 CULAR, Drug form: SUSP, ONCE, Dosing Weight 78.182, kg, Start date: 03/09/18 12:15:00 CDT, Stop date: 03/09/18 12:15:00 CDT Lidocaine 2018-0 Yes 10 mL, Memori a Hydrochlori 5-18 Route: l de 10 MG/ML 17:15: SUB-Q, Herm carol Injectable 00 Dosing Solution Weight 78.182, kg, ONCE, Start date: 03/09/18 12:15:00 CDT, Stop date: 03/09/18 12:15:00 CDT Bupivacaine 2018-0 Yes 4 mL, Memor ia Hydrochlori 5-18 Route: l de 2.5 17:15: intra-BLAKE Sydnie nn MG/ML 00 CULAR, Injectable Dosing Solution Weight 78.182, kg, ONCE, (Preservat maite Free), Start date: 03/09/18 12:15:00 CDT, Stop date: 03/09/18 12:15:00 CDT Depo-Medrol 2018-0 Yes 40 mg, Addy liliana 5-18 Route: l 17:15: intra-BLAKE [place] 00 CULAR, Drug form: SUSP, ONCE, Dosing Weight 78.182, kg, Start date: 03/09/18 12:15:00 CDT, Stop date: 03/09/18 12:15:00 CDT Lidocaine 2018-0 Yes 10 mL, Memori a Hydrochlori 5-18 Route: l de 10 MG/ML 17:15: SUB-Q, Herm carol Injectable 00 Dosing Solution Weight 78.182, kg, ONCE, Start date: 03/09/18 12:15:00 CDT, Stop date: 03/09/18 12:15:00 CDT Cyclobenzap Yes 10 mg = 1 M emoria rine 4-18 tab, PO, l hydrochlori 15:24: TID, PRN He rmann de 10 MG 00 for spasm, Oral Tablet # 60 tab, [Flexeril] 0 Refill(s), Pharmacy: [facility] Cyclobenzap Yes 10 mg = 1 M emoria rine 4-18 tab, PO, l hydrochlori 15:24: TID, PRN He rmann de 10 MG 00 for spasm, Oral Tablet # 60 tab, [Flexeril] 0 Refill(s), Pharmacy: [facility] SMOG Enema No Notes: Non M emoria 3-31 formulary l 12:15: item [place] 00 saline for irrigation (1L bottle) 100 mL, mineral oil 100 mL, glycerine 100 mL. Dispense (300 ml) in 1L NS bottle SMOG Enema No Notes: Non M emoria 3-31 formulary l 12:15: item [place] 00 saline for irrigation (1L bottle) 100 mL, mineral oil 100 mL, glycerine 100 mL. Dispense (300 ml) in 1L NS bottle Aspirin No Notes: Do Memor ia 3-30 not crush l 14:00: or chew. [place] 00 (Same As: Ecotrin) Aspirin No Notes: Do Memor ia 3-30 not crush l 14:00: or chew. [place] 00 (Same As: Ecotrin) magnesium No Notes: Memori a citrate 3-30 (Same as: l 58.2 MG/ML 11:36: Citrate of H ermann Oral 00 Magnesia) Solution Concentrat ion: 1.745 gm / 30 mL Docusate Yes 100 mg = 1 Mem oria Sodium 100 3-30 cap, PO, l MG Oral 11:36: BID, # 28 Sydnie nn Capsule 00 cap, 0 Refill(s) Cyclobenzap No 10 mg, PO, Memoria rine 3-30 TID, PRN l hydrochlori 11:36: Muscle Herm carol de 10 MG 00 Spasm, X Oral Tablet 14 day, # [Flexeril] 42 tab, 0 Refill(s) magnesium No Notes: Memori a citrate 3-30 (Same as: l 58.2 MG/ML 11:36: Citrate of H ermann Oral 00 Magnesia) Solution Concentrat ion: 1.745 gm / 30 mL Docusate Yes 100 mg = 1 Mem oria Sodium 100 3-30 cap, PO, l MG Oral 11:36: BID, # 28 Sydnie nn Capsule 00 cap, 0 Refill(s) Cyclobenzap No 10 mg, PO, Memoria rine 3-30 TID, PRN l hydrochlori 11:36: Muscle Herm carol de 10 MG 00 Spasm, X Oral Tablet 14 day, # [Flexeril] 42 tab, 0 Refill(s) Lovenox No Notes: Memoria 3-30 (Same as: l 06:00: Lovenox) [place] Lovenox No Notes: Memoria 3-30 (Same as: l 06:00: Lovenox) Simvastatin No Notes: Addy liliana 3-30 (Same as: l 02:00: Zocor) [place] 00 Simvastatin No Notes: Addy liliana 3-30 (Same as: l 02:00: Zocor) Famotidine No Notes: Memor ia 3-29 (Same as: l 14:00: Pepcid) Can be dilute in 5-10cc NS IVP: Slow IV push over at least 2 minutes. POLYETHYLEN No Notes: Addy liliana E GLYCOL 3-29 Dissolve l 3350 14:00: in 8 oz of [place] 00 water or juice. (Same as: Miralax) Docusate No Notes: Memoria 3-29 (Same as: l 14:00: Colace) [place] 00 (Do Not Crush) sennosides, No Notes: Addy liliana SNF 3-29 (Same as: l 14:00: Senokot) [place] Streptococc No Notes: Addy liliana us 3-29 Shake well l pneumoniae 14:00: prior to Her bhagat serotype 1 00 use (Same capsular as: antigen Prevnar diphtheria 13) [id number] protein conjugate vaccine / Streptococc us pneumoniae serotype 14 capsular antigen diphtheria [id number] protein conjugate vaccine / Streptococc us pneumoniae serotype 18C capsular antigen d gabapentin No Notes: Memor ia 300 MG Oral 3-29 (Same as: l Capsule 14:00: Neurontin) Herm carol Saline No Notes: Memoria Flush 0.9% 3-29 (Same as: l 14:00: BD [place] Posiflush) Famotidine No Notes: Memor ia 3-29 (Same as: l 14:00: Pepcid) [place] Can be dilute in 5-10cc NS IVP: Slow IV push over at least 2 minutes. POLYETHYLEN No Notes: Addy liliana E GLYCOL 3-29 Dissolve l [id number] 14:00: in 8 oz of [place] water or juice. (Same as: Miralax) Docusate No Notes: Memoria 3-29 (Same as: l 14:00: Colace) [place] (Do Not Crush) sennosides, No Notes: Addy liliana SNF 3-29 (Same as: l 14:00: Senokot) [place] Streptococc No Notes: Addy liliana us 3-29 Shake well l pneumoniae 14:00: prior to Her bhagat serotype 1 00 use (Same capsular as: antigen Prevnar diphtheria 13) [id number] protein conjugate vaccine / Streptococc us pneumoniae serotype 14 capsular antigen diphtheria [id number] protein conjugate vaccine / Streptococc us pneumoniae serotype 18C capsular antigen d gabapentin No Notes: Memor ia 300 MG Oral 3-29 (Same as: l Capsule 14:00: Neurontin) Herm carol Saline No Notes: Memoria Flush 0.9% 3-29 (Same as: l 14:00: BD [place] 00 Posiflush) Cefazolin No Notes: Memori a 3-29 (Same as l 09:00: Ancef) Higinio Cefazolin 2018-0 No Notes: Memori a 3-29 (Same as l 09:00: Ancef) Dexamethaso 2017- No Notes: Addy liliana ne 3- Concentrat l 07:00: ion: [place] 00 4mg/ml Dexamethaso 2017- No Notes: Addy liliana ne - Concentrat l 07:00: ion: [place] 00 4mg/ml cyclobenzap No Notes: Addy liliana rine 3- (Same As: l 06:58: Flexeril) cyclobenzap 2017- No Notes: Addy liliana rine 3-29 (Same As: l 06:58: Flexeril) Ranitidine 2017- No 150 mg, 1 Me moria 150 MG Oral 3- cap, l Capsule 05:20: Route: PO, Herm craol 00 Drug form: CAP, Daily, Dosing Weight 80, kg, PRN Allergies, Start date: 01/18/18 0:20:00 CDT, Duration: 30 day, Stop date: 02/17/18 0:19:00 CDT Ranitidine No 150 mg, 1 Me moria 150 MG Oral - cap, l Capsule 05:20: Route: PO, Herm carol Drug form: CAP, Daily, Dosing Weight 80, kg, PRN Allergies, Start date: 01/18/18 0:20:00 CDT, Duration: 30 day, Stop date: 02/17/18 0:19:00 CDT Hydralazine No Notes: Addy liliana 3-29 (Same as: l 05:13: Apresoline ) Push over 5 minutes Labetalol No 10 mg, 2 Addy liliana 3-29 mL, Route: l 05:13: IVP, Drug form: INJ, Q15Min, Dosing Weight 80, kg, PRN Hypertensi on, Start date: 01/18/18 0:13:00 CDT, Duration: 3 doses or times, Stop date: Limited # of times Hydralazine No Notes: Addy liliana 3-29 (Same as: l 05:13: Apresoline ) Push over 5 minutes Labetalol 0 No 10 mg, 2 Addy liliana 3-29 mL, Route: l 05:13: IVP, Drug form: INJ, Q15Min, Dosing Weight 80, kg, PRN Hypertensi on, Start date: 01/18/18 0:13:00 CDT, Duration: 3 doses or times, Stop date: Limited # of times Naloxone No Notes: Memoria - Same as l 05:12: Narcan Hydromorpho No Notes: Addy liliana ne - (Same as: l 05:12: Dilaudid) conc = 0.5 mg/ml Hydromorph one [employer] Dose: ;Delay: ;Basal: Naloxone No Notes: Memoria 01-18 Same as l 05:12: Narcan Hydromorpho No Notes: Addy liliana ne 3- (Same as: l 05:12: Dilaudid) conc = 0.5 mg/ml Hydromorph one [employer] Dose: ;Delay: ;Basal: Bisacodyl No Notes: Memori a - (Same As: l 05:09: Dulcolax, Higinio Bisco-Lax) Ondansetron No Notes: Addy liliana -29 (Same as: l 05:09: Zofran) MEDICATION WASTE Product Size: 4 mg Product Wasted: ___ mg Promethazin No 12.5 mg, Me moria e - 0.5 mL, l 05:09: Route: IVPB, Drug form: INJ, Q6H, Dosing Weight 80, kg, PRN Nausea & Vomiting, Start date: 01/18/18 0:09:00 CDT, Duration: 30 day, Stop date: 02/17/18 0:08:00 CDT Morphine No Notes: Memoria 01-18 (Same l 05:09: as:MORPhin e Sulfate) Tramadol No Notes: Not Mem oria - to exceed l 05:09: 400mg/day. (Same As: Ultra) Acetaminoph No Notes: Do M emoria en 325 MG / 01-18 not exceed l Hydrocodone 05:09: 4gm/day of [place] Bitartrate 00 acetaminop 10 MG Oral hen. (Same Tablet as: [place] 325/10) Acetaminoph No Notes: Do M emomemoa en 01-18 not exceed l 05:09: 4 gm/day. [place] (Same as: Tylenol) Sodium No 1,000 mL, Memori a Chloride 01-18 Rate: 75 l 0.9% IV 05:09: ml/hr, Higinio 1,000 mL 00 Infuse over: 13.3 hr, Route: IV, Dosing Weight 80 kg, Total Volume: 1,000, Start date: 01/18/18 0:09:00 CDT, Duration: 30 day, Stop date: 02/17/18 0:08:00 CDT, 1.97, m2 Dextrose No 25 gm, 50 Addy liliana 50% Syringe 3-29 mL, Route: l 05:09: IVP, Drug Form: INJ, Dosing Weight 80, kg, PRN, PRN Abnormal Lab Result, Start date: 01/18/18 0:09:00 CDT, Duration: 30 day, Stop date: 02/17/18 0:08:00 CDT Regular No 60 units) Addy liliana Insulin, 01-18 WASTE: F/P l Human 100 05:09: - Black; E He rmann UNT/ML 00 - Injectable Municipal Solution Trash Bin Stable for 28 days at room temperatur e Expires in days from ____Date Saline No Notes: Memoria Flush 0.9% 01-18 (Same as: l 05:09: BD Posiflush) Bisacodyl No Notes: Memori a -29 (Same As: l 05:09: Dulcolax, [place] 00 Bisco-Lax) Ondansetron No Notes: Addy liliana -29 (Same as: l 05:09: Zofran) MEDICATION WASTE Product Size: 4 mg Product Wasted: ___ mg Promethazin No 12.5 mg, Me moria e -29 0.5 mL, l 05:09: Route: Higinio 00 IVPB, Drug form: INJ, Q6H, Dosing Weight 80, kg, PRN Nausea & Vomiting, Start date: 01/18/18 0:09:00 CDT, Duration: 30 day, Stop date: 02/17/18 0:08:00 CDT Morphine No Notes: Memoria 01-18 (Same l 05:09: as:MORPhin [place] e Sulfate) Tramadol No Notes: Not Mem oria 01-18 to exceed l 05:09: 400mg/day. Higinio 00 (Same As: Ultram) Acetaminoph No Notes: Do M emoria en 325 MG / 01-18 not exceed l Hydrocodone 05:09: 4gm/day of [place] Bitartrate 00 acetaminop 10 MG Oral hen. (Same Tablet as: [place] 325/10) Acetaminoph No Notes: Do M emoria en - not exceed l 05:09: 4 gm/day. Higinio 00 (Same as: Tylenol) Sodium No 1,000 mL, Memori a Chloride 01-18 Rate: 75 l 0.9% IV 05:09: ml/hr, [place] 1,000 mL 00 Infuse over: 13.3 hr, Route: IV, Dosing Weight 80 kg, Total Volume: 1,000, Start date: 01/18/18 0:09:00 CDT, Duration: 30 day, Stop date: 02/17/18 0:08:00 CDT, 1.97, m2 Dextrose No 25 gm, 50 Addy liliana 50% Syringe 3-29 mL, Route: l 05:09: IVP, Drug Higinio 00 Form: INJ, Dosing Weight 80, kg, PRN, PRN Abnormal Lab Result, Start date: 01/18/18 0:09:00 CDT, Duration: 30 day, Stop date: 02/17/18 0:08:00 CDT Regular No 60 units) Addy liliana Insulin, 01-18 WASTE: F/P l Human 100 05:09: - Black; E He rmann UNT/ML 00 - Injectable Municipal Solution Trash Bin Stable for 28 days at room temperatur e Expires in days from ____Date Saline 2017-0 No Notes: Memoria Flush 0.9% 01-18 (Same as: l 05:09: BD [place] 00 Posiflush) Ondansetron 2018-0 No 4 mg, Memor ia 01-18 Route: l 05:00: IVP, ONCE, Dosing Weight 80, kg, PRN Nausea & Vomiting, Start date: 01/18/18 0:00:00 CDT Naloxone 2018-0 No 0.4 mg, Memori a 01-18 Route: l 05:00: IVP, Q2MIN, Dosing Weight 80, kg, PRN Narcotic Reversal, Start date: 01/18/18 0:00:00 CDT, Duration: 8 doses or times, Stop date: Limited # of times Oxycodone 2017-0 No 5 mg, Memoria 01-18 Route: PO, l 05:00: Drug form: [place] 00 TAB, Q4H, Dosing Weight 80, kg, PRN Pain Score 4-6, Start date: 01/18/18 0:00:00 CDT, Duration: 30 day, Stop date: 02/16/18 23:59:00 CDT Flumazenil 2018-0 No 0.2 mg, Addy liliana 01-18 Route: l 05:00: IVP, PRN, Dosing Weight 80, kg, PRN Benzodiaze pine Reversal, Initial dose, Start date: 01/18/18 0:00:00 CDT, Duration: 30 day, Stop date: 02/16/18 23:59:00 CDT Fentanyl 2017-0 No 50 Memoria 01-18 microgram, l 05:00: Route: IVP, Q5Min, Dosing Weight 80, kg, PRN Pain Score 7-10, Priority: Routine, Start date: 01/18/18 0:00:00 CDT, Duration: 2 doses or times, Stop date: Limited # of times Ondansetron 2018-0 No 4 mg, Memor ia 01-18 Route: l 05:00: IVP, ONCE, Dosing Weight 80, kg, PRN Nausea & Vomiting, Start date: 01/18/18 0:00:00 CDT Naloxone 2017-0 No 0.4 mg, Memori a 01-18 Route: l 05:00: IVP, [place] 00 Q2MIN, Dosing Weight 80, kg, PRN Narcotic Reversal, Start date: 01/18/18 0:00:00 CDT, Duration: 8 doses or times, Stop date: Limited # of times Oxycodone 2017-0 No 5 mg, Memoria 01-18 Route: PO, l 05:00: Drug form: [place] 00 TAB, Q4H, Dosing Weight 80, kg, PRN Pain Score 4-6, Start date: 01/18/18 0:00:00 CDT, Duration: 30 day, Stop date: 02/16/18 23:59:00 CDT Flumazenil 2017-0 No 0.2 mg, Addy liliana 01-18 Route: l 05:00: IVP, PRN, [place] 00 Dosing Weight 80, kg, PRN Benzodiaze pine Reversal, Initial dose, Start date: 01/18/18 0:00:00 CDT, Duration: 30 day, Stop date: 02/16/18 23:59:00 CDT Fentanyl 2017-0 No 50 Memoria 3- microgram, l 05:00: Route: [place] 00 IVP, Q5Min, Dosing Weight 80, kg, PRN Pain Score 7-10, Priority: Routine, Start date: 01/18/18 0:00:00 CDT, Duration: 2 doses or times, Stop date: Limited # of times ondansetron No Route: IV, Memoria (ANES) 01-18 Drug form: l 04:51: INJ, ONCE, Stop date: 01/17/18 23:51:00 CDT ondansetron 0 No Route: IV, Memoria (ANES) 01-18 Drug form: l 04:51: INJ, ONCE, Stop date: 01/17/18 23:51:00 CDT Isolyte S No Route: IV, Me moria PH 7.4 01-18 Total l (ANES) 1000 04:36: Volume: Her bhagat mL 00 1,000, Start date: 01/17/18 23:36:00 CDT, Stop date: 01/18/18 0:36:00 CDT Isolyte S No Route: IV, Me moria PH 7.4 01-18 Total l (ANES) 1000 04:36: Volume: Her bhagat mL 00 1,000, Start date: 01/17/18 23:36:00 CDT, Stop date: 01/18/18 0:36:00 CDT esmolol No Route: IV, Addy liliana (ANES) 01-18 Drug form: l 02:03: INJ, ONCE, Stop date: 01/17/18 21:03:00 CDT esmolol No Route: IV, Addy liliana (ANES) 01-18 Drug form: l 02:03: INJ, ONCE, Stop date: 01/17/18 21:03:00 CDT glycopyrrol No Route: IV, Memoria ate (ANES) 01-18 Drug form: l 01:43: INJ, ONCE, Stop date: 01/17/18 20:43:00 CDT rocuronium No Route: IV, M emoria (ANES) 01-18 Drug form: l 01:43: INJ, ONCE, Stop date: 01/17/18 20:43:00 CDT acetaminoph No Route: IV, Memoria en (ANES) 01-18 Drug form: l 01:43: INJ, ONCE, Stop date: 01/17/18 20:43:00 CDT glycopyrrol 0 No Route: IV, Memoria ate (ANES) 01-18 Drug form: l 01:43: INJ, ONCE, Stop date: 01/17/18 20:43:00 CDT rocuronium 0 No Route: IV, M emoria (ANES) 01-18 Drug form: l 01:43: INJ, ONCE, Stop date: 01/17/18 20:43:00 CDT acetaminoph No Route: IV, Memoria en (ANES) 01-18 Drug form: l 01:43: INJ, ONCE, Stop date: 01/17/18 20:43:00 CDT propofol 0 No Route: IV, Mem oria (ANES) 01-18 Drug form: l 01:12: INJ, ONCE, Stop date: 01/17/18 20:12:00 CDT propofol 2017-0 No Route: IV, Mem oria (ANES) 01-18 Drug form: l 01:12: INJ, ONCE, Stop date: 01/17/18 20:12:00 CDT ceFAZolin 2017-0 No Route: IV, Me moria (ANES) 01-18 Drug form: l 00:47: INJ, ONCE, Stop date: 01/17/18 19:47:00 CDT ceFAZolin 2017-0 No Route: IV, Me moria (ANES) 01-18 Drug form: l 00:47: INJ, ONCE, Stop date: 01/17/18 19:47:00 CDT fentaNYL 2017-0 No Route: IV, Mem oria (ANES) 01-17 Drug form: l 23:56: INJ, ONCE, Stop date: 01/17/18 18:56:00 CDT dexamethaso 2017-0 No Route: IV, Memoria ne (ANES) 01-17 Drug form: l 23:56: INJ, ONCE, Stop date: 01/17/18 18:56:00 CDT lidocaine 2017-0 No Route: IV, Me moria (ANES) 01-17 Drug form: l 23:56: INJ, ONCE, Stop date: 01/17/18 18:56:00 CDT propofol 2017-0 No Route: IV, Mem oria (ANES) 01-17 Drug form: l 23:56: INJ, ONCE, Stop date: 01/17/18 18:56:00 CDT phenylephri 2017-0 No Route: IV, Memoria ne (ANES) 01-17 Drug form: l 23:56: INJ, ONCE, Stop date: 01/17/18 18:56:00 CDT midazolam 2017-0 No Route: IV, Me moria (ANES) 01-17 Drug form: l 23:56: SOLN, ONCE, Stop date: 01/17/18 18:56:00 CDT succinylcho 2017-0 No Route: IV, Memoria line (ANES) - Drug form: l 23:56: INJ, ONCE, Stop date: 01/17/18 18:56:00 CDT fentaNYL 2017-0 No Route: IV, Mem oria (ANES) 01-17 Drug form: l 23:56: INJ, ONCE, Stop date: 01/17/18 18:56:00 CDT dexamethaso 2017-0 No Route: IV, Memoria ne (ANES) 01-17 Drug form: l 23:56: INJ, ONCE, Stop date: 01/17/18 18:56:00 CDT lidocaine 2017-0 No Route: IV, Me moria (ANES) 01-17 Drug form: l 23:56: INJ, ONCE, Stop date: 01/17/18 18:56:00 CDT propofol 2017-0 No Route: IV, Mem oria (ANES) 01-17 Drug form: l 23:56: INJ, ONCE, Stop date: 01/17/18 18:56:00 CDT phenylephri 0 No Route: IV, Memoria ne (ANES) 01-17 Drug form: l 23:56: INJ, ONCE, Stop date: 01/17/18 18:56:00 CDT midazolam 2017-0 No Route: IV, Me moria (ANES) 01-17 Drug form: l 23:56: SOLN, ONCE, Stop date: 01/17/18 18:56:00 CDT succinylcho 0 No Route: IV, Memoria line (ANES) 01-17 Drug form: l 23:56: INJ, ONCE, Stop date: 01/17/18 18:56:00 CDT Sodium 2017-0 No Route: IV, Memor ia Chloride 01-17 Drug form: l 0.9% IV 23:40: INJ, Start Herm carol (ANES) 100 00 date: mL + 01/17/18 norepinephr 18:40:00 ine (ANES) CDT, Stop 1000 date: microgram 01/17/18 19:40:00 CDT Sodium 2018-0 No Route: IV, Memor ia Chloride 01-17 Drug form: l 0.9% IV 23:40: INJ, Start Herm carol (ANES) 100 00 date: mL + 01/17/18 norepinephr 18:40:00 ine (ANES) CDT, Stop 1000 date: microgram 01/17/18 19:40:00 CDT ketAMINE 2018-0 No Route: IV, Mem oria (ANES) 10 01-17 Drug form: l mg 23:26: INJ, Start Higinio 00 date: 01/17/18 18:26:00 CDT, Stop date: 01/17/18 19:26:00 CDT ketAMINE 20180 No Route: IV, Mem oria (ANES) 10 01-17 Drug form: l mg 23:26: INJ, Start Higinio 00 date: 01/17/18 18:26:00 CDT, Stop date: 01/17/18 19:26:00 CDT Sodium 2017-0 No Route: IV, Memor ia Chloride 3- Drug form: l 0.9% IV 23:25: INJ, Start Herm carol (ANES) 100 00 date: mL + 01/17/18 SUFentanil 18:25:00 (ANES) 100 CDT, Stop microgram date: 01/17/18 19:25:00 CDT Sodium 0 No Route: IV, Memor ia Chloride 3- Drug form: l 0.9% IV 23:25: INJ, Start Herm carol (ANES) 100 00 date: mL + 01/17/18 dexmedetomi 18:25:00 dine (ANES) CDT, Stop 200 date: microgram 01/17/18 19:25:00 CDT Sodium 2018-0 No Route: IV, Memor ia Chloride 3-28 Total l 0.9% IV 23:25: Volume: Higinio (ANES) 1000 00 1,000, mL Start date: 01/17/18 18:25:00 CDT, Stop date: 01/17/18 19:25:00 CDT propofol 2018-0 No Route: IV, Mem oria (ANES) 1000 3 Drug form: l mg 23:25: INJ, Start [place] 00 date: 01/17/18 18:25:00 CDT, Stop date: 01/17/18 19:25:00 CDT Sodium 2018-0 No Route: IV, Memor ia Chloride 3-28 Drug form: l 0.9% IV 23:25: INJ, Start Herm carol (ANES) 100 00 date: mL + 01/17/18 SUFentanil 18:25:00 (ANES) 100 CDT, Stop microgram date: 01/17/18 19:25:00 CDT Sodium 2018-0 No Route: IV, Memor ia Chloride 3-28 Drug form: l 0.9% IV 23:25: INJ, Start Herm carol (ANES) 100 00 date: mL + 01/17/18 dexmedetomi 18:25:00 dine (ANES) CDT, Stop 200 date: microgram 01/17/18 19:25:00 CDT Sodium 2018-0 No Route: IV, Memor ia Chloride 3-28 Total l 0.9% IV 23:25: Volume: Higinio (ANES) 1000 00 1,000, mL Start date: 01/17/18 18:25:00 CDT, Stop date: 01/17/18 19:25:00 CDT propofol 2018-0 No Route: IV, Mem oria (ANES) 1000 01-17 Drug form: l mg 23:25: INJ, Start [place] 00 date: 01/17/18 18:25:00 CDT, Stop date: 01/17/18 19:25:00 CDT Lactated 2017-0 No Route: IV, Mem oria Ringers 3-28 Total l Injection 22:47: Volume: Sydnie nn IV (ANES) 00 1,000, 1000 mL Start date: 01/17/18 17:47:00 CDT, Stop date: 01/17/18 18:47:00 CDT Lactated 2017-0 No Route: IV, Mem oria Ringers 3-28 Total l Injection 22:47: Volume: Sydnie nn IV (ANES) 00 1,000, 1000 mL Start date: 01/17/18 17:47:00 CDT, Stop date: 01/17/18 18:47:00 CDT gabapentin 2018-0 No 300 mg, Addy liliana 300 MG Oral 01-17 Route: PO, l Capsule 22:10: Drug form: Herm carol 00 CAP, ONCE, Dosing Weight 80, kg, Start date: 01/17/18 17:10:00 CDT, Stop date: 01/17/18 17:10:00 CDT tramadol 2018-0 No 50 mg, Memoria hydrochlori 01-17 Route: PO, l de 50 MG 22:10: Drug form: Her bhagat Oral Tablet 00 TAB, ONCE, Dosing Weight 80, kg, Start date: 01/17/18 17:10:00 CDT, Stop date: 01/17/18 17:10:00 CDT gabapentin 2018-0 No 300 mg, Addy liliana 300 MG Oral 01-17 Route: PO, l Capsule 22:10: Drug form: Herm carol 00 CAP, ONCE, Dosing Weight 80, kg, Start date: 01/17/18 17:10:00 CDT, Stop date: 01/17/18 17:10:00 CDT tramadol 2018-0 No 50 mg, Memoria hydrochlori 01-17 Route: PO, l de 50 MG 22:10: Drug form: Her bhagat Oral Tablet 00 TAB, ONCE, Dosing Weight 80, kg, Start date: 01/17/18 17:10:00 CDT, Stop date: 01/17/18 17:10:00 CDT bupivacaine 2017-0 No Notes: Addy liliana liposome - (Same as: l 04:00: Exparel) NOT FOR IV use Postoperat maite analgesia: Infiltrati on (local): Dose is based on surgical site and volume required to cover the area (in general, the maximum total dose is 266 mg). Bunionecto my: 7 mL into the tissues surroundin g the osteotomy and 1 mL into the subcutaneo us tissue of the surgical site (total dose = 8 mL [106 mg]) Hemorrhoid ectomy: 30 mL (20 mL vial diluted with 10 mL NS) divided and administer ed as 6 injections of 5 mL each (total dose = 30 mL [266 mg]) ceFAZolin + 2017-0 No Notes: Addy liliana sterile - (Same As: l water 20 mL 04:00: Ancef Herm carol Kefzol) MEDICATION WASTE Product Size: 1000 mg Product Wasted: ___ mg bupivacaine 2017-0 No Notes: Addy liliana liposome - (Same as: l 04:00: Exparel) [place] 00 NOT FOR IV use Postoperat maite analgesia: Infiltrati on (local): Dose is based on surgical site and volume required to cover the area (in general, the maximum total dose is 266 mg). Bunionecto my: 7 mL into the tissues surroundin g the osteotomy and 1 mL into the subcutaneo us tissue of the surgical site (total dose = 8 mL [106 mg]) Hemorrhoid ectomy: 30 mL (20 mL vial diluted with 10 mL NS) divided and administer ed as 6 injections of 5 mL each (total dose = 30 mL [266 mg]) ceFAZolin + No Notes: Addy liliana sterile 01-17 (Same As: l water 20 mL 04:00: Ancef, Herm carol 00 Kefzol) MEDICATION WASTE Product Size: 1000 mg Product Wasted: ___ mg Streptococc No Notes: Addy liliana us 01-16 Shake well l pneumoniae 14:00: prior to Her bhagat serotype 1 use (Same capsular as: antigen Prevnar diphtheria 13) [id number] protein conjugate vaccine / Streptococc us pneumoniae serotype 14 capsular antigen diphtheria [id number] protein conjugate vaccine / Streptococc us pneumoniae serotype 18C capsular antigen d Streptococc No Notes: Addy liliana us 01-16 Shake well l pneumoniae 14:00: prior to Her bhagat serotype 1 use (Same capsular as: antigen Prevnar diphtheria 13) [id number] protein conjugate vaccine / Streptococc us pneumoniae serotype 14 capsular antigen diphtheria [id number] protein conjugate vaccine / Streptococc us pneumoniae serotype 18C capsular antigen d Nitroglycer No Notes: Addy liliana in 01-15 (Same l 16:33: as:Nitroqu Higinio 00 ick, Nitrostat) "Do Not Crush" Sublingual tablet Sodium No 750 mL, Memoria Chloride 01-15 Rate: 75 l 0.9% IV 750 16:33: ml/hr, Herm carol mL 00 Infuse over: 10 hr, Route: IV, Dosing Weight 80 kg, Total Volume: 750, Start date: 01/15/18 11:33:00 CDT, Duration: 10 hr, Stop date: 01/15/18 21:32:00 CDT, 1.97, m2 Sodium No 250 mL, Memoria Chloride 01-15 250 ml/hr, l 0.9% 16:33: Infuse Higinio (Bolus) IV 00 Over: 1 hr, Route: IV, 250, Drug form: INJ, ONCE, Dosing Weight 80 kg, Start date: 01/15/18 11:33:00 CDT, Stop date: 01/15/18 11:33:00 CDT Nitroglycer No Notes: Addy liliana in 01-15 (Same l 16:33: as:Nitroqu [place] 00 ick, Nitrostat) "Do Not Crush" Sublingual tablet Sodium No 750 mL, Memoria Chloride 01-15 Rate: 75 l 0.9% IV 750 16:33: ml/hr, Herm carol mL 00 Infuse over: 10 hr, Route: IV, Dosing Weight 80 kg, Total Volume: 750, Start date: 01/15/18 11:33:00 CDT, Duration: 10 hr, Stop date: 01/15/18 21:32:00 CDT, 1.97, m2 Sodium No 250 mL, Memoria Chloride 01-15 250 ml/hr, l 0.9% 16:33: Infuse [place] (Bolus) IV 00 Over: 1 hr, Route: IV, 250, Drug form: INJ, ONCE, Dosing Weight 80 kg, Start date: 01/15/18 11:33:00 CDT, Stop date: 01/15/18 11:33:00 CDT ceFAZolin + No Notes: Addy liliana sterile 3-14 (Same As: l water 20 mL 04:00: Ancef, Herm carol 00 Kefzol) MEDICATION WASTE Product Size: 1000 mg Product Wasted: ___ mg ceFAZolin + 2017- No Notes: Addy liliana sterile 3-14 (Same As: l water 20 mL 04:00: Ancef, Herm carol 00 Kefzol) MEDICATION WASTE Product Size: 1000 mg Product Wasted: ___ mg bupivacaine No Notes: Addy liliana liposome 3-14 (Same as: l 03:00: Exparel) [place] 00 NOT FOR IV use Postoperat maite analgesia: Infiltrati on (local): Dose is based on surgical site and volume required to cover the area (in general, the maximum total dose is 266 mg). Bunionecto my: 7 mL into the tissues surroundin g the osteotomy and 1 mL into the subcutaneo us tissue of the surgical site (total dose = 8 mL [106 mg]) Hemorrhoid ectomy: 30 mL (20 mL vial diluted with 10 mL NS) divided and administer ed as 6 injections of 5 mL each (total dose = 30 mL [266 mg]) bupivacaine 2018-0 No Notes: Addy liliana liposome 3-14 (Same as: l 03:00: Exparel) NOT FOR IV use Postoperat maite analgesia: Infiltrati on (local): Dose is based on surgical site and volume required to cover the area (in general, the maximum total dose is 266 mg). Bunionecto my: 7 mL into the tissues surroundin g the osteotomy and 1 mL into the subcutaneo us tissue of the surgical site (total dose = 8 mL [106 mg]) Hemorrhoid ectomy: 30 mL (20 mL vial diluted with 10 mL NS) divided and administer ed as 6 injections of 5 mL each (total dose = 30 mL [266 mg]) multivitami 2018-0 Yes 1 tab, PO, Memoria n 3-08 Daily l 19:00: Lisinopril 2018-0 Yes 5 mg, PO, Me moria 3-08 Daily l 19:00: multivitami 2018-0 Yes 1 tab, PO, Memoria n 3-08 Daily l 19:00: Lisinopril 2018-0 Yes 5 mg, PO, Me moria 3-08 Daily l 19:00: lisinopril 2017-0 No 5 mg = 1 Mem oria 5 mg oral 3-02 tab, PO, l tablet 15:55: Daily, 0 Refill(s) lisinopril 2018-0 No 5 mg = 1 Mem oria 5 mg oral 3-02 tab, PO, l tablet 15:55: Daily, 0 Refill(s) Depo-Medrol 2018-0 No 40 mg, Addy liliana 2-23 Route: l 18:19: intra-BLAKE CULAR, Drug form: SUSP, ONCE, Dosing Weight 78.182, kg, Start date: 12/15/17 12:19:00 [employer], Stop date: 12/15/17 12:19:00 [employer] Lidocaine 2018-0 No 10 mL, Memori a Hydrochlori - Route: l de 10 MG/ML 18:19: SUB-Q, Herm carol Injectable 00 Dosing Solution Weight 78.182, kg, ONCE, Start date: 12/15/17 12:19:00 [employer], Stop date: 12/15/17 12:19:00 [employer] Bupivacaine 2018-0 No 4 mL, Memor ia Hydrochlori 12-15 Route: l de 2.5 18:19: intra-BLAKE Sydnie nn MG/ML 00 CULAR, Injectable Dosing Solution Weight 78.182, kg, ONCE, (Preservat maite Free), Start date: 12/15/17 12:19:00 [employer], Stop date: 12/15/17 12:19:00 [employer] Depo-Medrol 2018-0 No 40 mg, Addy liliana 12-15 Route: l 18:19: intra-BLAKE [place] 00 CULAR, Drug form: SUSP, ONCE, Dosing Weight 78.182, kg, Start date: 12/15/17 12:19:00 [employer], Stop date: 12/15/17 12:19:00 [employer] Lidocaine 2018-0 No 10 mL, Memori a Hydrochlori - Route: l de 10 MG/ML 18:19: SUB-Q, Herm carol Injectable 00 Dosing Solution Weight 78.182, kg, ONCE, Start date: 12/15/17 12:19:00 [employer], Stop date: 12/15/17 12:19:00 [employer] Bupivacaine 2018-0 No 4 mL, Memor ia Hydrochlori - Route: l de 2.5 18:19: intra-BLAKE Sydnie nn MG/ML 00 CULAR, Injectable Dosing Solution Weight 78.182, kg, ONCE, (Preservat maite Free), Start date: 12/15/17 12:19:00 [employer], Stop date: 12/15/17 12:19:00 [employer] Excedrin 2018-0 No 2 tab, PO, Mem oria 2-06 Q6H, 0 l 15:06: Refill(s) Higinio 00 Ranitidine 2018-0 Yes 150 mg = 1 M emoria 150 MG Oral 2-06 cap, PO, l Capsule 15:06: Daily, PRN Herm carol 00 Allergies, 0 Refill(s) gabapentin Yes 300 mg = 1 M emoria 300 MG Oral 2-06 cap, PO, l Capsule 15:06: TID, 0 [place] Refill(s) Acetaminoph Yes 1 tab, PO, Memoria en 325 MG / 2-06 Q6H, 0 l Hydrocodone 15:06: Refill(s) H ermann Bitartrate 00 10 MG Oral Tablet Ocuvite Yes 1 tab, PO, Addy liliana 2-06 Daily, 0 l 15:06: Refill(s) [place] etodolac No 400 mg = 1 Mem oria 400 mg oral 2-06 tab, PO, l tablet 15:06: BID, 0 [place] Refill(s) simvastatin Yes 20 mg = 1 M emoria 20 mg oral 2-06 tab, PO, l tablet 15:06: Bedtime, 0 Sydnie nn Refill(s) lisinopril No 10 mg = 1 Me moria 10 mg oral 2-06 tab, PO, l tablet 15:06: Daily, 0 Higinio Refill(s) Promethazin No 25 mg = 1 M emoria e 2-06 tab, PO, l Hydrochlori 15:06: Q6H, 0 Herm carol de 25 MG 00 Refill(s) Oral Tablet Excedrin No 2 tab, PO, Mem oria 2-06 Q6H, 0 l 15:06: Refill(s) [place] 00 Ranitidine Yes 150 mg = 1 M emoria 150 MG Oral 2-06 cap, PO, l Capsule 15:06: Daily, PRN Herm carol 00 Allergies, 0 Refill(s) gabapentin Yes 300 mg = 1 M emoria 300 MG Oral 2-06 cap, PO, l Capsule 15:06: TID, 0 [place] 00 Refill(s) Acetaminoph Yes 1 tab, PO, Memoria en 325 MG / 2-06 Q6H, 0 l Hydrocodone 15:06: Refill(s) H ermann Bitartrate 00 10 MG Oral Tablet Ocuvite Yes 1 tab, PO, Addy liliana 2-06 Daily, 0 l 15:06: Refill(s) [place] 00 etodolac No 400 mg = 1 Mem oria 400 mg oral 2-06 tab, PO, l tablet 15:06: BID, 0 [place] 00 Refill(s) simvastatin Yes 20 mg = 1 M emoria 20 mg oral 2-06 tab, PO, l tablet 15:06: Bedtime, 0 [place] nn 00 Refill(s) lisinopril No 10 mg = 1 Me moria 10 mg oral 2-06 tab, PO, l tablet 15:06: Daily, 0 [place] 00 Refill(s) Promethazin No 25 mg = 1 M emoria e 2-06 tab, PO, l Hydrochlori 15:06: Q6H, 0 Herm carol de 25 MG 00 Refill(s) Oral Tablet celecoxib No 100 mg = 1 Me moria 100 MG Oral 2-06 cap, PO, l Capsule 14:55: BID, # 60 Sydnie nn [Celebrex] 00 cap, 1 Refill(s), Pharmacy: [facility] celecoxib No 100 mg = 1 Me moria 100 MG Oral 2-06 cap, PO, l Capsule 14:55: BID, # 60 Sydnie nn [Celebrex] 00 cap, 1 Refill(s), Pharmacy: [facility] HYDROcodone 2016-10 Yes 1{tbl} Take 1 Un dylon -acetaminop 0-24 tablet by ity of hen 10-325 00:00: mouth [place] mg tablet 00 daily. [facility] HYDROcodone 2016-10 Yes 1{tbl} Take 1 Un dylon -acetaminop 0-24 tablet by ity of hen 10-325 00:00: mouth [place] mg tablet 00 daily. [facility] HYDROcodone 2016-10 Yes 1{tbl} Take 1 Un dylon -acetaminop 0-24 tablet by ity of hen 10-325 00:00: mouth [place] mg tablet 00 daily. [facility] HYDROcodone 2016-10 Yes 1{tbl} Take 1 Un dylon -acetaminop 0-24 tablet by ity of hen 10-325 00:00: mouth [place] mg tablet 00 daily. [facility] HYDROcodone 2016-10 Yes 1{tbl} Take 1 Un dylon -acetaminop 0-24 tablet by ity of hen 10-325 00:00: mouth [place] mg tablet 00 daily. [facility] HYDROcodone 2016-10 Yes 1{tbl} Take 1 Un dylon -acetaminop 0-24 tablet by ity of hen 10-325 00:00: mouth [place] mg tablet 00 daily. [facility] HYDROcodone 2016-10 Yes 1{tbl} Take 1 Un dylon -acetaminop 0-24 tablet by ity of hen 10-325 00:00: mouth [place] mg tablet 00 daily. [facility] HYDROcodone 2016-10 Yes 1{tbl} Take 1 Un dylon -acetaminop 0-24 tablet by ity of hen 10-325 00:00: mouth [place] mg tablet 00 daily. [facility] HYDROcodone 2016-10 Yes 1{tbl} Take 1 Un dylon -acetaminop 0-24 tablet by ity of hen 10-325 00:00: mouth [place] mg tablet 00 daily. [facility] HYDROcodone 2016-10 Yes 1{tbl} Take 1 Un dylon -acetaminop 0-24 tablet by ity of hen 10-325 00:00: mouth [place] mg tablet 00 daily. [facility] HYDROcodone 2016-10 Yes 1{tbl} Take 1 Un dylon -acetaminop 0-24 tablet by ity of hen 10-325 00:00: mouth [place] mg tablet 00 daily. [facility] HYDROcodone 2016-10 Yes 1{tbl} Take 1 Un dylon -acetaminop 0-24 tablet by ity of hen 10-325 00:00: mouth [place] mg tablet 00 daily. [facility] HYDROcodone 2016-10 Yes 1{tbl} Take 1 Un dylon -acetaminop 0-24 tablet by ity of hen 10-325 00:00: mouth [place] mg tablet 00 daily. [facility] HYDROcodone 2016-10 Yes 1{tbl} Take 1 Un dylon -acetaminop 0-24 tablet by ity of hen 10-325 00:00: mouth [place] mg tablet 00 daily. [facility] HYDROcodone 2016-10 Yes 1{tbl} Take 1 Un dylon -acetaminop 0-24 tablet by ity of hen 10-325 00:00: mouth [place] mg tablet 00 daily. [facility] HYDROcodone 2016-10 Yes 1{tbl} Take 1 Un dylon -acetaminop 0-24 tablet by ity of hen 10-325 00:00: mouth [place] mg tablet 00 daily. [facility] HYDROcodone 2016-10 Yes 1{tbl} Take 1 Un dylon -acetaminop 0-24 tablet by ity of hen 10-325 00:00: mouth [place] mg tablet 00 daily. [facility] HYDROcodone 2016-10 Yes 1{tbl} Take 1 Un dylon -acetaminop 0-24 tablet by ity of hen 10-325 00:00: mouth [place] mg tablet 00 daily. [facility] HYDROcodone 2016-10 Yes 1{tbl} Take 1 Un dylon -acetaminop 0-24 tablet by ity of hen 10-325 00:00: mouth [place] mg tablet 00 daily. [facility] Immunizations Ordered Filled Immunization Date Status Comments [facility] e Immunization Name Name Td 2022-08-09 Completed University of 00:00:00 [facility] Td 2022-08-09 Completed University of 00:00:00 [facility] Td 2022-08-09 Completed University of 00:00:00 [facility] Td 2022-08-09 Completed University of 00:00:00 [facility] Td 2022-08-09 Completed University of 00:00:00 [facility] Td 2022-08-09 Completed University of 00:00:00 [facility] Td 2022-08-09 Completed University of 00:00:00 [facility] Td 2022-08-09 Completed University of 00:00:00 [facility] Td 2022-08-09 Completed University of 00:00:00 [facility] Influenza Virus 2022-07-31 Completed Universit y of Vaccine,quad 00:00:00 [place] [facility] Free [place] 65+ Influenza High Dose 2022-07-31 Completed Unive rsity of 00:00:00 [facility] Influenza Virus 2022-07-31 Completed Universit y of Vaccine,quad 00:00:00 [place] [facility] Free [place] 65+ Influenza High Dose 2022-07-31 Completed Unive rsity of 00:00:00 [facility] Influenza Virus 2022-07-31 Completed Universit y of Vaccine,quad 00:00:00 [place] [facility],preserve Free [place] 65+ Influenza High Dose 2022-07-31 Completed Unive rsity of 00:00:00 [place] [facility] Influenza Virus 2022-07-31 Completed Universit y of Vaccine,quad 00:00:00 [place] [facility],preserve Free [facility] 65+ Influenza High Dose 2022-07-31 Completed Unive rsity of 00:00:00 [place] [facility] Influenza Virus 2022-07-31 Completed Universit y of Vaccine,quad 00:00:00 [place] [facility],preserve Free [facility] 65+ Influenza High Dose 2022-07-31 Completed Unive rsity of 00:00:00 [place] [facility] Influenza Virus 2022-07-31 Completed Universit y of Vaccine,quad 00:00:00 [place] [facility],preserve Free [facility] 65+ Influenza High Dose 2022-07-31 Completed Unive rsity of 00:00:00 [place] [facility] Influenza Virus 2022-07-31 Completed Universit y of Vaccine,quad 00:00:00 [place] [facility],preserve Free [facility] 65+ Influenza High Dose 2022-07-31 Completed Unive rsity of 00:00:00 [place] [facility] Influenza Virus 2022-07-31 Completed Universit y of Vaccine,quad 00:00:00 [place] [facility],preserve Free [facility] 65+ Influenza High Dose 2022-07-31 Completed Unive rsity of 00:00:00 [place] [facility] Influenza Virus 2022-07-31 Completed Universit y of Vaccine,quad 00:00:00 [place] [facility],preserve Free [facility] 65+ Influenza High Dose 2022-07-31 Completed Unive rsity of 00:00:00 [facility] Influenza High Dose 2020-06-26 Completed Unive rsity of Quad 00:00:00 [place] [facility] Influenza High Dose 2020-06-26 Completed Unive rsity of Quad 00:00:00 [place] [facility] Influenza High Dose 2020-06-26 Completed Unive rsity of Quad 00:00:00 [place] [facility] Influenza High Dose 2020-06-26 Completed Unive rsity of Quad 00:00:00 [place] [facility] Influenza High Dose 2020-06-26 Completed Unive rsity of Quad 00:00:00 [place] [facility] Influenza High Dose 2020-06-26 Completed Unive rsity of Quad 00:00:00 [place] [facility] Influenza High Dose 2020-06-26 Completed Unive rsity of Quad 00:00:00 [facility] Influenza High Dose 2020-06-26 Completed Unive rsity of Quad 00:00:00 [facility] Influenza High Dose 2020-06-26 Completed Unive rsity of Quad 00:00:00 [facility] Influenza High Dose 2020-06-26 Completed Unive rsity of Quad 00:00:00 [facility] Influenza High Dose 2020-06-26 Completed Unive rsity of Quad 00:00:00 [facility] Influenza High Dose 2020-06-26 Completed Unive rsity of Quad 00:00:00 [facility] Influenza High Dose 2020-06-26 Completed Unive rsity of Quad 00:00:00 [facility] Influenza High Dose 2020-06-26 Completed Unive rsity of Quad 00:00:00 [facility] Influenza High Dose 2020-06-26 Completed Unive rsity of Quad 00:00:00 [facility] Influenza High Dose 2020-06-26 Completed Unive rsity of Quad 00:00:00 [facility] Influenza High Dose 2020-06-26 Completed Unive rsity of Quad 00:00:00 [facility] Influenza High Dose 2020-06-26 Completed Unive rsity of Quad 00:00:00 [facility] Influenza High Dose 2020-06-26 Completed Unive rsity of Quad 00:00:00 [facility] Influenza High Dose 2019-08-21 Completed Unive rsity of 00:00:00 [facility] Influenza High Dose 2019-08-21 Completed Unive rsity of 00:00:00 [facility] Influenza High Dose 2019-08-21 Completed Unive rsity of 00:00:00 [facility] Influenza High Dose 2019-08-21 Completed Unive rsity of 00:00:00 [facility] Influenza High Dose 2019-08-21 Completed Unive rsity of 00:00:00 [facility] Influenza High Dose 2019-08-21 Completed Unive rsity of 00:00:00 [facility] Influenza High Dose 2019-08-21 Completed Unive rsity of 00:00:00 [facility] Influenza High Dose 2019-08-21 Completed Unive rsity of 00:00:00 [facility] Influenza High Dose 2019-08-21 Completed Unive rsity of 00:00:00 [facility] Influenza High Dose 2019-08-21 Completed Unive rsity of 00:00:00 [facility] Influenza High Dose 2019-08-21 Completed Unive rsity of 00:00:00 [facility] Branch Influenza High Dose 2019-08-21 Completed Unive rsity of 00:00:00 [facility] Influenza High Dose 2019-08-21 Completed Unive rsity of 00:00:00 [facility] Influenza High Dose 2019-08-21 Completed Unive rsity of 00:00:00 [facility] Influenza High Dose 2019-08-21 Completed Unive rsity of 00:00:00 [facility] Influenza High Dose 2019-08-21 Completed Unive rsity of 00:00:00 [facility] Influenza High Dose 2019-08-21 Completed Unive rsity of 00:00:00 [facility] Influenza High Dose 2019-08-21 Completed Unive rsity of 00:00:00 [facility] Influenza High Dose 2019-08-21 Completed Unive rsity of 00:00:00 [facility] pneumococcal 2018-01-19 Completed [facility] Her bhagat 13-valent vaccine 14:37:00 pneumococcal 2018-01-19 Completed [facility] Her bhagat 13-valent vaccine 14:37:00 Vital Signs Vital Name Observation Time Observation Value Comments Source Systolic blood 2022-08-09 18:10:00 132 mm[Hg] Univer sity of pressure [facility] Diastolic blood 2022-08-09 18:10:00 69 mm[Hg] Unive rsity of pressure [facility] Heart rate 2022-08-09 18:10:00 63 /min Universi ty of [facility] Body temperature 2022-08-09 18:10:00 37 Yessy Univ ersity of [facility] Respiratory rate 2022-08-09 18:10:00 18 /min Univ ersity of [place] [facility] Oxygen saturation in 2022-08-09 18:10:00 98 /min University Arterial blood by [facility] Pulse oximetry Branch Systolic blood 2022-08-09 16:31:34 126 mm[Hg] Univer sity of pressure [facility] Diastolic blood 2022-08-09 16:31:34 85 mm[Hg] Unive rsity of pressure [facility] Heart rate 2022-08-09 16:31:34 61 /min Universi ty of [facility] Respiratory rate 2022-08-09 16:31:34 18 /min [facility] Oxygen saturation in 2022-08-09 16:31:34 97 /min University of Arterial blood by [facility] Pulse oximetry Branch Body temperature 2022-08-09 13:41:00 36.44 Yessy [facility] Body height 2022-08-09 13:41:00 180.3 cm Universi [facility] Body weight 2022-08-09 13:41:00 74.844 kg [facility] BMI 2022-08-09 13:41:00 23.01 kg/m2 [facility] Height 2018-09-20 16:11:00 172.72 cm [facility] BMI Calculated 2018-09-20 16:11:00 [facility] al [place] Weight 2018-09-20 16:11:00 [facility] [place] Heart Rate 2018-09-20 16:11:00 [facility] [place] Systolic (mm Hg) 2018-09-20 16:11:00 Addy rial [place] Diastolic (mm Hg) 2018-09-20 16:11:00 Mem orial [place] Height 2018-07-23 20:48:00 177.8 cm [facility] BMI Calculated 2018-07-23 20:48:00 Memori al [place] Weight 2018-07-23 20:48:00 [facility] [place] Temperature Oral (F) 2018-07-23 20:48:00 98.3 F [facility] Heart Rate 2018-07-23 20:48:00 [facility] [place] Systolic (mm Hg) 2018-07-23 20:48:00 Addy rial [place] Diastolic (mm Hg) 2018-07-23 20:48:00 Mem orial [place] Weight 2018-05-10 16:27:00 [facility] [place] Height 2018-05-10 16:27:00 177.8 cm [facility] BMI Calculated 2018-05-10 16:27:00 Memori al [place] Heart Rate 2018-05-10 16:27:00 [facility] [place] Temperature Oral (F) 2018-05-10 16:27:00 97.8 F [facility] [place] Systolic (mm Hg) 2018-05-10 16:27:00 Addy rial [place] Diastolic (mm Hg) 2018-05-10 16:27:00 Mem orial [place] Temperature Oral (F) 2018-04-05 20:20:00 98.2 F [facility] Heart Rate 2018-04-05 20:20:00 [facility] [place] BMI Calculated 2018-04-05 20:20:00 Memori al [place] Weight 2018-04-05 20:20:00 [facility] [place] Height 2018-04-05 20:20:00 177.8 cm [facility] [place] Systolic (mm Hg) 2018-04-05 20:20:00 Addy rial [place] Diastolic (mm Hg) 2018-04-05 20:20:00 Mem orial [place] Weight 2018-03-15 18:53:00 [facility] [place] BMI Calculated 2018-03-15 18:53:00 Memori al [place] Systolic (mm Hg) 2018-03-15 18:53:00 Addy rial [place] Diastolic (mm Hg) 2018-03-15 18:53:00 Mem orial [place] Heart Rate 2018-03-15 18:53:00 [facility] [place] Height 2018-03-15 18:53:00 172.72 cm [facility] [place] Weight 2018-03-06 18:11:00 [facility] [place] BMI Calculated 2018-03-06 18:11:00 Memori al [place] Height 2018-03-06 18:11:00 177.8 cm [facility] [place] Temperature Oral (F) 2018-03-06 18:11:00 98.2 F [facility] Heart Rate 2018-03-06 18:11:00 [facility] [place] Systolic (mm Hg) 2018-03-06 18:11:00 Addy rial [place] Diastolic (mm Hg) 2018-03-06 18:11:00 Mem orial [place] BMI Calculated 2018-02-06 16:20:00 Memori al [place] Weight 2018-02-06 16:20:00 [facility] [place] Height 2018-02-06 16:20:00 175.26 cm [facility] [place] Temperature Oral (F) 2018-02-06 16:20:00 98.1 F [facility] [place] Systolic (mm Hg) 2018-02-06 16:20:00 Addy rial [place] Diastolic (mm Hg) 2018-02-06 16:20:00 Mem orial [place] Heart Rate 2018-02-06 16:20:00 [facility] [place] Heart Rate 2018-01-20 12:36:00 [facility] [place] Respitory Rate 2018-01-20 12:36:00 Memori al [place] Temperature Oral (F) 2018-01-20 12:36:00 99.0 F [facility] [place] Systolic (mm Hg) 2018-01-20 12:36:00 Addy rial [place] Diastolic (mm Hg) 2018-01-20 12:36:00 Mem orial [place] Systolic (mm Hg) 2018-01-20 09:40:00 Addy rial [place] Diastolic (mm Hg) 2018-01-20 09:40:00 Mem orial [place] Respitory Rate 2018-01-20 09:40:00 [facility]ori [facility] [place] Heart Rate 2018-01-20 09:40:00 [facility] [place] Temperature Oral (F) 2018-01-20 09:40:00 97.9 F [facility] [place] Heart Rate 2018-01-20 04:44:00 [facility] [place] Temperature Oral (F) 2018-01-20 04:44:00 98.1 F [facility] Systolic (mm Hg) 2018-01-20 04:44:00 Addy rial [place] Diastolic (mm Hg) 2018-01-20 04:44:00 Mem orial [place] Respitory Rate 2018-01-20 04:44:00 [facility] [place] Weight 2018-01-18 07:38:00 [facility] [place] Weight 2018-01-17 17:08:00 [facility] [place] Height 2018-01-17 17:08:00 172.72 cm [facility] BMI Calculated 2018-01-17 17:08:00 [facility]ori [facility] [place] Systolic (mm Hg) 2018-01-15 18:30:00 Addy rial [place] Diastolic (mm Hg) 2018-01-15 18:30:00 Mem orial [place] Systolic (mm Hg) 2018-01-15 18:15:00 Adyd rial [place] Diastolic (mm Hg) 2018-01-15 18:15:00 Mem orial [place] Systolic (mm Hg) 2018-01-15 18:00:00 Addy rial [place] Diastolic (mm Hg) 2018-01-15 18:00:00 Mem orial [place] BMI Calculated 2018-01-15 14:18:00 [facility] [place] Weight 2018-01-15 14:18:00 [facility] [place] Height 2018-01-15 14:18:00 172.72 cm [facility] [place] Temperature Oral (F) 2018-01-15 14:15:00 98.8 F [facility] [place] Heart Rate 2017-12-29 17:32:00 [facility] [place] Systolic (mm Hg) 2017-12-29 17:32:00 Addy rial [place] Diastolic (mm Hg) 2017-12-29 17:32:00 Mem orial [place] Weight 2017-12-29 17:00:00 [facility] [place] BMI Calculated 2017-12-29 17:00:00 [facility] [place] Height 2017-12-29 17:00:00 172.72 cm [facility] [place] BMI Calculated 2017-12-28 21:00:00 [facility] [place] Weight 2017-12-28 21:00:00 [facility] [place] Height 2017-12-28 21:00:00 172.72 cm [facility] [place] Weight 2017-12-28 20:07:00 [facility] [place] Height 2017-12-28 20:07:00 172.72 cm [facility] BMI Calculated 2017-12-28 20:07:00 [facility] [place] Heart Rate 2017-12-28 20:07:00 [facility] [place] Systolic (mm Hg) 2017-12-28 20:07:00 Addy rial [place] Diastolic (mm Hg) 2017-12-28 20:07:00 Mem orial [place] BMI Calculated 2017-12-28 20:06:00 [facility] al [place] Weight 2017-12-28 20:06:00 [facility] [place] Height 2017-12-28 20:06:00 172.72 cm [facility] [place] Height 2017-12-22 15:55:00 173.99 cm [facility] Weight 2017-12-22 15:55:00 [facility] [place] BMI Calculated 2017-12-22 15:55:00 [facility] [place] Temperature Oral (F) 2017-12-22 15:55:00 97.2 F [facility] [place] Heart Rate 2017-12-22 15:55:00 [facility] Respitory Rate 2017-12-22 15:55:00 [facility]ori [facility] [place] Systolic (mm Hg) 2017-12-22 15:55:00 Addy rial [place] Diastolic (mm Hg) 2017-12-22 15:55:00 Mem orial [place] Height 2017-12-14 19:53:00 180.34 cm [facility] BMI Calculated 2017-12-14 19:53:00 Memori [facility] [place] Weight 2017-12-14 19:53:00 [facility] [place] Temperature Oral (F) 2017-12-14 19:53:00 97.8 F [facility] [place] Heart Rate 2017-12-14 19:53:00 [facility] Systolic (mm Hg) 2017-12-14 19:53:00 Addy rial [place] Diastolic (mm Hg) 2017-12-14 19:53:00 Mem orial [place] BMI Calculated 2017-11-28 14:57:00 [facility]ori [facility] [place] Weight 2017-11-28 14:57:00 [facility] [place] Height 2017-11-28 14:57:00 180.34 cm [facility] Temperature Oral (F) 2017-11-28 14:57:00 98.4 F [facility] [place] Heart Rate 2017-11-28 14:57:00 [facility] Systolic (mm Hg) 2017-11-28 14:57:00 Addy rial [place] Diastolic (mm Hg) 2017-11-28 14:57:00 Mem orial [place] Procedures Procedure Date / Time Performing Clinician Source Performed XR FINGERS 2 VW LEFT 2022-08-09 15:04:44 Storm Campa [facility] CONSENT/REFUSAL FOR 2022-08-09 13:36:53 Doctor Unassigned, No Un [facility] DIAGNOSIS AND TREATMENT Name [facility] Cervical laminoplasty 2018-01-17 05:00:00 Rolando al Higinio with decompression of spinal cord<sup>1</sup> Cardiac catheterization, 2018-01-15 05:00:00 Mem orial [place] left heart Injection(s), diagnostic 2017-12-15 18:19:00 Mem orial [place] or therapeutic agent, paravertebral facet (zygapophyseal) joint (or nerves innervating that joint) with image guidance (fluoroscopy or CT), lumbar or sacral; second level (List separately in addition to code for primary procedure) Injection(s), diagnostic 2017-12-15 18:19:00 Mem orial [place] or therapeutic agent, paravertebral facet (zygapophyseal) joint (or nerves innervating that joint) with image guidance (fluoroscopy or CT), lumbar or sacral; single level Injection(s), diagnostic 2017-12-15 18:19:00 Mem orial [place] or therapeutic agent, paravertebral facet (zygapophyseal) joint (or nerves innervating that joint) with image guidance (fluoroscopy or CT), lumbar or sacral; third and any additional level(s) (List separately in addition to code f Back fusion 2009-10-23 06:00:00 [facility] Her bhagat Epidural steroid Tram Lalit n injection Tonsillectomy Tram Sylvester Encounters Start End Encounter Admission Attending Care Care Encounter Source Date/Time Date/Time Type Type Clinicians Facility Department ID 2022-09-24 2022-09-[address] [facility] 1.2.840.114 [id number] Univers 00:00:00 00:00:00 [facility] [id number] it y of [place] [id number] Ry as JAME?BLEA [id number] [address] OFFICE [facility] 2022-09-21 2022-09-[address] [facility] 1.2.840.114 [id number] Univers 00:00:00 00:00:00 [facility] [id number] it y of [place] [id number] Ry as JAME?BLEA [id number] [address] OFFICE [facility] 2022-09-21 2022-09-[address] [facility] [id number] Univers 00:00:00 00:00:00 [facility] [id number] it y of [place] [id number] Ry as JAME?BLEA [id number] [address] OFFICE [facility] 2022-09-13 2022-09-[address] [facility] [id number] Univers 00:00:00 00:00:00 [facility] [id number] it y of [place] [id number] Ry as JAME?BLEA [id number] [address] OFFICE [facility] 2022-09-07 2022-09-07 Outpatient R ROYA [facility] [id number] Univers 10:45:00 10:45:00 [facility] 2022-08-24 2022-08-24 Outpatient Leigha HENDRIX [facility] [id number] Univers 11:30:00 11:30:00 [facility] 2022-08-24 2022-08-24 Outpatient Leigha HENDRIX [facility] [id number] Univers 11:30:00 11:30:00 [facility] 2022-08-24 2022-08-24 Outpatient Leigha HENDRIX [facility] [id number] Univers 11:30:00 11:30:00 [facility] 2022-08-23 2022-08-23 [facility] [id number] [id number] Univers 00:00:00 00:00:00 [facility] [id number] it y [facility] [place] [id number] Ry as JAME?BLEA [phone] [address] MEDICAL OFFICE BUILDING 2022-08-15 2022-08-15 Telephone Gabe, UNIVERSIT [id number] Univers 00:00:00 00:00:00 [facility] [id number] [place]y [id number] [id number] [facility] [address] [place] 2022-08-12 2022-08-12 Telephone [facility] [id number] Univers 00:00:00 00:00:00 [facility] [id number] [id number] [id number] [facility] [address] 2022-08-09 2022-08-09 Emergency Brani, TRAUMA [id number] Univers 13:22:00 16:58:00 [facility] [id number] [id number] [id number] [facility] [address] 2022-08-09 2022-08-09 Emergency X Storm CAMPA [facility] ERT [id number] Univers 08:41:00 12:09:00 ity of [facility] 2022-08-09 2022-08-09 Emergency X KATHERYN, Storm [facility] ERT [id number] Univers 08:41:00 12:09:00 ity of [facility] 2022-08-09 2022-08-09 Emergency Storm Campa [facility] [id number] Univers 08:41:00 12:09:00 Breanne [place] [id number] i ty [id number] [id number] [address] 2022-07-01 2022-07-[address] [facility] 1.2.840.114 [id number] Univers 00:00:00 00:00:00 [facility] [id number] it y of [place] [id number] Ry as JAME?BLEA [id number] [address] OFFICE [facility] 2022-05-27 2022-05-[address] [facility] 1.2.840.114 [id number] Univers 00:00:00 00:00:00 [facility] [id number] it y of [place] [id number] Ry as JAME?BLEA [id number] [address] OFFICE [facility] 2022-05-27 2022-05-27 [facility] 1.2.840.114 [id number] Univers 00:00:00 00:00:00 [facility] [id number] it y of [place] [id number] Ry as JAME?BLEA [phone] [address] OFFICE [facility] 2022-05-23 2022-05-[address] [facility] 1.2.840.114 [id number] Univers 00:00:00 00:00:00 [facility] HEALTH 350.1.13.10 it y of [place] 4.2.7.2.686 Ry as JAME?BLEA [phone] [address] MEDICAL OFFICE [facility] 2022-04-19 2022-04-[address] [facility] 1.2.840.114 [id number] Univers 00:00:00 00:00:00 [facility] 350.1.13.10 it y of [place] 4.2.7.2.686 Ry as JAME?BLEA [phone] [address] 2022-03-17 2022-03-[address] [facility] 1.2.840.114 [id number] Univers 00:00:00 00:00:00 [facility] 350.1.13.10 it y of [place] 4.2.7.2.686 Ry as JAME?BLEA [id number] [address] 2022-03-02 2022-03-02 Outpatient Leigha [facility] [id number] [facility] 08:15:00 08:15:00 [facility] 2022-02-28 2022-02-28 Telephone [facility] 1.2.007.437 [id number] [facility] 00:00:00 00:00:00 [facility] 350.1.13.10 it y of [place] 4.2.7.2.686 Ry as JAME?BLEA [phone] [address] 2022-02-25 2022-02-25 Guitar Instructor Lab, Ang - [facility] 1.2.840.1 14 [id number] Univers 08:15:00 08:30:00 Visit James Galvan [facility] 350.1.13 .10 ity of [place] 4.2.7.2.686 Ry as JAME?BLEA [phone] [facility] JEFE 353 [facility] 2022-02-25 2022-02-25 Outpatient Leigha [facility] [id number] Univers 08:15:00 08:22:12 JAMES dalal [facility] 2022-02-25 2022-02-25 Outpatient Leigha [facility] [id number] Univers 08:15:00 08:15:00 JAMES dalla [facility] 2022-02-25 2022-02-25 [facility]phone [facility] 1.2.909.740 [id number] Univers 00:00:00 00:00:00 Marilee HEALTH 350.1.13.10 it y of [place] 4.2.7.2.686 Ry as JAME?BLEA [phone] [place] MAYBERRY [address] [place] MEDICAL OFFICE [facility] 2022-02-23 2022-02-23 Outpatient R [facility] [id number] Univers 07:45:00 07:45:00 ity [facility] 2022-02-23 2022-02-23 Outpatient R [facility] [id number] Univers 07:45:00 07:45:00 ity [facility] 2022-02-22 2022-02-22 Outpatient R [facility] [id number] Univers 16:00:00 [facility]22-02-22 Telephone [facility] 1.2.963.101 [id number] Univers 00:00:00 00:00:00 Marilee DUNN 350.1.13.10 it y of [place] 4.2.7.2.686 Ry as JAME?BLEA [phone] [place] RAMIREZ 353 [facility] OFFICE [facility] 2022-02-18 2022-02-18 Outpatient [facility] [id number] Univers 11:00:00 12:09:43 MARILEE dalal [facility] 2022-02-18 2022-02-18 [facility] 1.2.840.114 [id number] Univers 11:00:00 12:09:43 Visit Marilee HEALTH 350.1.13.10 it y of [place] 4.2.7.2.686 Ry as JAME?BLEA [phone] [place] RAMIREZ [address] [place] [address] OFFICE [facility] 2022-02-18 2022-02-18 Outpatient R [facility] [id number] Univers 11:00:00 12:09:43 MARILEE [facility] 2022-02-18 2022-02-18 Orders Doctor GAMA 1.2.840.114 [id number] Univers 00:00:00 00:00:00 Only Unassigned, [place] 350.1.13.10 ity of [place] [facility] 4.2.7.2.686 Ry as [phone] [address] 2022-02-03 2022-02-03 [place] [address].2.840.114 [id number] Univers 00:00:00 00:00:00 [facility] 350.1.13.10 it y of [place] 4.2.7.2.686 Ry as JAME?BLEA [phone] [address] OFFICE [facility] 2022-01-10 2022-01-[address]114 [id number] Univers 00:00:00 00:00:00 [facility] 350.1.13.10 it y of [place] 4.2.7.2.686 Ry as JAME?BLEA [phone] [address] OFFICE [facility] 2021-11-12 2021-11-12 [facility] 1.2.840.114 [id number] Univers 00:00:00 00:00:00 [facility] 350.1.13.10 it y of [place] 4.2.7.2.686 Ry as JAME?BLEA [phone] [facility] [address] OFFICE [facility] 2021-09-23 2021-09-[address] [facility] 1.2.840.114 [id number] Univers 00:00:00 00:00:00 [facility] 350.1.13.10 it y of [place] 4.2.7.2.686 Ry as JAME?BLEA [phone] [address] 2021-08-26 2021-08-26 [place] [address].2.840.114 [id number] Univers 00:00:00 00:00:00 [facility] 350.1.13.10 it y of [place] 4.2.7.2.686 Ry as JAME?BLEA [phone] Me ernesto RAMIREZ [address] [place] [address] OFFICE BUILDING 2021-08-24 2021-08-24 [facility] 1.2.840.114 [id number] Univers 00:00:00 00:00:00 HEALTH 350.1.13.10 it y of [place] 4.2.7.2.686 Ry as PROFESSIO [phone] [address] OFFICE [facility] ONE 2021-05-14 2021-05-14 Office [facility] 1.2.840.114 [id number] Univers 10:43:50 10:58:[address] [facility] 350.1.13.10 it y of [place] 4.2.7.2.686 Ry as Professio [phone] [address] One 2021-05-14 2021-05-14 Outpatient R [facility] [id number] Univers 10:45:00 10:45:00 [facility] 2021-03-22 2021-03-[address] [facility] 1.2.840.114 [id number] Univers 00:00:00 00:00:00 [facility] Health 350.1.13.10 it y of [place] 4.2.7.2.686 Ry as Professio [phone] [address] One 2021-03-12 2021-03-12 Outpatient R [facility] [id number] Univers 15:30:00 15:30:00 [facility] 2020-12-15 2020-12-[address] [facility] 1.2.840.114 [id number] Univers 00:00:00 00:00:00 Health 350.1.13.10 it y of [place] 4.2.7.2.686 Ry as Professio [phone] [address] Office [facility] One 2020-09-25 2020-09-25 Telephone [facility] 1.2.840.114 [id number] Univers 00:00:00 00:00:00 Health 350.1.13.10 it y of [place] 4.2.7.2.686 Ry as Professio [phone] [address] Office Building [facility] 2020-07-10 2020-07-10 Outpatient R COLE [facility] [id number] Univers 08:00:00 08:00:00 ity [facility] 2020-07-03 2020-07-03 Hospital Radiology [facility] 1.2.840.114 [id number] Univers 11:17:52 23:59:00 Encounter [place] 350.1.13.10 ity of [place].2.[place] [phone] [address] 2020-07-03 2020-07-03 Hospital Radiology [facility] 1.2.840.114 [id number] Univers 11:12:52 11:16:00 Encounter [place] 350.1.13.10 ity of [place]2.[place].2.[place] [phone] [address] 2020-07-03 2020-07-03 [facility] 1.2.840.114 [id number] Univers 09:56:30 10:11:30 Visit [facility] 350.1.13.10 it y of [place] 4.2.7.2.686 Ry as Professio [phone] [address] Office [facility] 2020-07-03 2020-07-03 Outpatient R COLE [facility] [id number] Univers 10:00:00 10:00:00 ity [facility] 2020-06-19 2020-06-19 [facility] 1.2.840.114 [id number] Univers 00:00:00 00:00:[address] [facility] 350.1.13.10 it y of [place] 4.2.7.2.686 Ry as Professio [phone] [address] Office [facility] 2020-06-15 2020-06-15 [facility] [id number] Univers 16:00:00 16:00:00 ity [facility] 2020-01-13 2020-01-[address] [facility] 1.2.840.114 [id number] Univers 00:00:00 00:00:00 Health 350.1.13.10 it y of [place] 4.2.7.2.686 Ry as Professio [phone] [address] Office [facility] 2019-12-16 2019-12-16 Office [facility] 1.2.840.114 [id number] Univers 11:00:28 11:15:[address] [facility] 350.1.13.10 it y of [place] 4.2.7.2.686 Ry as Professio [phone] [address] Office [facility] 2019-12-16 2019-12-16 Outpatient R COLE [facility] [id number] Univers 11:00:00 11:00:00 [facility] 2019-12-14 2019-12-14 [facility] 1.2.840.114 [id number] Univers 00:00:00 00:00:[address] [facility] 350.1.13.10 it y of [place] 4.2.7.2.686 Ry as Professio [id number] [address] One 2019-11-14 2019-11-[address] [facility] 1.2.840.114 [id number] Univers 00:00:00 00:00:[address] [facility] 350.1.13.10 it y of [place] 4.2.7.2.686 Ry as Professio [phone] [address] Office [facility] 2019-10-11 2019-10-11 Outpatient R RADIOLOGY [facility] [id number] Univers 15:12:25 23:59:00 ity [facility] 2019-06-28 2019-06-28 [facility]phone [facility] 1.2.840.114 [id number] Univers 00:00:00 00:00:00 Health 350.1.13.10 it y of [place] 4.2.7.2.686 Ry as Professio [phone] [address] One 2019-06-18 2019-06-18 Office [facility] 1.2.840.114 [id number] [facility] 10:52:20 11:33:[address] [facility] 350.1.13.10 it y of [place] 4.2.7.2.686 Ry as Professio [phone] [address] One 2019-06-06 2019-06-06 Orders Doctor NATAN 1.2.840.114 [id number] Univers 00:00:00 00:00:00 Only Unassigned, [place] 350.1.13.10 ity [place] [facility] 4.2.7.2.686 Ry as [phone] [address] 2019-05-29 2019-05-29 Telephone [facility] 1.2.840.114 [id number] [facility] 00:00:00 00:00:00 [facility] Health 350.1.13.10 it y of [place] 4.2.7.2.686 Ry as Professio [phone] [address] One 2019-05-22 2019-05-22 [facility] 1.2.840.114 [id number] Univers 00:00:00 00:00:00 [facility] Health 350.1.13.10 it y of [place] 4.2.7.2.686 Ry as Professio [phone] [address] One 2019-05-21 2019-05-21 Refill [facility] 1.2.840.114 [id number] Univers 00:00:00 00:00:00 [facility] Health 350.1.13.10 it y of [place] 4.2.7.2.686 Ry as Professio [phone] [address] One 2019-05-21 2019-05-21 Orders Doctor NATAN 1.2.840.114 [id number] Univers 00:00:00 00:00:00 Only Unassigned, [place] 350.1.13.10 ity [place] [facility] 4.2.7.2.686 Ry as [phone] [address] 2019-05-20 2019-05-20 Office [facility] 1.2.840.114 [id number] Univers 10:54:43 11:23:13 Visit [place] [address].1.13.10 it y of [place] 4.2.7.2.686 Ry as Professio [phone] [address] 2019-05-20 2019-05-20 Telephone [facility] 1.2.840.114 [id number] Univers 00:00:00 00:00:[address] [facility] 350.1.13.10 it y of [place] 4.2.7.2.686 Ry as Professio [phone] [address] One 2018-12-24 2018-12-26 Phone nullFlavo [facility] [id number] Memoria 15:19:00 05:59:59 Message r Clinic TM 35 [facility] 2018-12-24 2018-12-26 Phone nullFlavo [facility] [id number] Memoria 15:19:00 05:59:59 Message r Clinic [facility] 35 [facility] 2018-12-24 2018-12-25 Outpatient MHMISCHER MHMISCHER [id number] 09:19:00 23:59:59 35 2018-11-01 2018-11-03 Phone nullFlavo [facility] [id number] Memoria 20:34:00 05:59:59 Message r Clinic TM 34 [facility] 2018-11-01 2018-11-03 Phone nullFlavo [facility] [id number] Memoria 20:34:00 05:59:59 Message r Clinic [facility] 34 [facility] 2018-11-01 2018-11-02 Outpatient MHMISCHER MHMISCHER [id number] 14:34:00 23:59:59 34 2018-11-02 2018-11-02 Ambulatory nullFlavo [facility] [id number] Memoria 13:00:00 13:00:00 Pre-Reg r Clinic [facility] 24 [facility] 2018-11-02 2018-11-02 Ambulatory nullFlavo [facility] [id number] Memoria 13:00:00 13:00:00 Pre-Reg r Clinic [facility] 24 [facility] 2018-11-02 2018-11-02 Outpatient MHIE MHIE [id number] Memoria 07:00:00 07:00:00 24 [facility] 2018-11-02 2018-11-02 Outpatient ScottreitajBECKIESCHDAO [id number] 07:00:00 07:00:00 Hailey Brewer 24 2018-10-29 2018-10-31 Phone nullFlavo [facility] [id number] Memoria 20:43:00 05:59:59 Message r Clinic [facility] 33 [facility] 2018-10-29 2018-10-31 Phone nullFlavo [facility] [id number] Memoria 20:43:00 05:59:59 Message r Clinic [facility] 33 [facility] 2018-10-29 2018-10-30 Outpatient MHMISCHER MHMISCHER [id number] 14:43:00 23:59:59 33 2018-10-17 2018-10-19 Phone nullFlavo [facility] [id number] Memoria 18:11:00 05:59:59 Message r Clinic [facility] 32 [facility] 2018-10-17 2018-10-19 Phone nullFlavo [facility] [id number] Memoria 18:11:00 05:59:59 Message r Clinic [facility] 32 [facility] 2018-10-17 2018-10-18 Outpatient MHMISCHER MHMISCHER [id number] 12:11:00 23:59:59 32 2018-10-08 2018-10-08 Ambulatory nullFlavo [facility] [id number] Memoria 19:45:00 19:45:00 Pre-Reg r Clinic [facility] 23 [facility] 2018-10-08 2018-10-08 Ambulatory nullFlavo [facility] [id number] Memoria 19:45:00 19:45:00 Pre-Reg r Clinic [facility] 23 [facility] 2018-10-08 2018-10-08 Outpatient MHIE MHIE [id number] Memoria 13:45:00 13:45:00 23 [facility] 2018-10-08 2018-10-08 Outpatient Natan Atkinson MHMISCHER MHMISCHER [id number] 13:45:00 13:45:00 C 23 2018-10-04 2018-10-06 Phone nullFlavo [facility] [id number] Memoria 19:17:00 05:59:59 Message r Clinic [facility] 31 [facility] 2018-10-04 2018-10-06 Phone nullFlavo [facility] [id number] Memoria 19:17:00 05:59:59 Message r Clinic TM 31 [facility] 2018-10-04 2018-10-05 Outpatient MHMISCHER MHMISCHER [id number] 13:17:00 23:59:59 31 2018-09-20 2018-09-21 Outpatient nullFlavo [facility] [id number] Memoria 15:30:00 05:59:59 r Clinic TM 22 [facility] 2018-09-20 2018-09-21 Outpatient nullFlavo [facility] [id number] Memoria 15:30:00 05:59:59 r Clinic [facility] 22 [facility] 2018-09-20 2018-09-20 Outpatient Hudson [facility] [id number] 09:30:00 23:59:59 Hailey Brewer 22 2018-09-20 2018-09-20 Outpatient MHIE MHIE [id number] Memoria 09:30:00 09:30:00 22 [facility] 2018-09-17 2018-09-19 Phone nullFlavo [facility] [id number] Memoria 22:32:00 05:59:59 Message r Clinic [facility] 30 [facility] 2018-09-17 2018-09-19 Phone nullFlavo [facility] [id number] Memoria 22:32:00 05:59:59 Message r Clinic [facility] 30 [facility] 2018-09-17 2018-09-18 Outpatient MHMISCHER MHMISCHER [id number] 16:32:00 23:59:59 30 2018-09-03 2018-09-05 Phone nullFlavo [facility] [id number] Memoria 22:13:00 05:59:59 Message r Clinic TM 29 [facility] 2018-09-03 2018-09-05 Phone nullFlavo [facility] [id number] Memoria 22:13:00 05:59:59 Message r Clinic TM 29 [facility] 2018-09-03 2018-09-04 Outpatient MHMISCHER MHMISCHER [id number] 16:13:00 23:59:59 29 2018-09-03 2018-09-03 Ambulatory nullFlavo [facility] [id number] Memoria 19:15:00 19:15:00 Pre-Reg r Clinic TM 21 [facility] 2018-09-03 2018-09-03 Ambulatory nullFlavo [facility] [id number] Memoria 19:15:00 19:15:00 Pre-Reg r Clinic [facility] 21 [facility] 2018-09-03 2018-09-03 Outpatient MHIE MHIE [id number] Memoria 13:15:00 13:15:00 21 [facility] 2018-09-03 2018-09-03 Outpatient Natan Atkinson MISCHER MISCHER [id number] 13:15:00 13:15:00 C 21 2018-08-10 2018-08-12 Phone nullFlavo [facility] [id number] Memoria 20:20:00 04:59:59 Message r Clinic [facility] 28 [facility] 2018-08-10 2018-08-12 Phone nullFlavo [facility] [id number] Memoria 20:20:00 04:59:59 Message r Clinic [facility] 28 [facility] 2018-08-10 2018-08-11 Outpatient MHMISCHER MHMISCHER [id number] 15:20:00 23:59:59 28 2018-07-24 2018-07-24 Outpt Diag nullFlavo [facility] [id number] Memoria 13:45:00 13:45:00 Services r Outpatient 02 Imaging [facility] 2018-07-24 2018-07-24 Outpt Diag nullFlavo [facility] [id number] Memoria 13:45:00 13:45:00 Services r Outpatient 02 [facility] 2018-07-24 2018-07-24 Outpatient Natan Atkinson [facility] [id number] 08:45:00 08:45:00 C 2018-07-23 2018-07-24 Outpatient nullFlavo [facility] [id number] Memoria 15:00:00 04:59:59 r Clinic TM 17 [facility] 2018-07-23 2018-07-24 Outpatient nullFlavo [facility] [id number] Memoria 15:00:00 04:59:59 r Clinic [facility] 17 [facility] 2018-07-23 2018-07-23 Outpatient Demetrio, Natan RANJEETSCHDAO MHMISCHER [id number] 10:00:00 23:59:59 C 17 2018-07-23 2018-07-23 Outpatient MHIE MHIE [id number] Memoria 10:00:00 10:00:00 17 [facility] 2018-07-12 2018-07-14 Phone nullFlavo [facility] [id number] Memoria 20:01:00 04:59:59 Message r Clinic [facility] 27 [facility] 2018-07-12 2018-07-14 Phone nullFlavo [facility] [id number] Memoria 20:01:00 04:59:59 Message r Clinic [facility] 27 [facility] 2018-07-12 2018-07-13 Outpatient MHMISCHER MHMISCHER [id number] 15:01:00 23:59:59 27 2018-07-05 2018-07-05 Ambulatory nullFlavo [facility] [id number] Memoria 13:00:00 13:00:00 Pre-Reg r Clinic [facility] 20 [facility] 2018-07-05 2018-07-05 Ambulatory nullFlavo [facility] [id number] Memoria 13:00:00 13:00:00 Pre-Reg r Clinic TM 20 [facility] 2018-07-05 2018-07-05 Outpatient MHIE MHIE [id number] Memoria 08:00:00 08:00:00 20 [facility] 2018-07-05 2018-07-05 Outpatient DemetrioNatan MISCHER MISCHER [id number] 08:00:00 08:00:00 C 20 2018-07-02 2018-07-04 Phone nullFlavo [facility] [id number] Memoria 14:27:00 04:59:59 Message r Clinic [facility] 26 [facility] 2018-07-02 2018-07-04 Phone nullFlavo [facility] [id number] Memoria 14:27:00 04:59:59 Message r Clinic TM 26 [facility] 2018-07-02 2018-07-03 Outpatient MHMISCHER MHMISCHER [id number] 09:27:00 23:59:59 26 2018-07-02 2018-07-03 Outpatient MHMISCHER MHMISCHER [id number] 09:27:00 23:59:59 26 2018-06-13 2018-06-15 Phone nullFlavo [facility] [id number] Memoria 16:29:00 04:59:59 Message r Clinic [facility] 25 [facility] 2018-06-13 2018-06-15 Phone nullFlavo [facility] [id number] Memoria 16:29:00 04:59:59 Message r Clinic [facility] 25 [facility] 2018-06-13 2018-06-14 Outpatient MHMISCHER MHMISCHER [id number] 11:29:00 23:59:59 25 2018-06-07 2018-06-07 Ambulatory nullFlavo [facility] [id number] Memoria 15:15:00 15:15:00 Pre-Reg r Clinic [facility] 19 [facility] 2018-06-07 2018-06-07 Ambulatory nullFlavo [facility] [id number] Memoria 15:15:00 15:15:00 Pre-Reg r Clinic [facility] 19 [facility] 2018-06-07 2018-06-07 Outpatient MHIE MHIE [id number] Memoria 10:15:00 10:15:00 19 [facility] 2018-06-07 2018-06-07 Outpatient Natan Atkinson MHMISCHER MHMISCHER [id number] 10:15:00 10:15:00 C 19 2018-05-10 2018-05-11 Outpatient nullFlavo [facility] [id number] Memoria 14:30:00 04:59:59 r Clinic [facility] 18 [facility] 2018-05-10 2018-05-11 Outpatient nullFlavo [facility] [id number] Memoria 14:30:00 04:59:59 r Clinic [facility] 18 [facility] 2018-05-10 2018-05-10 Outpatient David Barker MHMISCHER MHMISCHER [id number] 09:30:00 23:59:59 Antonella 18 2018-05-10 2018-05-10 Outpatient MHIE MHIE [id number] Memoria 09:30:00 09:30:00 18 [facility] 2018-05-04 2018-05-06 Phone nullFlavo MNA [id number] Memoria 15:29:00 04:59:59 Message r Neurosurger 24 l y [facility] 2018-05-04 2018-05-06 Phone nullFlavo MNA [id number] Memoria 15:29:00 04:59:59 Message r Neurosurger 24 l y [facility] 2018-05-04 2018-05-05 Outpatient MHMISCHER MHMISCHER [id number] 10:29:00 23:59:59 24 2018-05-02 2018-05-04 Phone nullFlavo [facility] [id number] Memoria 15:13:00 04:59:59 Message r Clinic TM 23 lauren [place] 2018-05-02 2018-05-04 Phone nullFlavo [facility] [id number] Memoria 15:13:00 04:59:59 Message r Clinic [facility] 23 [facility] 2018-05-02 2018-05-03 [facility] [id number] 10:13:00 23:59:59 23 2018-04-17 2018-04-19 Phone nullFlavo [facility] [id number] Memoria 21:06:00 04:59:59 Message r Clinic [facility] 22 lauren [place] 2018-04-17 2018-04-19 Phone nullFlavo [facility] [id number] Memoria 21:06:00 04:59:59 Message r Clinic [facility] 22 [facility] 2018-04-17 2018-04-18 Outpatient MHMISCHER MHMISCHER [id number] 16:06:00 23:59:59 22 2018-04-05 2018-04-06 Outpatient nullFlavo [facility] [id number] Memoria 18:45:00 04:59:59 r Clinic TM 10 [facility] 2018-04-05 2018-04-06 Outpatient nullFlavo [facility] [id number] Memoria 18:45:00 04:59:59 r Clinic [facility] 10 [facility] 2018-04-05 2018-04-05 Outpatient Natan Atkinson MISCHER MHMISCHER [id number] 13:45:00 23:59:59 C 10 2018-04-05 2018-04-05 Ambulatory nullFlavo [facility] [id number] Memoria 19:30:00 19:30:00 Pre-Reg r Clinic TM 16 lauren [place] 2018-04-05 2018-04-05 Ambulatory nullFlavo [facility]ine [id number] Memoria 19:30:00 19:30:00 Pre-Reg r Clinic TM 16 lauren [place] 2018-04-05 2018-04-05 Outpatient MHIE MHIE [id number] Memoria 14:30:00 14:30:00 16 [facility] 2018-04-05 2018-04-05 Outpatient CHEMA Treviño MISCHER [id number] 14:30:00 14:30:00 Hailey Brewer 16 2018-04-05 2018-04-05 Outpatient MHIE MHIE [id number] Memoria 13:45:00 13:45:00 10 lauren [place] 2018-03-29 2018-03-31 Phone nullFlavo [facility]NA [facility]ine [id number] Memoria 21:46:00 04:59:59 Message r Clinic [facility] [place] 21 lauren [place] 2018-03-29 2018-03-31 Phone nullFlavo [facility]NA Spine [id number] Memoria 21:46:00 04:59:59 Message r Clinic [facility] 21 lauren [place] 2018-03-29 2018-03-30 Outpatient MHMISCHER MHMISCHER [id number] 16:46:00 23:59:59 21 2018-03-28 2018-03-28 Outpatient MHIE MHIE [id number] Memoria 09:45:00 09:45:00 15 lauren [place] 2018-03-28 2018-03-28 Outpatient MHIE MHIE [id number] Memoria 09:45:00 09:45:00 15 lauren [place] 2018-03-23 2018-03-25 Phone nullFlavo MNA Spine [id number] Memoria 20:04:00 04:59:59 Message r Clinic TM 20 lauren [place] 2018-03-23 2018-03-25 Phone nullFlavo MNA Spine [id number] Memoria 20:04:00 04:59:59 Message r Clinic [facility] 20 lauren [place]in[place] 2018-03-23 2018-03-24 Outpatient MHMISCHER MHMISCHER [id number] 15:04:00 23:59:59 2018-03-21 2018-03-22 Outpatient nullFlavo MNA Spine [id number] Memoria 13:45:00 04:59:59 r Clinic [facility] 14 [facility] 2018-03-21 2018-03-22 Outpatient nullFlavo MNA Spine [id number] Memoria 13:45:00 04:59:59 r Clinic [facility] 14 [facility] 2018-03-22 2018-03-22 Ambulatory nullFlavo MNA Spine [id number] Memoria 01:45:00 01:45:00 Pre-Reg r Clinic [facility] 13 [facility] 2018-03-22 2018-03-22 Ambulatory nullFlavo MNA Spine [id number] Memoria 01:45:00 01:45:00 Pre-Reg r Clinic [facility] 13 [facility] 2018-03-21 2018-03-21 Outpatient David Barker MISCHER MISCHER [id number] 08:45:00 23:59:59 samanta 14 2018-03-21 2018-03-21 Outpatient MHIE MHIE [id number] Memoria 20:45:00 20:45:00 13 [facility] 2018-03-21 2018-03-21 Outpatient FLORECITA TreviñoMISCHDAO MISCHER [id number] 20:45:00 20:45:00 Hailey Brewer 13 2018-03-21 2018-03-21 Outpatient MHIE MHIE [id number] Memoria 08:45:00 08:45:00 14 [facility] 2018-03-15 2018-03-16 Outpatient nullFlavo MNA Spine [id number] Memoria 18:15:00 04:59:59 r Clinic [facility] 12 [facility] 2018-03-15 2018-03-16 Outpatient nullFlavo MNA Spine [id number] Memoria 18:15:00 04:59:59 r Clinic [facility] 12 [facility] 2018-03-15 2018-03-15 Outpatient David Barker MHMISCHER MHMISCHER [id number] 13:15:00 23:59:59 samanta 12 2018-03-15 2018-03-15 Outpatient MHIE MHIE [id number] Memoria 13:15:00 13:15:00 12 [facility] 2018-03-13 2018-03-15 Phone nullFlavo MNA [id number] Memoria 16:44:00 04:59:59 Message r Neurosurger 19 l y [facility] 2018-03-13 2018-03-15 Phone nullFlavo MNA [id number] Memoria 16:44:00 04:59:59 Message r Neurosurger 19 l y [facility] 2018-03-13 2018-03-14 Outpatient MHMISCHER MHMISCHER [id number] 11:44:00 23:59:59 19 2018-03-12 2018-03-14 Phone nullFlavo MNA Spine [id number] Memoria 15:53:00 04:59:59 Message r Clinic [facility] 18 l [place] 2018-03-12 2018-03-14 Phone nullFlavo MNA Spine [id number] Memoria 15:53:00 04:59:59 Message r Clinic [facility] 18 l [place] 2018-03-12 2018-03-13 Outpatient MHMISCHER MHMISCHER [id number] 10:53:00 23:59:59 18 2018-03-09 2018-03-10 Outpatient nullFlavo MNA Spine [id number] Memoria 17:30:00 04:59:59 r Clinic [facility] 11 l [place] 2018-03-09 2018-03-10 Outpatient nullFlavo MNA Spine [id number] Memoria 17:30:00 04:59:59 r [facility] 11 [facility] 2018-03-08 2018-03-10 Phone nullFlavo MNA [id number] Memoria 13:48:00 04:59:59 Message r Neurosurger 17 l y [facility] 2018-03-08 2018-03-10 Phone nullFlavo MNA Spine [id number] Memoria 13:48:00 04:59:59 Message r Clinic [facility] 16 l [place] 2018-03-08 2018-03-10 Phone nullFlavo MNA [id number] Memoria 13:48:00 04:59:59 Message r Neurosurger 17 l y [facility] 2018-03-08 2018-03-10 Phone nullFlavo MNA Spine [id number] Memoria 13:48:00 04:59:59 Message r Clinic [facility] 16 l [place] 2018-03-09 2018-03-09 Outpatient Amsbaugh, MISCHER MHMISCHER [id number] 12:30:00 23:59:59 Hailey Brewer 11 2018-03-08 2018-03-09 Outpatient MHMISCHER MHMISCHER [id number] 08:48:00 23:59:59 16 2018-03-08 2018-03-09 Outpatient MHMISCHER MHMISCHER [id number] 08:48:00 23:59:59 17 2018-03-09 2018-03-09 Outpatient MHIE MHIE [id number] Memoria 12:30:00 12:30:00 11 [facility] 2018-03-06 2018-03-08 Phone nullFlavo MNA Spine [id number] Memoria 19:58:00 04:59:59 Message r Clinic [facility] 15 [facility] 2018-03-06 2018-03-08 Phone nullFlavo MNA Spine [id number] Memoria 19:58:00 04:59:59 Message r Clinic [facility] 15 [facility] 2018-03-06 2018-03-07 Outpatient MHMISCHER MHMISCHER [id number] 14:58:00 23:59:59 15 2018-03-06 2018-03-07 Outpatient nullFlavo MNA Spine [id number] Memoria 18:45:00 04:59:59 r Clinic [facility] 08 [facility] 2018-03-06 2018-03-07 Outpatient nullFlavo MNA Spine [id number] Memoria 18:45:00 04:59:59 r Clinic [facility] 08 [facility] 2018-03-06 2018-03-07 Outpatient nullFlavo MNA Spine [id number] Memoria 18:30:00 04:59:59 r Clinic [facility] 09 [facility] 2018-03-06 2018-03-07 Outpatient nullFlavo MNA Spine [id number] Memoria 18:30:00 04:59:59 r Clinic [facility] 09 [facility] 2018-03-06 2018-03-07 Outpt Diag nullFlavo [facility] [id number] Memoria 16:54:00 04:59:00 Services r Outpatient 01 l [facility] 2018-03-06 2018-03-07 Outpt Diag nullFlavo [facility] [id number] Memoria 16:54:00 04:59:00 [facility] [place] 2018-03-06 2018-03-06 Outpatient David Barker MHMISCHER MHMISCHER [id number] 13:45:00 23:59:59 Hwan 08 2018-03-06 2018-03-06 Outpatient FLORECITA TreviñoMISCHER MHMISCHER [id number] 13:30:00 23:59:59 Hailey Brewer 09 2018-03-06 2018-03-06 Outpatient Natan Atkinson MHOIH MHOIH [id number] 11:54:00 23:59:00 C 2018-03-06 2018-03-06 Outpatient MHIE MHIE [id number] Memoria 13:45:00 13:45:00 08 lauren [place] 2018-03-06 2018-03-06 Outpatient MHIE MHIE [id number] Memoria 13:30:00 13:30:00 09 [facility] 2018-02-06 2018-02-07 Outpatient nullFlavo MNA Spine [id number] Memoria 16:00:00 04:59:59 r Clinic TM 07 [facility] 2018-02-06 2018-02-07 Outpatient nullFlavo [facility] Spine [id number] Memoria 16:00:00 04:59:59 r Clinic TM 07 [facility] 2018-02-06 2018-02-06 Outpatient Natan Atkinson MISCHER MHMISCHER [id number] 11:00:00 23:59:59 C 07 2018-02-06 2018-02-06 Outpatient MHIE MHIE [id number] Memoria 11:00:00 11:00:00 07 lauren [place] 2018-01-25 2018-01-27 Phone nullFlavo MNA Spine [id number] Memoria 18:31:00 04:59:59 Message r Clinic TM 14 lauren [place] 2018-01-25 2018-01-27 Phone nullFlavo MNA Spine [id number] Memoria 18:31:00 04:59:59 Message r Clinic [facility] 14 [facility] 2018-01-25 2018-01-26 Outpatient MHMISCHER MHMISCHER [id number] 13:31:00 23:59:59 14 2018-01-22 2018-01-24 Phone nullFlavo MNA Spine [id number] Memoria 13:26:00 04:59:59 Message r Clinic [facility] 13 l [place] 2018-01-22 2018-01-24 Phone nullFlavo MNA Spine [id number] Memoria 13:26:00 04:59:59 Message r [facility] 13 [facility] 2018-01-22 2018-01-23 Outpatient MHMISCHER MHMISCHER [id number] 08:26:00 23:59:59 13 2018-01-17 2018-01-20 Inpatient nullFlavo [facility] [id number] Memoria 16:34:00 16:49:00 r [place] 00 [facility] 2018-01-17 2018-01-20 Inpatient nullFlavo [facility] [id number] Memoria 16:34:00 16:49:00 r [place] 00 [facility] 2018-01-17 2018-01-20 Outpatient Natan Atkinson [facility] [id number] 11:34:00 11:49:00 C 2018-01-17 2018-01-18 Outpatient nullFlavo MNA [id number] Memoria 13:30:00 04:59:59 r Neurosurger 05 l y [facility] 2018-01-17 2018-01-18 Outpatient nullFlavo MNA [id number] Memoria 13:30:00 04:59:59 r Neurosurger 05 l y [facility] 2018-01-17 2018-01-17 [facility] [id number] 08:30:00 23:59:59 C 2018-01-17 2018-01-17 Ambulatory nullFlavo MNA [id number] Memoria 13:30:00 13:30:00 Pre-Reg r Neurosurger 06 l y [facility] 2018-01-17 2018-01-17 Ambulatory nullFlavo MNA [id number] Memoria 13:30:00 13:30:00 Pre-Reg r Neurosurger 06 l y [facility] 2018-01-17 2018-01-17 Outpatient MHIE MHMELVIN [id number] Memoria 08:30:00 08:30:00 05 [facility] 2018-01-17 2018-01-17 Outpatient MHIE MHIE [id number] Memoria 08:30:00 08:30:00 06 lauren [place] 2018-01-17 2018-01-17 [facility] [id number] 08:30:00 08:30:00 [facility] 2018-01-15 2018-01-15 Bedded nullFlavo [facility] [id number] Memoria 13:42:00 19:30:00 Outpatient r [place] 03 [facility] 2018-01-15 2018-01-15 Bedded nullFlavo [facility] [id number] Memoria 13:42:00 19:30:00 Outpatient r [place] 03 [facility] 2018-01-15 2018-01-15 Outpatient Contreras [facility] [id number] 08:42:00 14:30:00 David Ennis 2018-01-02 2018-01-04 Phone nullFlavo MNA Spine [id number] Memoria 16:37:00 04:59:59 Message r Clinic [facility] 12 [facility] 2018-01-02 2018-01-04 Phone nullFlavo MNA Spine [id number] Memoria 16:37:00 04:59:59 Message r Clinic TM 12 [facility] 2018-01-02 2018-01-03 Outpatient MHMISCHER MHMISCHER [id number] 11:37:00 23:59:59 12 2018-01-01 2018-01-03 Phone nullFlavo MNA Spine [id number] Memoria 19:53:00 04:59:59 Message r Clinic TM 11 [facility] 2018-01-01 2018-01-03 Phone nullFlavo MNA Spine [id number] Memoria 19:53:00 04:59:59 Message r Clinic [facility] 11 [facility] 2018-01-01 2018-01-02 Outpatient MHMISCHER MHMISCHER [id number] 14:53:00 23:59:59 11 2017-12-28 2017-12-30 Phone nullFlavo MNA Spine [id number] Memoria 19:06:00 05:59:59 Message r Clinic [facility] 10 [facility] 2017-12-28 2017-12-30 Phone nullFlavo MNA Spine [id number] Memoria 19:06:00 05:59:59 Message r Clinic [facility] 10 l [place] 2017-12-29 2017-12-30 Outpatient nullFlavo [facility] [id number] Memoria 16:54:00 05:59:00 r [place] 02 [facility] 2017-12-29 2017-12-30 Outpatient nullFlavo [facility] [id number] Memoria 16:54:00 05:59:00 r [place] 02 [facility] 2017-12-28 2017-12-29 Outpatient MHMISCHER MHMISCHER [id number] 13:06:00 23:59:59 10 2017-12-28 2017-12-29 Outpatient MHMISCHER MHMISCHER [id number] 13:06:00 23:59:59 10 2017-12-29 2017-12-29 Outpatient Ben [facility] [id number] 10:54:00 23:59:00 David Ennis 2017-12-29 2017-12-29 Outpatient Ben [facility] [id number] 10:54:00 23:59:00 David Lauren 2017-12-28 2017-12-29 Outpatient nullFlavo [facility] Spine [id number] Memoria 19:15:00 05:59:59 r [facility] 04 l [place] 2017-12-28 2017-12-29 Outpatient nullFlavo MNA Spine [id number] Memoria 19:15:00 05:59:59 r [facility] 04 l [place] 2017-12-28 2017-12-29 Outpt Diag nullFlavo [facility] [id number] Memoria 22:06:00 05:59:00 Services r Outpatient 00 l Imaging [facility] 2017-12-28 2017-12-29 [place] [id number] Memoria 22:06:00 05:59:00 Services r Outpatient 00 l Imaging [facility] 2017-12-28 2017-12-28 Outpatient David Barker MHMISCHER MHMISCHER [id number] 13:15:00 23:59:59 [place] 2017-12-28 2017-12-28 Outpatient Natan Atkinson OIH MHOI [id number] 16:06:00 23:59:00 C 00 2017-12-28 2017-12-28 Outpatient MHIE MHIE [id number] Memoria 13:15:00 13:15:00 04 l [place] 2017-12-22 2017-12-23 Outpatient nullFlavo [facility] [id number] Memoria 15:24:00 05:59:00 r Higinio l [facility] 2017-12-22 2017-12-23 Outpatient nullFlavo [facility] [id number] Memoria 15:24:00 05:59:00 r [place] [facility] Advanced Heart Failure 2017-12-22 2017-12-22 Outpatient Ben [facility] [id number] 09:24:00 23:59:00 David Lauren 2017-12-15 2017-12-16 Outpatient nullFlavo [facility] Spine [id number] Memoria 18:00:00 05:59:59 r [facility] 2017-12-15 2017-12-16 Outpatient nullFlavo MNA Spine [id number] Memoria 18:00:00 05:59:59 r [facility] 03 [facility] 2017-12-15 2017-12-15 Outpatient BECKIE TreviñoSCHDAO MISCHER [id number] 12:00:00 23:59:59 Hailey Daniella 2017-12-15 2017-12-15 Outpatient MHIE MHIE [id number] Memoria 12:00:00 12:00:00 03 [facility] 2017-12-14 2017-12-15 Outpatient nullFlavo [facility] Spine [id number] Memoria 17:15:00 05:59:59 r [facility] 2017-12-14 2017-12-15 Outpatient nullFlavo [facility]NA Spine [id number] Memoria 17:15:00 05:59:59 r [facility] 2017-12-14 2017-12-14 Outpatient Natan Atkinson MISCHER MHMISCHER [id number] 11:15:00 23:59:59 C 2017-12-14 2017-12-14 Outpatient MHIE MHIE [id number] Memoria 11:15:00 11:15:00 02 l [place] 2017-12-08 2017-12-10 Phone nullFlavo MNA Spine [id number] Memoria 16:30:00 05:59:59 Message r Clinic [facility] 09 lauren [place] 2017-12-08 2017-12-10 Phone nullFlavo MNA Spine [id number] Memoria 16:30:00 05:59:59 Message r Clinic [facility] 09 lauren [place] 2017-12-08 2017-12-09 Outpatient MHMISCHER MHMISCHER [id number] 10:30:00 23:59:59 09 2017-12-04 2017-12-06 Phone nullFlavo MNA Spine [id number] Memoria 21:25:00 05:59:59 Message r Clinic [facility] 08 lauren [place] 2017-12-04 2017-12-06 Phone nullFlavo MNA Spine [id number] Memoria 21:25:00 05:59:59 Message r Clinic [facility] 08 lauren [place] 2017-12-04 2017-12-05 Outpatient MHMISCHER MHMISCHER [id number] 15:25:00 23:59:59 08 2017-11-29 2017-12-01 Phone nullFlavo MNA [id number] Memoria 18:04:00 05:59:59 Message r Neurosurger 07 l y [facility] 2017-11-29 2017-12-01 Phone nullFlavo MNA [id number] Memoria 18:04:00 05:59:59 Message r Neurosurger 07 l y [facility] 2017-11-29 2017-12-01 Phone nullFlavo MNA Spine [id number] Memoria 17:48:00 05:59:59 Message r Clinic [facility] 06 lauren [place] 2017-11-29 2017-12-01 Phone nullFlavo MNA Spine [id number] Memoria 17:48:00 05:59:59 Message r Clinic [facility] 06 [facility] 2017-11-29 2017-11-30 Outpatient MHMISCHER MHMISCHER [id number] 12:04:00 23:59:59 07 2017-11-29 2017-11-30 Outpatient MHMISCHER MHMISCHER [id number] 11:48:00 23:59:59 06 2017-11-28 2017-11-30 Phone nullFlavo MNA Spine [id number] Memoria 13:37:00 05:59:59 Message r Clinic [facility] 05 [facility] 2017-11-28 2017-11-30 Phone nullFlavo MNA Spine [id number] Memoria 13:37:00 05:59:59 Message r [facility] 05 [facility] 2017-11-28 2017-11-29 Outpatient MHMISCHER MHMISCHER [id number] 07:37:00 23:59:59 05 2017-11-28 2017-11-29 Outpatient nullFlavo MNA Spine [id number] Memoria 14:00:00 05:59:59 r [facility] 00 [facility] 2017-11-28 2017-11-29 Outpatient nullFlavo MNA Spine [id number] Memoria 14:00:00 05:59:59 r [facility] 01 [facility] 2017-11-28 2017-11-29 Outpatient nullFlavo MNA Spine [id number] Memoria 14:00:00 05:59:59 r [facility] 01 [facility] 2017-11-28 2017-11-29 Outpatient nullFlavo MNA Spine [id number] Memoria 14:00:00 05:59:59 r [facility] 00 [facility] 2017-11-28 2017-11-29 Outpatient nullFlavo [facility] [id number] Memoria 16:24:00 05:59:[address] 2017-11-28 2017-11-29 Outpatient nullFlavo [facility] [id number] Memoria 16:24:00 05:59:[address] r [address] 2017-11-28 2017-11-28 Outpatient David Barker MHMISCHER MHMISCHER [id number] 08:00:00 23:59:59 an 2017-11-28 2017-11-28 Outpatient David Barker MHMISCHER MHMISCHER [id number] 08:00:00 23:59:59 Hwan 2017-11-28 2017-11-28 Outpatient Natan Atkinson [facility] [id number] 10:24:00 23:59:00 C 37 2017-11-28 2017-11-28 Outpatient MHIE MHIE [id number] Memoria 08:00:00 08:00:00 01 [facility] 2017-11-28 2017-11-28 Outpatient MHIE MHIE [id number] Memoria 08:00:00 08:00:00 00 l [place] 2017-11-06 2017-11-08 Phone nullFlavo MNA [id number] Memoria 15:16:00 05:59:59 Message r Neurosurger 03 l y [facility] 2017-11-06 2017-11-08 Phone nullFlavo MNA [id number] Memoria 15:16:00 05:59:59 Message r Neurosurger 03 l y [facility] 2017-11-06 2017-11-07 Outpatient MHMISCHER MHMISCHER [id number] 09:16:00 23:59:59 2017-11-03 2017-11-05 Phone nullFlavo MNA [id number] Memoria 16:56:00 05:59:59 Message r Neurosurger 02 l y [facility] 2017-11-03 2017-11-05 Phone nullFlavo MNA [id number] Memoria 16:56:00 05:59:59 Message r Neurosurger 02 l y [facility] 2017-11-03 2017-11-04 Outpatient MHMISCHER MHMISCHER [id number] 10:56:00 23:59:59 2017-11-01 2017-11-03 Phone nullFlavo MNA Spine [id number] Memoria 16:43:00 05:59:59 Message r Clinic [facility] 2017-11-01 2017-11-03 Phone nullFlavo MNA Spine [id number] Memoria 16:43:00 05:59:59 Message r Clinic [facility] 2017-11-01 2017-11-02 Outpatient MHMISCHER MHMISCHER [id number] 10:43:00 23:59:59 2017-10-31 2017-11-02 Phone nullFlavo MNA Spine [id number] Memoria 15:17:00 05:59:59 Message r Clinic [facility] 2017-10-31 2017-11-02 Phone nullFlavo MNA Spine [id number] Memoria 15:17:00 05:59:59 Message r Clinic TM 00 [facility] 2017-10-31 2017-11-01 Outpatient MHMISCHER MHMISCHER [id number] 09:17:00 23:59:59 00 Results Test Description Test Time Test Comments Results Result Comments Source HEMATOLOGY 2018-01-18 05:21:00 Test Item Value Reference Range Interpretation Comme nts Monocytes # (test code = 0.1 See_Comment [A utomated message] The system which Monocytes #) generated this result transmitted reference range : <=0.8. The reference range was not u sed to interpret this result as maria elena l/abnormal. [facility]SAWETISO5074-52-15 05:21:00 Test Item Value Reference Range Interpretation Comments Segs (test code = Segs) 90.7 45.0-75.0 [facility]2018-03-29 05:21:00 Test Item Value Reference Range Interpretation Comments eGFR (test code = eGFR) 94 [facility]2018-03-29 05:21:00 Test Item Value Reference Range Interpretation Comments Potassium Lvl (test code = Potassium 4.1 3.5-5.1 Lvl) [facility]2018-03-29 05:21:00 Test Item Value Reference Range Interpretation Comments CO2 (test code = CO2) 26 24-32 [facility]2018-03-29 05:21:00 Test Item Value Reference Range Interpretation Comments Calcium Lvl (test code = Calcium Lvl) 7.7 8.5-10.5 [facility]2018-03-29 05:21:00 Test Item Value Reference Range Interpretation Comments AGAP (test code = AGAP) 13.1 10.0-20.0 [facility]2018-03-29 05:21:00 Test Item Value Reference Range Interpretation Comments Sodium Lvl (test code = Sodium Lvl) 142 135-145 [facility]2018-03-29 05:21:00 Test Item Value Reference Range Interpretation Comments Glucose Lvl (test code = Glucose Lvl) 105 70-99 [facility]2018-03-29 05:21:00 Test Item Value Reference Range Interpretation Comments Creatinine Lvl (test code = Creatinine 0.78 0.50-1.40 Lvl) [facility]2018-03-29 05:21:00 Test Item Value Reference Range Interpretation Comments BUN (test code = BUN) 17 7-22 [place] 732828-03-29 05:21:00 Test Item Value Reference Range Interpretation Comments Chloride Lvl (test code = Chloride Lvl) 107 95-109 [facility]MnnnuhvNWPXUGDDRY5898-35-01 05:21:00 Test Item Value Reference Range Interpretation Comments RBC (test code = RBC) 3.49 4.70-6.10 [facility] ArlingtonEjwxiamPMKFTHFTCE7083-37-65 05:21:00 Test Item Value Reference Range Interpretation Comments WBC (test code = WBC) 7.7 3.7-10.4 [facility] ArlingtonClqcxvvOAPOPEDLWM3493-41-88 05:21:00 Test Item Value Reference Range Interpretation Comments MCHC (test code = MCHC) 33.2 32.0-36.0 [facility] ArlingtonXnegrocXGPKQWFRRL4965-43-95 05:21:00 Test Item Value Reference Range Interpretation Comments Hct (test code = Hct) 31.5 42.0-54.0 [facility] ArlingtonMapynvyTSLVZIZRNZ8472-96-38 05:21:00 Test Item Value Reference Range Interpretation Comments MCH (test code = MCH) 30.0 pg 27.0-31.0 [facility] ArlingtonMiydlseFKQDQGHTIX2195-80-58 05:21:00 Test Item Value Reference Range Interpretation Comments Hgb (test code = Hgb) 10.5 14.0-18.0 [facility] ArlingtonUwogbibTWKFJMZMPQ6211-55-89 05:21:00 Test Item Value Reference Range Interpretation Comments MCV (test code = MCV) 90.3 80.0-94.0 [facility] ArlingtonKgtptcmOOIUAXDDRJ3742-60-28 05:21:00 Test Item Value Reference Range Interpretation Comments MPV (test code = MPV) 9.1 7.4-10.4 [facility] ArlingtonKkbqirpCRUSRBNPCH4402-13-33 05:21:00 Test Item Value Reference Range Interpretation Comments Platelet (test code = Platelet) 197 133-450 [facility] ArlingtonDkjlbvsUVUMKSIEPR9974-43-48 05:21:00 Test Item Value Reference Range Interpretation Comments RDW (test code = RDW) 14.7 11.5-14.5 [facility] ArlingtonCmiauciAKXNYQFERW6616-65-74 05:21:00 Test Item Value Reference Range Interpretation Comments PTT (test code = PTT) 33.1 s 22.9-35.8 [facility] ArlingtonYtyaumaTRXHKMHTLB4789-68-41 05:21:00 Test Item Value Reference Range Interpretation Comments PT (test code = PT) 14.5 s 12.0-14.7 [facility] Ar[id number] 05:21:00 Test Item Value Reference Range Interpretation Comments INR (test code = INR) 1.13 1 0.85-1.17 [facility] Ar[id number] 05:21:00 Test Item Value Reference Range Interpretation Comments Basophils # (test code 0.1 See_Comment [Aut omated message] The = Basophils #) system which generated this result tra nsmitted reference range : <=0.2. The reference r linsey was not used to int erpret this result as normal/abnormal . [facility] Ar[id number] 05:21:00 Test Item Value Reference Range Interpretation Comments Lymphocytes (test code = Lymphocytes) 6.5 20.0-40.0 [facility] ArlingtonJchjcluHDGYQZSJNX5998-53-31 05:21:00 Test Item Value Reference Range Interpretation Comments Eosinophils (test code = 0.2 See_Comment [A utomated message] The Eosinophils) system which ge nerated this result tra nsmitted reference range : <=4.0. The reference r linsey was not used to int erpret this result as normal/abnormal . [facility] ArlingtonGuijujaQQJCHACNYS0288-25-72 05:21:00 Test Item Value Reference Range Interpretation Comments Basophils (test code = 0.8 See_Comment [Aut omated message] The Basophils) system which ge nerated this result tra nsmitted reference range : <=1.0. The reference r linsey was not used to int erpret this result as normal/abnormal . [facility] ArlingtonZtbhpthUHORJIBINN6931-25-66 05:21:00 Test Item Value Reference Range Interpretation Comments Segs-Bands # (test code = Segs-Bands #) 7.0 1.5-8.1 [facility] ArlingtonAicxizfYVAYONWZSR9366-66-01 05:21:00 Test Item Value Reference Range Interpretation Comments Lymphocytes # (test code = Lymphocytes 0.5 1.0-5.5 #) [facility] ArlingtonKtwouhuSZDIMKQAKW5010-26-22 05:21:00 Test Item Value Reference Range Interpretation Comments Monocytes (test code = Monocytes) 1.8 2.0-12.0 [facility] ArlingtonNegzfcvDIFJQUGNOL3395-07-95 05:21:00 Test Item Value Reference Range Interpretation Comments Monocytes # (test code 0.1 See_Comment [Aut omated message] The = Monocytes #) system which generated this result tra nsmitted reference range : <=0.8. The reference r linsey was not used to int erpret this result as normal/abnormal . [facility] ArlingtonHslxhcrABBRHHMXLX1930-28-80 05:21:00 Test Item Value Reference Range Interpretation Comments Segs (test code = Segs) 90.7 45.0-75.0 [facility]2018-03-29 05:21:00 Test Item Value Reference Range Interpretation Comments eGFR (test code = eGFR) 94 [facility]2018-03-29 05:21:00 Test Item Value Reference Range Interpretation Comments Potassium Lvl (test code = Potassium 4.1 3.5-5.1 Lvl) [facility]2018-03-29 05:21:00 Test Item Value Reference Range Interpretation Comments CO2 (test code = CO2) 26 24-32 [facility]2018-03-29 05:21:00 Test Item Value Reference Range Interpretation Comments Calcium Lvl (test code = Calcium Lvl) 7.7 8.5-10.5 [facility]2018-03-29 05:21:00 Test Item Value Reference Range Interpretation Comments AGAP (test code = AGAP) 13.1 10.0-20.0 [facility]2018-03-29 05:21:00 Test Item Value Reference Range Interpretation Comments Sodium Lvl (test code = Sodium Lvl) 142 135-145 [facility]2018-03-29 05:21:00 Test Item Value Reference Range Interpretation Comments Glucose Lvl (test code = Glucose Lvl) 105 70-99 [facility]2018-03-29 05:21:00 Test Item Value Reference Range Interpretation Comments Creatinine Lvl (test code = Creatinine 0.78 0.50-1.40 Lvl) [facility]2018-03-29 05:21:00 Test Item Value Reference Range Interpretation Comments BUN (test code = BUN) 17 7-22 [facility]2018-03-29 05:21:00 Test Item Value Reference Range Interpretation Comments Chloride Lvl (test code = Chloride Lvl) 107 95-109 [facility] ArlingtonLwolmalPADHTMKDGV1145-98-89 05:21:00 Test Item Value Reference Range Interpretation Comments RBC (test code = RBC) 3.49 4.70-6.10 [facility] ArlingtonLspbrdgRSIGHBJASB9240-36-18 05:21:00 Test Item Value Reference Range Interpretation Comments WBC (test code = WBC) 7.7 3.7-10.4 [facility] ArlingtonPqhcytkOSWUOMJIKX4140-33-03 05:21:00 Test Item Value Reference Range Interpretation Comments MCHC (test code = MCHC) 33.2 32.0-36.0 [facility] ArlingtonIctsdneALIDJRNQCZ9813-98-53 05:21:00 Test Item Value Reference Range Interpretation Comments Hct (test code = Hct) 31.5 42.0-54.0 [facility] ArlingtonIesmltpRRGHUBLGKU4893-72-92 05:21:00 Test Item Value Reference Range Interpretation Comments MCH (test code = MCH) 30.0 pg 27.0-31.0 [facility] ArlingtonRnrxemuWOIOAODTWW8390-64-97 05:21:00 Test Item Value Reference Range Interpretation Comments Hgb (test code = Hgb) 10.5 14.0-18.0 [facility] ArlingtonRqimjxnVUONWLPLBV3436-95-33 05:21:00 Test Item Value Reference Range Interpretation Comments MCV (test code = MCV) 90.3 80.0-94.0 [facility] ArlingtonCpoaurkLTGAAOYWGY1860-08-06 05:21:00 Test Item Value Reference Range Interpretation Comments MPV (test code = MPV) 9.1 7.4-10.4 [facility] ArlingtonQzdxopkVIZLLRRXOM1086-17-37 05:21:00 Test Item Value Reference Range Interpretation Comments Platelet (test code = Platelet) 197 133-450 [facility] ArlingtonYlknrbcSOOAHUBTQQ4123-67-12 05:21:00 Test Item Value Reference Range Interpretation Comments RDW (test code = RDW) 14.7 11.5-14.5 [facility] ArlingtonSbituhaDFTLXWFWOB5509-61-52 05:21:00 Test Item Value Reference Range Interpretation Comments PTT (test code = PTT) 33.1 s 22.9-35.8 [facility] ArlingtonIjphykoBSOQHRLORC3646-52-98 05:21:00 Test Item Value Reference Range Interpretation Comments PT (test code = PT) 14.5 s 12.0-14.7 [facility] ArlingtonNxukavtVPIBAPWZDO0975-52-56 05:21:00 Test Item Value Reference Range Interpretation Comments INR (test code = INR) 1.13 1 0.85-1.17 [facility] ArlingtonXdrdwrgFFBINYAJOT8351-75-03 05:21:00 Test Item Value Reference Range Interpretation Comments Basophils # (test code 0.1 See_Comment [Aut omated message] The = Basophils #) system which generated this result tra nsmitted reference range : <=0.2. The reference r linsey was not used to int erpret this result as normal/abnormal . [facility] ArlingtonPhmnsyaLOALBRZAIH3517-00-62 05:21:00 Test Item Value Reference Range Interpretation Comments Lymphocytes (test code = Lymphocytes) 6.5 20.0-40.0 [facility] ArlingtonMjpzvnkSIPDLPQNWF2592-66-07 05:21:00 Test Item Value Reference Range Interpretation Comments Eosinophils (test code = 0.2 See_Comment [A utomated message] The Eosinophils) system which ge nerated this result tra nsmitted reference range : <=4.0. The reference r linsey was not used to int erpret this result as normal/abnormal . [facility] ArlingtonLmyvvfjLWBSWAMHGT1200-17-70 05:21:00 Test Item Value Reference Range Interpretation Comments Basophils (test code = 0.8 See_Comment [Aut omated message] The Basophils) system which ge nerated this result tra nsmitted reference range : <=1.0. The reference r linsey was not used to int erpret this result as normal/abnormal . [facility] ArlingtonSebdybaLGHFRLJDVH4926-70-09 05:21:00 Test Item Value Reference Range Interpretation Comments Segs-Bands # (test code = Segs-Bands #) 7.0 1.5-8.1 [facility] ArlingtonMfqlvbaWKGAASYAVG0740-24-35 05:21:00 Test Item Value Reference Range Interpretation Comments Lymphocytes # (test code = Lymphocytes 0.5 1.0-5.5 #) [facility] ArlingtonNfztqhcXSUTFJCULI9225-56-77 05:21:00 Test Item Value Reference Range Interpretation Comments Monocytes (test code = Monocytes) 1.8 2.0-12.0 [facility] ArlingtonHsnkkykFNVKMKSMBM3940-81-88 17:37:00 Test Item Value Reference Range Interpretation Comments MPV (test code = MPV) 8.9 7.4-10.4 [facility] ArlingtonAnzbfycOLDBACTJXB2281-08-83 17:37:00 Test Item Value Reference Range Interpretation Comments Platelet (test code = Platelet) 253 133-450 [facility] ArlingtonVvvrcwdEUAOZVMTOV0975-69-69 17:37:00 Test Item Value Reference Range Interpretation Comments WBC (test code = WBC) 7.9 3.7-10.4 [facility] ArlingtonEbhniejHYNCUCEGYC3890-02-79 17:37:00 Test Item Value Reference Range Interpretation Comments Hgb (test code = Hgb) 14.8 14.0-18.0 [facility] ArlingtonGejsvdpUFXQPVAKIM3383-79-04 17:37:00 Test Item Value Reference Range Interpretation Comments RBC (test code = RBC) 4.90 4.70-6.10 [facility] ArlingtonDawyywmZNUSZEKNCD8042-10-61 17:37:00 Test Item Value Reference Range Interpretation Comments Hct (test code = Hct) 44.0 42.0-54.0 [facility] ArlingtonJeswocaXKJIYXVQDQ3416-42-04 17:37:00 Test Item Value Reference Range Interpretation Comments MCV (test code = MCV) 89.8 80.0-94.0 [facility] ArlingtonLruelzeXMJGZQTXID0589-97-92 17:37:00 Test Item Value Reference Range Interpretation Comments RDW (test code = RDW) 14.9 11.5-14.5 [facility] ArlingtonSdbfkfuPMFMBSSHMY4075-45-98 17:37:00 Test Item Value Reference Range Interpretation Comments MCH (test code = MCH) 30.2 pg 27.0-31.0 [facility] ArlingtonYkerubnBZSXMNPHUM5005-08-72 17:37:00 Test Item Value Reference Range Interpretation Comments MCHC (test code = MCHC) 33.6 32.0-36.0 [facility] ArlingtonXyolhtbDDTSRBGCCM6196-29-31 17:37:00 Test Item Value Reference Range Interpretation Comments Segs-Bands # (test code = Segs-Bands #) 5.5 1.5-8.1 [facility] ArlingtonPlpbtfyMGIAZYJURT7895-44-27 17:37:00 Test Item Value Reference Range Interpretation Comments Eosinophils # (test code 0.3 See_Comment [A utomated message] The = Eosinophils #) system whic h generated this result tra nsmitted reference range : <=0.5. The reference r linsey was not used to int erpret this result as normal/abnormal . [facility] ArlingtonTsnnxoxYTIHMMUPJP8833-29-00 17:37:00 Test Item Value Reference Range Interpretation Comments Lymphocytes # (test code = Lymphocytes 1.5 1.0-5.5 #) [facility] ArlingtonDsymkceBHIAWHBGPV3182-03-41 17:37:00 Test Item Value Reference Range Interpretation Comments Monocytes # (test code 0.7 See_Comment [Aut omated message] The = Monocytes #) system which generated this result tra nsmitted reference range : <=0.8. The reference r linsey was not used to int erpret this result as normal/abnormal . [facility] ArlingtonJybfubfWPTVLYFACP0124-94-07 17:37:00 Test Item Value Reference Range Interpretation Comments Lymphocytes (test code = Lymphocytes) 18.9 20.0-40.0 [facility] ArlingtonKfujdtcRWMLHMRKKQ3433-40-72 17:37:00 Test Item Value Reference Range Interpretation Comments Basophils (test code = 0.5 See_Comment [Aut omated message] The Basophils) system which ge nerated this result tra nsmitted reference range : <=1.0. The reference r linsey was not used to int erpret this result as normal/abnormal . [facility] ArlingtonCmmwvfgZVUUUAMDNV0032-74-77 17:37:00 Test Item Value Reference Range Interpretation Comments MPV (test code = MPV) 8.9 7.4-10.4 [place] 155948-03-28 17:37:00 Test Item Value Reference Range Interpretation Comments Platelet (test code = Platelet) 253 133-450 [facility] ArlingtonVpgxnqkPTZNOSBOOS9357-26-02 17:37:00 Test Item Value Reference Range Interpretation Comments WBC (test code = WBC) 7.9 3.7-10.4 [facility] ArlingtonCpayihmNXTQLLZCQZ4229-73-06 17:37:00 Test Item Value Reference Range Interpretation Comments Monocytes (test code = Monocytes) 8.3 2.0-12.0 [place] 155948-03-28 17:37:00 Test Item Value Reference Range Interpretation Comments Hgb (test code = Hgb) 14.8 14.0-18.0 [facility] ArlingtonMjisltsCNBYGHDCUX7606-73-54 17:37:00 Test Item Value Reference Range Interpretation Comments RBC (test code = RBC) 4.90 4.70-6.10 [facility] ArlingtonCjzifptLFAXBKDDBE0541-25-53 17:37:00 Test Item Value Reference Range Interpretation Comments Hct (test code = Hct) 44.0 42.0-54.0 [facility] ArlingtonZlnrdyvNXJJVCRYLQ0067-42-89 17:37:00 Test Item Value Reference Range Interpretation Comments MCV (test code = MCV) 89.8 80.0-94.0 [facility] ArlingtonIyywhetGXOYLUAIDZ7067-17-88 17:37:00 Test Item Value Reference Range Interpretation Comments RDW (test code = RDW) 14.9 11.5-14.5 [facility] ArlingtonVxtoymqFFCLZCYGOS0386-37-70 17:37:00 Test Item Value Reference Range Interpretation Comments MCH (test code = MCH) 30.2 pg 27.0-31.0 [facility] ArlingtonDwftchjDBDKGANSKZ1588-73-07 17:37:00 Test Item Value Reference Range Interpretation Comments MCHC (test code = MCHC) 33.6 32.0-36.0 [facility] ArlingtonIvaqbjsBOVDYGMFQV5286-99-41 17:37:00 Test Item Value Reference Range Interpretation Comments Segs-Bands # (test code = Segs-Bands #) 5.5 1.5-8.1 [facility] ArlingtonEguvwrnOABTHTEFVO0066-11-98 17:37:00 Test Item Value Reference Range Interpretation Comments Eosinophils # (test code 0.3 See_Comment [A utomated message] The = Eosinophils #) system whic h generated this result tra nsmitted reference range : <=0.5. The reference r linsey was not used to int erpret this result as normal/abnormal . [facility] ArlingtonSpltzdsSIKRSCOFUL1115-56-51 17:37:00 Test Item Value Reference Range Interpretation Comments Lymphocytes # (test code = Lymphocytes 1.5 1.0-5.5 #) [facility] ArlingtonMbgfulnUHKBWRNYFS8682-23-57 17:37:00 Test Item Value Reference Range Interpretation Comments Eosinophils (test code = 3.5 See_Comment [A utomated message] The Eosinophils) system which ge nerated this result tra nsmitted reference range : <=4.0. The reference r linsey was not used to int erpret this result as normal/abnormal . [facility] ArlingtonAkvuztzPJKROSZZON2081-72-48 17:37:00 Test Item Value Reference Range Interpretation Comments Monocytes # (test code 0.7 See_Comment [Aut omated message] The = Monocytes #) system which generated this result tra nsmitted reference range : <=0.8. The reference r linsey was not used to int erpret this result as normal/abnormal . [facility] ArlingtonSgcmqfgAIBKFQBKLX6550-78-30 17:37:00 Test Item Value Reference Range Interpretation Comments Lymphocytes (test code = Lymphocytes) 18.9 20.0-40.0 [facility] AywapryRZRSNSSWMN9988-48-01 17:37:00 Test Item Value Reference Range Interpretation Comments Basophils (test code = 0.5 See_Comment [Aut omated message] The Basophils) system which ge nerated this result tra nsmitted reference range : <=1.0. The reference r linsey was not used to int erpret this result as normal/abnormal . [facility] WofiyjxKBYBIACKKZ5135-94-63 17:37:00 Test Item Value Reference Range Interpretation Comments Monocytes (test code = Monocytes) 8.3 2.0-12.0 [facility]uGDERJNQLZY8693-29-14 17:37:00 Test Item Value Reference Range Interpretation Comments Eosinophils (test code = 3.5 See_Comment [A utomated message] The Eosinophils) system which ge nerated this result tra nsmitted reference range : <=4.0. The reference r linsey was not used to int erpret this result as normal/abnormal . [facility]UjuxgojQYOOOBTTLU3425-91-79 17:37:00 Test Item Value Reference Range Interpretation Comments Segs (test code = Segs) 68.8 45.0-75.0 [facility] HfpjgdrAUNELDJVRY4716-77-78 17:37:00 Test Item Value Reference Range Interpretation Comments Segs (test code = Segs) 68.8 45.0-75.0 [facility] [employer] [id number] 17:32:00 Test Item Value Reference Range Interpretation Comments ABO/Rh (test code = ABO/Rh) A POS [facility] [employer] [id number] 17:32:00 Test Item Value Reference Range Interpretation Comments Antibody Scrn (test Negative (01/17/18 code = Antibody Scrn) 12:32 PM) [facility] [employer] [id number] 17:32:00 Test Item Value Reference Range Interpretation Comments Calcium Lvl (test code = Calcium Lvl) 9.1 8.5-10.5 [facility] [employer]2018-03-28 17:32:00 Test Item Value Reference Range Interpretation Comments CO2 (test code = CO2) - [facility] [employer] [id number] 17:32:00 Test Item Value Reference Range Interpretation Comments eGFR (test code = eGFR) 87 [facility] [employer] [id number] 17:32:00 Test Item Value Reference Range Interpretation Comments AGAP (test code = AGAP) 12.5 10.0-20.0 [facility] [employer] [id number] 17:32:00 Test Item Value Reference Range Interpretation Comments Chloride Lvl (test code = Chloride Lvl) 105 95-109 [facility] [employer] [id number] 17:32:00 Test Item Value Reference Range Interpretation Comments Potassium Lvl (test code = Potassium 4.5 3.5-5.1 Lvl) [facility] [employer] [id number] 17:32:00 Test Item Value Reference Range Interpretation Comments BUN (test code = BUN) 18 - [facility] [employer] [id number] 17:32:00 Test Item Value Reference Range Interpretation Comments Creatinine Lvl (test code = Creatinine 0.91 0.50-1.40 Lvl) [facility] [employer] [id number] 17:32:00 Test Item Value Reference Range Interpretation Comments Sodium Lvl (test code = Sodium Lvl) 141 135-145 [facility] [employer] [id number] 17:32:00 Test Item Value Reference Range Interpretation Comments Glucose Lvl (test code = Glucose Lvl) 82 70-99 [facility] [employer] [id number] 17:32:00 Test Item Value Reference Range Interpretation Comments ABO/Rh (test code = ABO/Rh) A POS [facility] [employer] [id number] 17:32:00 Test Item Value Reference Range Interpretation Comments Antibody Scrn (test Negative (01/17/18 code = Antibody Scrn) 12:32 PM) [facility] [employer] [id number] 17:32:00 Test Item Value Reference Range Interpretation Comments Calcium Lvl (test code = Calcium Lvl) 9.1 8.5-10.5 [facility] [employer] [id number] 17:32:00 Test Item Value Reference Range Interpretation Comments CO2 (test code = CO2) [facility] [id number] 17:32:00 Test Item Value Reference Range Interpretation Comments eGFR (test code = eGFR) 87 [facility] [employer] [id number] 17:32:00 Test Item Value Reference Range Interpretation Comments AGAP (test code = AGAP) 12.5 10.0-20.0 [facility] [employer] [id number] 17:32:00 Test Item Value Reference Range Interpretation Comments Chloride Lvl (test code = Chloride Lvl) 105 95-109 [facility] [id number] 17:32:00 Test Item Value Reference Range Interpretation Comments Potassium Lvl (test code = Potassium 4.5 3.5-5.1 Lvl) [facility] [id number] 17:32:00 Test Item Value Reference Range Interpretation Comments BUN (test code = BUN) 18 7-22 [facility] [employer] [id number] 17:32:00 Test Item Value Reference Range Interpretation Comments Creatinine Lvl (test code = Creatinine 0.91 0.50-1.40 Lvl) [facility] [id number] 17:32:00 Test Item Value Reference Range Interpretation Comments Sodium Lvl (test code = Sodium Lvl) 141 135-145 [facility] [employer] [id number] 17:32:00 Test Item Value Reference Range Interpretation Comments Glucose Lvl (test code = Glucose Lvl) 82 70-99 [facility] [employer] [id number] 14:20:00 Test Item Value Reference Range Interpretation Comments Antibody Scrn (test Negative (01/15/18 9:20 code = Antibody Scrn) AM) [facility] [employer] [id number] 14:20:00 Test Item Value Reference Range Interpretation Comments ABO/Rh (test code = ABO/Rh) A POS [facility] [id number] 14:20:00 Test Item Value Reference Range Interpretation Comments AGAP (test code = AGAP) 13.0 10.0-20.0 [facility] [id number] 14:20:00 Test Item Value Reference Range Interpretation Comments eGFR (test code = eGFR) 89 [facility]icsXjlxwdkMSGVYRJEECBA1028-99-79 14:20:00 Test Item Value Reference Range Interpretation Comments Calcium Lvl (test code = Calcium Lvl) 9.4 8.5-10.5 [facility] SwpkyenTRRVDQZTWJGE7265-72-05 14:20:00 Test Item Value Reference Range Interpretation Comments Glucose Lvl (test code = Glucose Lvl) 102 70-99 [facility]dbqMILPYRIDLEZU9723-97-50 14:20:00 Test Item Value Reference Range Interpretation Comments BUN (test code = BUN) 16 7-22 [facility] RegionPxdfkvxHVJPFYGODCXR0201-66-34 14:20:00 Test Item Value Reference Range Interpretation Comments Chloride Lvl (test code = Chloride Lvl) 103 95-109 [facility] RegionRwkenffEEULUAKYZQNR6710-40-55 14:20:00 Test Item Value Reference Range Interpretation Comments Creatinine Lvl (test code = Creatinine 0.87 0.50-1.40 Lvl) [facility] RegionCoptyauLBKAFMIUAHOG2297-39-93 14:20:00 Test Item Value Reference Range Interpretation Comments Sodium Lvl (test code = Sodium Lvl) 141 135-145 [facility] RegionUnrwrdtGMZBUQRNVRKP6466-53-25 14:20:00 Test Item Value Reference Range Interpretation Comments Potassium Lvl (test code = Potassium 4.0 3.5-5.1 Lvl) [facility] RegionKchrndiBQBGTVPCKBHJ0525-90-54 14:20:00 Test Item Value Reference Range Interpretation Comments CO2 (test code = CO2) 29 24-32 [facility] ArlingtonPgcekbxYIQGXASYYZ6410-78-90 14:20:00 Test Item Value Reference Range Interpretation Comments Lymphocytes # (test code = Lymphocytes 1.3 1.0-5.5 #) [facility] ArlingtonEbhfgeuYHDOABQUYY3244-86-10 14:20:00 Test Item Value Reference Range Interpretation Comments Segs-Bands # (test code = Segs-Bands #) 5.8 1.5-8.1 [facility] ArlingtonDywivegVMQAHDKAQQ4862-19-51 14:20:00 Test Item Value Reference Range Interpretation Comments Monocytes # (test code 0.8 See_Comment [Aut omated message] The = Monocytes #) system which generated this result tra nsmitted reference range : <=0.8. The reference r linsey was not used to int erpret this result as normal/abnormal . [facility] ArlingtonQmlszsoCLLLTHEMEG5857-73-55 14:20:00 Test Item Value Reference Range Interpretation Comments Eosinophils # (test code 0.3 See_Comment [A utomated message] The = Eosinophils #) system whic h generated this result tra nsmitted reference range : <=0.5. The reference r linsey was not used to int erpret this result as normal/abnormal . [facility] ArlingtonNnchrkzDTNGYFYFWL4592-04-37 14:20:00 Test Item Value Reference Range Interpretation Comments Lymphocytes (test code = Lymphocytes) 15.7 20.0-40.0 [facility] ArlingtonXgdbvruTNTIVMPJVT0805-94-79 14:20:00 Test Item Value Reference Range Interpretation Comments Segs (test code = Segs) 70.9 45.0-75.0 [facility] ArlingtonKzvrrzgIVBEJFWDVQ9407-29-49 14:20:00 Test Item Value Reference Range Interpretation Comments Basophils (test code = 0.6 See_Comment [Aut omated message] The Basophils) system which ge nerated this result tra nsmitted reference range : <=1.0. The reference r linsey was not used to int erpret this result as normal/abnormal . [facility] ArlingtonYuzplefBYRLTEHJNP1142-92-42 14:20:00 Test Item Value Reference Range Interpretation Comments Eosinophils (test code = 3.3 See_Comment [A utomated message] The Eosinophils) system which ge nerated this result tra nsmitted reference range : <=4.0. The reference r linsey was not used to int erpret this result as normal/abnormal . [facility] ArlingtonRffrsqhSQVPKZTVYD6932-72-46 14:20:00 Test Item Value Reference Range Interpretation Comments Monocytes (test code = Monocytes) 9.5 2.0-12.0 [facility] ArlingtonZhkmxsgHDOPGVNEPD5613-14-37 14:20:00 Test Item Value Reference Range Interpretation Comments RDW (test code = RDW) 14.7 11.5-14.5 [facility] ArlingtonZjpaaemSKAVJDOQEJ7437-22-78 14:20:00 Test Item Value Reference Range Interpretation Comments MCHC (test code = MCHC) 33.6 32.0-36.0 [facility] ArlingtonVathkjzSETEGTDFFH8382-20-45 14:20:00 Test Item Value Reference Range Interpretation Comments Platelet (test code = Platelet) 237 133-450 [facility] ArlingtonJgmcsvdVCDXGREMUA3372-45-10 14:20:00 Test Item Value Reference Range Interpretation Comments MPV (test code = MPV) 8.8 7.4-10.4 [facility] ArlingtonAotzqifQWYARWGVEB5510-10-57 14:20:00 Test Item Value Reference Range Interpretation Comments Hgb (test code = Hgb) 13.9 14.0-18.0 [facility] ArlingtonRxagrluTBZUFPWEQM0606-19-97 14:20:00 Test Item Value Reference Range Interpretation Comments RBC (test code = RBC) 4.63 4.70-6.10 [facility] ArlingtonEgnekuuKYASUPNBPK7392-96-24 14:20:00 Test Item Value Reference Range Interpretation Comments WBC (test code = WBC) 8.2 3.7-10.4 [facility] ArlingtonZrapylpZIHWZNKBNP4032-72-42 14:20:00 Test Item Value Reference Range Interpretation Comments MCH (test code = MCH) 30.0 pg 27.0-31.0 [facility] ArlingtonQqooohwOKVGLUHCYX2878-96-34 14:20:00 Test Item Value Reference Range Interpretation Comments Hct (test code = Hct) 41.4 42.0-54.0 [facility] ArlingtonPhaeoxrPMILYTCOQW3296-17-03 14:20:00 Test Item Value Reference Range Interpretation Comments MCV (test code = MCV) 89.3 80.0-94.0 [facility] ArlingtonFatyiamRGFYXEYHAG6987-27-06 14:20:00 Test Item Value Reference Range Interpretation Comments INR (test code = INR) 1.02 1 0.85-1.17 [facility] ArlingtonTveyulmKWDUUJWPOU7673-53-85 14:20:00 Test Item Value Reference Range Interpretation Comments PTT (test code = PTT) 30.7 s 22.9-35.8 [facility] ArlingtonVsmbzleIOOJSDSPWI4082-43-28 14:20:00 Test Item Value Reference Range Interpretation Comments PT (test code = PT) 13.4 s 12.0-14.7 [facility] LHGOQWX9300-15-17 14:20:00 Test Item Value Reference Range Interpretation Comments Antibody Scrn (test Negative (01/15/18 9:20 code = Antibody Scrn) AM) [facility] CDNBOXW0762-61-30 14:20:00 Test Item Value Reference Range Interpretation Comments ABO/Rh (test code = ABO/Rh) [facility]NmjhrfhRRFXHOTBKKXH9199-39-13 14:20:00 Test Item Value Reference Range Interpretation Comments AGAP (test code = AGAP) 13.0 10.0-20.0 [facility] RegionUmnrxucVWEXCPSQLKWE7914-44-58 14:20:00 Test Item Value Reference Range Interpretation Comments eGFR (test code = eGFR) 89 [facility] RegionNmnlthdHLUWZUVJOOKN2244-20-01 14:20:00 Test Item Value Reference Range Interpretation Comments Calcium Lvl (test code = Calcium Lvl) 9.4 8.5-10.5 [facility] RegionQqtnzvpSSJBFCDCDWAF1320-14-12 14:20:00 Test Item Value Reference Range Interpretation Comments Glucose Lvl (test code = Glucose Lvl) 102 70-99 [facility] RegionKzztffwHBQHHDHHIIII6095-04-92 14:20:00 Test Item Value Reference Range Interpretation Comments BUN (test code = BUN) 16 7-22 [facility] RegionRfpqbpgGFTWQTDGHORM2728-81-93 14:20:00 Test Item Value Reference Range Interpretation Comments Chloride Lvl (test code = Chloride Lvl) 103 95-109 [facility] RegionDyvuqclYQTFVUQZRWTH0386-35-33 14:20:00 Test Item Value Reference Range Interpretation Comments Creatinine Lvl (test code = Creatinine 0.87 0.50-1.40 Lvl) [facility] RegionYjfsrwwZZFZPWJRKZMZ0085-57-57 14:20:00 Test Item Value Reference Range Interpretation Comments Sodium Lvl (test code = Sodium Lvl) 141 135-145 [facility] RegionLwvbjazUJIBINHGFKZJ4635-06-34 14:20:00 Test Item Value Reference Range Interpretation Comments Potassium Lvl (test code = Potassium 4.0 3.5-5.1 Lvl) [facility] RegionHnnyajxSEJMWTCFBPDY7419-57-37 14:20:00 Test Item Value Reference Range Interpretation Comments CO2 (test code = CO2) 29 24-32 [facility] ArlingtonZpirkerJTPBHOUILR0833-18-07 14:20:00 Test Item Value Reference Range Interpretation Comments Lymphocytes # (test code = Lymphocytes 1.3 1.0-5.5 #) [facility] ArlingtonDubeuvbGUKEALYKIO5336-93-78 14:20:00 Test Item Value Reference Range Interpretation Comments Segs-Bands # (test code = Segs-Bands #) 5.8 1.5-8.1 [facility] ArlingtonCrhxpijXSGAHWCTIN3951-17-50 14:20:00 Test Item Value Reference Range Interpretation Comments Monocytes # (test code 0.8 See_Comment [Aut omated message] The = Monocytes #) system which generated this result tra nsmitted reference range : <=0.8. The reference r linsey was not used to int erpret this result as normal/abnormal . [facility] ArlingtonMttbldlGJHGPREDXC2825-41-75 14:20:00 Test Item Value Reference Range Interpretation Comments Eosinophils # (test code 0.3 See_Comment [A utomated message] The = Eosinophils #) system whic h generated this result tra nsmitted reference range : <=0.5. The reference r linsey was not used to int erpret this result as normal/abnormal . [facility] ArlingtonQgdykhnVKFEZFQIRU7995-67-95 14:20:00 Test Item Value Reference Range Interpretation Comments Lymphocytes (test code = Lymphocytes) 15.7 20.0-40.0 [facility] ArlingtonNohecehVCGZSUBXVM0515-41-15 14:20:00 Test Item Value Reference Range Interpretation Comments Segs (test code = Segs) 70.9 45.0-75.0 [facility] ArlingtonMfcdgebSFWBEBTXRU8970-49-14 14:20:00 Test Item Value Reference Range Interpretation Comments Basophils (test code = 0.6 See_Comment [Aut omated message] The Basophils) system which ge nerated this result tra nsmitted reference range : <=1.0. The reference r linsey was not used to int erpret this result as normal/abnormal . [facility] ArlingtonEtzgxujODFHMYRLWH9872-70-67 14:20:00 Test Item Value Reference Range Interpretation Comments Eosinophils (test code = 3.3 See_Comment [A utomated message] The Eosinophils) system which ge nerated this result tra nsmitted reference range : <=4.0. The reference r linsey was not used to int erpret this result as normal/abnormal . [facility] ArlingtonXiljfrbYXSIRBPRSY3165-86-49 14:20:00 Test Item Value Reference Range Interpretation Comments Monocytes (test code = Monocytes) 9.5 2.0-12.0 [facility] ArlingtonAcajnbfLPXHXETPPI3899-03-82 14:20:00 Test Item Value Reference Range Interpretation Comments RDW (test code = RDW) 14.7 11.5-14.5 [facility] ArlingtonLnizdakRXZBPBFGVG8847-55-64 14:20:00 Test Item Value Reference Range Interpretation Comments MCHC (test code = MCHC) 33.6 32.0-36.0 [facility] ArlingtonEriyclhMSHEXAOPIW6483-76-06 14:20:00 Test Item Value Reference Range Interpretation Comments Platelet (test code = Platelet) 237 133-450 [facility] ArlingtonOdiyvccYMKKUASVUD7652-69-73 14:20:00 Test Item Value Reference Range Interpretation Comments MPV (test code = MPV) 8.8 7.4-10.4 [facility] ArlingtonLhkhanqUJEMYCCZYA9634-61-86 14:20:00 Test Item Value Reference Range Interpretation Comments Hgb (test code = Hgb) 13.9 14.0-18.0 [facility] ArlingtonFdgbzbxCMZSDBXKRW3223-53-05 14:20:00 Test Item Value Reference Range Interpretation Comments RBC (test code = RBC) 4.63 4.70-6.10 [facility] ArlingtonJiarsljAXAQQAGIVM8276-84-87 14:20:00 Test Item Value Reference Range Interpretation Comments WBC (test code = WBC) 8.2 3.7-10.4 [facility] ArlingtonWsdnciwKDQWWWUWKY8239-99-52 14:20:00 Test Item Value Reference Range Interpretation Comments MCH (test code = MCH) 30.0 pg 27.0-31.0 [facility] ArlingtonWnzihfbMCAGIZFBCV4821-61-81 14:20:00 Test Item Value Reference Range Interpretation Comments Hct (test code = Hct) 41.4 42.0-54.0 [facility] ArlingtonEdjzrwmWLALIRIXGD3701-73-76 14:20:00 Test Item Value Reference Range Interpretation Comments MCV (test code = MCV) 89.3 80.0-94.0 [facility] ArlingtonIafinsdLTHNWEYCSR6076-96-17 14:20:00 Test Item Value Reference Range Interpretation Comments INR (test code = INR) 1.02 1 0.85-1.17 [facility] ArlingtonEvupbvjIGAXMCLKFM6481-24-48 14:20:00 Test Item Value Reference Range Interpretation Comments PTT (test code = PTT) 30.7 s 22.9-35.8 [facility] ArlingtonBbbrjhfFNPGPMZWHA4397-45-05 14:20:00 Test Item Value Reference Range Interpretation Comments PT (test code = PT) 13.4 s 12.0-14.7 [facility] RegionZiltxyrTBKNZIYWPXOB9861-00-74 19:20:00 Test Item Value Reference Range Interpretation Comments AGAP (test code = AGAP) 10.8 10.0-20.0 [facility] RegionNmxvzfnQIKVFHTSEPWN5127-02-06 19:20:00 Test Item Value Reference Range Interpretation Comments eGFR (test code = eGFR) 93 [facility] RegionLnhrwprWOPIALCASRFJ6688-18-16 19:20:00 Test Item Value Reference Range Interpretation Comments Potassium Lvl (test code = Potassium 4.8 3.5-5.1 Lvl) [facility] RegionPpqhqwuRUDSSAVSJJPK6867-03-40 19:20:00 Test Item Value Reference Range Interpretation Comments Sodium Lvl (test code = Sodium Lvl) 142 135-145 [facility] RegionLwgwvonTOPUBUTEYUHO2187-03-69 19:20:00 Test Item Value Reference Range Interpretation Comments CO2 (test code = CO2) 31 24-32 [facility] RegionLtjghizWWKKCYAGSKAA7858-14-20 19:20:00 Test Item Value Reference Range Interpretation Comments Chloride Lvl (test code = Chloride Lvl) 105 95-109 [facility] RegionFscrcdbIHCWIBTSAAJU9435-53-20 19:20:00 Test Item Value Reference Range Interpretation Comments Calcium Lvl (test code = Calcium Lvl) 8.7 8.5-10.5 [facility] RegionYgarszaCOLDWBXZKBJD6618-43-68 19:20:00 Test Item Value Reference Range Interpretation Comments BUN (test code = BUN) 22 7-22 [facility] RegionGehkbvaWJFFFTUQFQUC1393-29-39 19:20:00 Test Item Value Reference Range Interpretation Comments Creatinine Lvl (test code = Creatinine 0.79 0.50-1.40 Lvl) [facility] RegionLgfkvgfSJRRYIDUYNEB2019-86-96 19:20:00 Test Item Value Reference Range Interpretation Comments Glucose Lvl (test code = Glucose Lvl) 73 70-99 [facility] ArlingtonOctstplKHVPECWHMT8297-89-19 19:20:00 Test Item Value Reference Range Interpretation Comments RDW (test code = RDW) 14.6 11.5-14.5 [facility] ArlingtonQlsrjxrDRZPTOMDDG1102-63-89 19:20:00 Test Item Value Reference Range Interpretation Comments MPV (test code = MPV) 9.1 7.4-10.4 [facility] ArlingtonMqyommeZMRCHZJZHN2678-42-41 19:20:00 Test Item Value Reference Range Interpretation Comments Platelet (test code = Platelet) 213 133-450 [facility] ArlingtonIhigdipGJDJZHBMGX3587-33-81 19:20:00 Test Item Value Reference Range Interpretation Comments MCHC (test code = MCHC) 33.4 32.0-36.0 [facility] ArlingtonSkjasspPKSNOCLKXO0259-22-27 19:20:00 Test Item Value Reference Range Interpretation Comments WBC (test code = WBC) 6.8 3.7-10.4 [facility] ArlingtonTgujacgIFLOGAXKKI5247-73-02 19:20:00 Test Item Value Reference Range Interpretation Comments Hgb (test code = Hgb) 14.6 14.0-18.0 [facility] ArlingtonBsgggvdSNYDNMZRIV1243-79-29 19:20:00 Test Item Value Reference Range Interpretation Comments Hct (test code = Hct) 43.7 42.0-54.0 [facility] ArlingtonSdpyvnnNLBMGSSVSY3970-78-32 19:20:00 Test Item Value Reference Range Interpretation Comments RBC (test code = RBC) 4.83 4.70-6.10 [facility] ArlingtonMfidhtaYRQZHNSTNP0247-87-93 19:20:00 Test Item Value Reference Range Interpretation Comments MCH (test code = MCH) 30.2 pg 27.0-31.0 [facility] ArlingtonBmxxuqcIUEPVMFCVI7283-68-42 19:20:00 Test Item Value Reference Range Interpretation Comments MCV (test code = MCV) 90.4 80.0-94.0 [facility] ArlingtonCjqihanZVOVPWOABP3742-13-82 19:20:00 Test Item Value Reference Range Interpretation Comments Lymphocytes # (test code = Lymphocytes 1.3 1.0-5.5 #) [facility] ArlingtonRdreoefSSFAUUHWOV1789-80-61 19:20:00 Test Item Value Reference Range Interpretation Comments Monocytes # (test code 0.5 See_Comment [Aut omated message] The = Monocytes #) system which generated this result tra nsmitted reference range : <=0.8. The reference r linsey was not used to int erpret this result as normal/abnormal . [facility] ArlingtonRfnpduxTBENRSPUSZ9909-20-86 19:20:00 Test Item Value Reference Range Interpretation Comments Basophils # (test code 0.1 See_Comment [Aut omated message] The = Basophils #) system which generated this result tra nsmitted reference range : <=0.2. The reference r linsey was not used to int erpret this result as normal/abnormal . [facility] ArlingtonSlgoohwMTZINMWHMI3806-05-18 19:20:00 Test Item Value Reference Range Interpretation Comments Eosinophils # (test code 0.3 See_Comment [A utomated message] The = Eosinophils #) system whic h generated this result tra nsmitted reference range : <=0.5. The reference r linsey was not used to int erpret this result as normal/abnormal . [facility] ArlingtonAqwvxzfPXGGOFCZKR0742-77-36 19:20:00 Test Item Value Reference Range Interpretation Comments Segs-Bands # (test code = Segs-Bands #) 4.7 1.5-8.1 [facility] ArlingtonDgzatjqWZWHRCRPSV9511-07-87 19:20:00 Test Item Value Reference Range Interpretation Comments Basophils (test code = 0.7 See_Comment [Aut omated message] The Basophils) system which ge nerated this result tra nsmitted reference range : <=1.0. The reference r linsey was not used to int erpret this result as normal/abnormal . [facility] ArlingtonQwpmqkhDLYLGJABOS1799-76-57 19:20:00 Test Item Value Reference Range Interpretation Comments Eosinophils (test code = 4.2 See_Comment [A utomated message] The Eosinophils) system which ge nerated this result tra nsmitted reference range : <=4.0. The reference r linsey was not used to int erpret this result as normal/abnormal . [facility] ArlingtonAofcvpyPQQVIYTZEC5085-90-94 19:20:00 Test Item Value Reference Range Interpretation Comments Monocytes (test code = Monocytes) 7.2 2.0-12.0 [facility] ArlingtonQfkoweuLMYEVGGAAB5906-71-22 19:20:00 Test Item Value Reference Range Interpretation Comments Lymphocytes (test code = Lymphocytes) 19.5 20.0-40.0 [facility] ArlingtonHxclzqnIRAMKMATXH1995-88-07 19:20:00 Test Item Value Reference Range Interpretation Comments Segs (test code = Segs) 68.4 45.0-75.0 [facility] RegionKgdfzltCYMKVCDEEJPX5357-62-74 19:20:00 Test Item Value Reference Range Interpretation Comments AGAP (test code = AGAP) 10.8 10.0-20.0 [facility] RegionXxnpeuxKEGTFPPLIQRM7536-49-51 19:20:00 Test Item Value Reference Range Interpretation Comments eGFR (test code = eGFR) 93 [facility] RegionEybxibhKEFFAYVPUDRR5008-06-00 19:20:00 Test Item Value Reference Range Interpretation Comments Potassium Lvl (test code = Potassium 4.8 3.5-5.1 Lvl) [facility] RegionUuxzuvgWUGKDQWFRBDX4648-01-17 19:20:00 Test Item Value Reference Range Interpretation Comments Sodium Lvl (test code = Sodium Lvl) 142 135-145 [facility] RegionMnaixciPRIIARTXGLRD2712-15-14 19:20:00 Test Item Value Reference Range Interpretation Comments CO2 (test code = CO2) 31 24-32 [facility] RegionJfznvhnDATUGLNNJEVC2933-93-12 19:20:00 Test Item Value Reference Range Interpretation Comments Chloride Lvl (test code = Chloride Lvl) 105 95-109 [facility] RegionIbrkyeiRVKKAPQOMHZY6678-57-74 19:20:00 Test Item Value Reference Range Interpretation Comments Calcium Lvl (test code = Calcium Lvl) 8.7 8.5-10.5 [facility] RegionUwlvpwuTPZHXIRKNOPR3995-57-11 19:20:00 Test Item Value Reference Range Interpretation Comments BUN (test code = BUN) 22 7-22 [facility] RegionRhphaogSCJMEUCMXCQF9472-21-31 19:20:00 Test Item Value Reference Range Interpretation Comments Creatinine Lvl (test code = Creatinine 0.79 0.50-1.40 Lvl) [facility] RegionAewcvoxKVZXHAQNJCDJ5068-91-05 19:20:00 Test Item Value Reference Range Interpretation Comments Glucose Lvl (test code = Glucose Lvl) 73 70-99 [facility] ArlingtonOlrvosbTSWOTLQEUY7360-75-32 19:20:00 Test Item Value Reference Range Interpretation Comments RDW (test code = RDW) 14.6 11.5-14.5 [facility] ArlingtonXlwohrgEXIWTEMHXW8237-30-49 19:20:00 Test Item Value Reference Range Interpretation Comments MPV (test code = MPV) 9.1 7.4-10.4 [facility] ArlingtonGgbdzjhRYZLEGREYW2171-49-50 19:20:00 Test Item Value Reference Range Interpretation Comments Platelet (test code = Platelet) 213 133-450 [facility] ArlingtonKrokinaBZGPUYRIYU8208-59-87 19:20:00 Test Item Value Reference Range Interpretation Comments MCHC (test code = MCHC) 33.4 32.0-36.0 [facility] ArlingtonMsolpkeTQPXEMBLXY5172-98-13 19:20:00 Test Item Value Reference Range Interpretation Comments WBC (test code = WBC) 6.8 3.7-10.4 [facility] ArlingtonTkxzglrJAMGUMHIIJ1394-83-10 19:20:00 Test Item Value Reference Range Interpretation Comments Hgb (test code = Hgb) 14.6 14.0-18.0 [facility] ArlingtonZdbczngVZHRJUFSYU4559-33-85 19:20:00 Test Item Value Reference Range Interpretation Comments Hct (test code = Hct) 43.7 42.0-54.0 [facility] ArlingtonYgfvzmpYZTVTRJFUH2002-88-35 19:20:00 Test Item Value Reference Range Interpretation Comments RBC (test code = RBC) 4.83 4.70-6.10 [facility] ArlingtonMljciczNXHWMIFUSK7982-46-65 19:20:00 Test Item Value Reference Range Interpretation Comments MCH (test code = MCH) 30.2 pg 27.0-31.0 [facility] ArlingtonJnekgbdWIVFDZDQNK7520-21-60 19:20:00 Test Item Value Reference Range Interpretation Comments MCV (test code = MCV) 90.4 80.0-94.0 [facility] ArlingtonQumzdqwHOOUYCLBFW4252-69-49 19:20:00 Test Item Value Reference Range Interpretation Comments Lymphocytes # (test code = Lymphocytes 1.3 1.0-5.5 #) [facility] ArlingtonFujebeyVDJOQJIAOM7316-85-50 19:20:00 Test Item Value Reference Range Interpretation Comments Monocytes # (test code 0.5 See_Comment [Aut omated message] The = Monocytes #) system which generated this result tra nsmitted reference range : <=0.8. The reference r linsey was not used to int erpret this result as normal/abnormal . [facility] ArlingtonQsidkczXMTOMFIAZQ7333-54-07 19:20:00 Test Item Value Reference Range Interpretation Comments Basophils # (test code 0.1 See_Comment [Aut omated message] The = Basophils #) system which generated this result tra nsmitted reference range : <=0.2. The reference r linsey was not used to int erpret this result as normal/abnormal . [facility] ArlingtonLorlzokNECUYJTOLA1237-13-03 19:20:00 Test Item Value Reference Range Interpretation Comments Eosinophils # (test code 0.3 See_Comment [A utomated message] The = Eosinophils #) system whic h generated this result tra nsmitted reference range : <=0.5. The reference r linsey was not used to int erpret this result as normal/abnormal . [facility] ArlingtonOlpyisaJLEWFZOFJF7260-36-12 19:20:00 Test Item Value Reference Range Interpretation Comments Segs-Bands # (test code = Segs-Bands #) 4.7 1.5-8.1 [facility] ArlingtonNvowvacXEVMHEBFMU6843-23-47 19:20:00 Test Item Value Reference Range Interpretation Comments Basophils (test code = 0.7 See_Comment [Aut omated message] The Basophils) system which ge nerated this result tra nsmitted reference range : <=1.0. The reference r linsey was not used to int erpret this result as normal/abnormal . [facility] ArlingtonAyrffmsQCTBELBCBF3565-79-19 19:20:00 Test Item Value Reference Range Interpretation Comments Eosinophils (test code = 4.2 See_Comment [A utomated message] The Eosinophils) system which ge nerated this result tra nsmitted reference range : <=4.0. The reference r linsey was not used to int erpret this result as normal/abnormal . [facility] ArlingtonWhmulqhPTTPHPZLVJ1173-87-30 19:20:00 Test Item Value Reference Range Interpretation Comments Monocytes (test code = Monocytes) 7.2 2.0-12.0 [facility] ArlingtonFzhwoluCOWGBNFHOL4724-02-82 19:20:00 Test Item Value Reference Range Interpretation Comments Lymphocytes (test code = Lymphocytes) 19.5 20.0-40.0 [facility] ArlingtonAllrbmfSIFQVTEKYK4300-99-61 19:20:00 Test Item Value Reference Range Interpretation Comments Segs (test code = Segs) 68.4 45.0-75.0 [facility]
[2022-10-22] MEDS ORDERED: PANTOPRAZOLE 40 MG INJ ONE (13:13)
[2022-10-22] MEDS ORDERED: PANTOPRAZOLE INJ 80 MG in NA CHLORIDE 0.9% 250 ML IV ONE (13:30)
[2022-10-22 13:33] LABS: Absolute Lymphocytes (CBC) 1.2 K/uL (0.7-4.9); Hematocrit 26.9 % (39.6-49.0); Lymphocytes % 13.3 % (15.3-44.8); MCV 83.1 fL (80-100); MPV 8.2 fL (7.6-11.3); RBC Red Blood Cell Count 3.24 M/uL (4.33-5.43)
[2022-10-22 13:48] LABS: Protime INR 1.09
[2022-10-22 14:31] LABS: Albumin 2.6 g/dL (3.4-5.0); Bilirubin Total 0.2 mg/dL (0.2-1.0); Potassium 4.9 mmol/L (3.5-5.1); Protein, Total 6.8 g/dL (6.4-8.2)
--- NOTE | 2022-10-22 14:54 | EDPHYS ---
Physician Documentation [facility] Name: Boom Peguero Age: 72 yrs Sex: Male : 1950 Arrival Date: 10/22/2022 Time: 12:53 Bed 16 Private MD: ED Physician Merrill Krishnan HPI: 10/22 12:59 This 72 yrs old Male presents to ER via Unassigned with complaints of vomiting blood. rn 12:59 The patient presents to the emergency department vomiting blood, a moderate amount, rn bright red, in a single episode. Onset: The symptoms/episode began/occurred just prior to arrival. Abdominal pain: none is appreciated. Modifying factors: The symptoms are alleviated by nothing, the symptoms are aggravated by nothing. Associated signs and symptoms: Pertinent positives: vomiting, Pertinent negatives: chest pain, diarrhea, fever, syncope. Severity of symptoms: At their worst the symptoms were moderate in the emergency department the symptoms have improved. The patient has not experienced similar symptoms in the past. The patient has not recently seen a physician. Pt threw up blood clots prior to arrival, moderate amount, single episode. Takes aspirin sometimes. NO hx of GI bleed. . Historical: - Allergies: 13:07 No Known Allergies; ll1 - PMHx: 13:07 Hyperlipidemia; Hypertension; ll1 - Immunization history:: Client reports receiving the 2nd dose of the Covid vaccine. - Social history:: Smoking status: Patient denies any tobacco usage or history of. - Family history:: not pertinent. - Hospitalizations: : No recent hospitalization is reported. ROS: 12:59 Constitutional: Negative for fever, chills, and weight loss, Eyes: Negative for injury, rn pain, redness, and discharge, Neck: Negative for injury, pain, and swelling, Cardiovascular: Negative for chest pain, palpitations, and edema, Respiratory: Negative for shortness of breath, cough, wheezing, and pleuritic chest pain, Abdomen/GI: Negative for abdominal pain, diarrhea, and constipation, Back: Negative for injury and pain, MS/Extremity: Negative for injury and deformity, Skin: Negative for injury, rash, and discoloration, Neuro: Negative for headache, numbness, tingling, and seizure. Exam: 12:59 Constitutional: This is a well developed, well nourished patient who is awake, alert, rn and in no acute distress. Head/Face: Normocephalic, atraumatic. ENT: red blood dried around mouth/face Cardiovascular: Regular rate and rhythm. No pulse deficits. Respiratory: No increased work of breathing, no retractions or nasal flaring. Abdomen/GI: soft, non-tender, non-distended Skin: Warm, dry MS/ Extremity: Pulses equal, no cyanosis. Neuro: Awake and alert, GCS 15 Vital Signs: 13:04 BP 84 / 52; Pulse 93; Resp 18; Temp 98.2(O); Pulse Ox 94% on R/A; Weight 76.66 kg; ll1 Height 5 ft. 10 in. (177.80 cm); Pain 0/10; 13:25 BP 82 / 52; Pulse 95; Resp 18; Pulse Ox 100% ; ll1 13:47 BP 89 / 53; Pulse 87; Resp 18; Pulse Ox 94% on R/A; ll1 15:23 BP 107 / 71; Pulse 88; Resp 17; Pulse Ox 99% on R/A; ll1 16:20 BP 98 / 71; Pulse 89; Resp 16; Pulse Ox 97% on R/A; ll1 17:00 BP 105 / 73; Pulse 57; Resp 15; Temp 98.3; Pulse Ox 99% ; ll1 17:17 BP 107 / 70; Pulse 93; Resp 15; Pulse Ox 99% ; ll1 18:02 BP 100 / 66; Pulse 89; Resp 15; Pulse Ox 98% ; ll1 13:04 Body Mass Index 24.25 (76.66 kg, 177.80 cm) ll1 MDM: 12:57 Patient medically screened. rn 14:52 Differential diagnosis: gastritis, varices, gastric ulcer, UGIB. Data reviewed: vital rn signs, nurses notes, lab test result(s), and as a result, I will admit patient. Counseling: I had a detailed discussion with the patient and/or guardian regarding: the historical points, exam findings, and any diagnostic results supporting the discharge/admit diagnosis, lab results, the need for further work-up and treatment in the hospital, the need to transfer to another facility, for higher level of care, [facility] does not immediately have the required specialist. Response to treatment: the patient's symptoms have mildly improved after treatment, and as a result, I will admit patient. Admission orders: after a detailed discussion of the patient's condition and case, the admit orders are written by me. 17:51 ED course: Pt feels better, requesting food, but keeping NPO. 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 Ambulance on the way. . 10/22 12:59 Order name: CBC with Diff; Complete Time: 14:39 rn 10/22 12:59 Order name: CMP; Complete Time: 14:39 rn 10/22 12:59 Order name: Lipase; Complete Time: 14:39 rn 10/22 12:59 Order name: PT-INR; Complete Time: 14:39 rn 10/22 12:59 Order name: Ptt, Activated; Complete Time: 14:39 rn 10/22 13:11 Order name: Type And Screen; Complete Time: 15:14 rn 10/22 12:59 Order name: CT Abd/Pelvis - IV Contrast Only; Complete Time: 15:14 rn 10/22 12:59 Order name: IV Saline Lock; Complete Time: 13:04 rn 10/22 15:21 Order name: SARS RAPID eb 10/22 12:59 Order name: Labs collected and sent; Complete Time: 13:04 rn Administered Medications: 13:04 Drug: NS 0.9% 1000 ml Route: IV; Rate: 1 bolus; Site: right antecubital; ll1 13:48 Follow up: Response: No adverse reaction; IV Status: Completed infusion; IV Intake: ll1 1000ml 13:20 Drug: ProTONIX (pantoprazole) 40 mg Route: IVP; Site: right antecubital; ll1 13:45 Follow up: Response: No adverse reaction ll1 13:44 Drug: ProTONIX (pantoprazole) 8 mg/hr Route: IV; Rate: 25 ml/hr; Site: right ll1 antecubital; 17:20 Follow up: Response: No adverse reaction; IV Status: Infusion continued upon transfer; ll1 IV Intake: 125ml 17:04 Drug: Zofran (Ondansetron) 4 mg Route: IVP; Site: right antecubital; ll1 17:20 Follow up: Response: No adverse reaction ll1 17:04 Drug: D5-1/2 NS with KCl 20 mEq/L 1000 ml Route: IV; Rate: 150 ml/hr; Site: right ll1 antecubital; 17:20 Follow up: Response: No adverse reaction; IV Status: Infusion continued upon transfer; ll1 IV Intake: 50ml Disposition Summary: 10/22/22 14:53 Transfer Ordered Transfer Location: [facility] rn Reason: Higher level of care rn Condition: Stable rn Problem: new rn Symptoms: have improved rn Accepting Physician: (10/22/22 18:19) ll1 Diagnosis - Hematemesis rn - GI Bleed/ Gastrointestinal hemorrhage, unspecified rn - Anemia, unspecified rn Forms: - Medication Reconciliation Form rn - SBAR form rn Signatures: Dispatcher [employer] EDMerrill Hope MD MD rn Lewis, Lynsay, RN RN ll1 Corrections: (The following items were deleted from the chart) 18:19 14:53 rn ll1
--- NOTE | 2022-10-22 14:54 | ER ---
Nurse's Notes [facility] Name: Boom Peguero Age: 72 yrs Sex: Male : 1950 Arrival Date: 10/22/2022 Time: 12:53 Bed 16 Private MD: Diagnosis: Hematemesis;GI Bleed/ Gastrointestinal hemorrhage, unspecified;Anemia, unspecified Presentation: 10/22 13:04 Chief complaint: Patient states: Has been feeling bad for about 2 weeks. Started to ll1 feel even worse last night. Camilla sweaty, nausea, chills. N/V x 1 today with blood clots in it. EMS states: IV R AC, 500 ml bolus given en route. BP 86/54, then 96/48. Coronavirus screen: Vaccine status: Client denies travel out of the [place] in the last 14 days. fatigue, nausea, vomiting. Client presents with at least one sign or symptom that may indicate coronavirus-19. Standard/surgical mask placed on the client. Ebola Screen: Patient denies travel to an Ebola-affected area in the 21 days before illness onset. Initial Sepsis Screen: Does the patient meet any 2 criteria? Systolic BP < 90 mmHg. HR > 90 bpm. Does the patient have a suspected source of infection? No. Patient's initial sepsis screen is negative. Risk Assessment: Do you want to hurt yourself or someone else? Patient reports no desire to harm self or others. Onset of symptoms was October 07, 2022. 13:04 Method Of Arrival: EMS ll1 13:04 Acuity: SIRISHA 2 ll1 Triage Assessment: 17:18 General: Appears in no apparent distress. Behavior is calm, cooperative, appropriate ll1 for age. Pain: Denies pain. Historical: - Allergies: 13:07 No Known Allergies; ll1 - PMHx: 13:07 Hyperlipidemia; Hypertension; ll1 - Immunization history:: Client reports receiving the 2nd dose of the Covid vaccine. - Social history:: Smoking status: Patient denies any tobacco usage or history of. - Family history:: not pertinent. - Hospitalizations: : No recent hospitalization is reported. Screenin:25 Abuse screen: Denies threats or abuse. Nutritional screening: No deficits noted. ll1 Tuberculosis screening: No symptoms or risk factors identified. 17:19 [facility] ED Fall Risk Assessment (Adult) Impaired Gait Yes (1 pt) Mobility Assist ll1 Device Used Yes (1 pt) Score/Fall Risk Level 0 - 2 = Low Risk Oriented to surroundings, Maintained a safe environment, Educated pt \T\ family on fall prevention, incl call for assistance when getting out of bed, Hourly rounding (assess needs \T\ fall precautionary measures) done. Assessment: 13:25 Reassessment: No changes from previously documented assessment. Patient and/or family ll1 updated on plan of care and expected duration. Pain level reassessed. Patient is alert, oriented x 3, equal unlabored respirations, skin warm/dry/pink. 13:48 Reassessment: No changes from previously documented assessment. Patient and/or family ll1 updated on plan of care and expected duration. Pain level reassessed. 15:23 Reassessment: No changes from previously documented assessment. Patient and/or family ll1 updated on plan of care and expected duration. Pain level reassessed. 16:20 Reassessment: No changes from previously documented assessment. Patient and/or family ll1 updated on plan of care and expected duration. Pain level reassessed. Patient is alert, oriented x 3, equal unlabored respirations, skin warm/dry/pink. 17:18 Reassessment: No changes from previously documented assessment. Patient and/or family ll1 updated on plan of care and expected duration. Pain level reassessed. Patient is alert, oriented x 3, equal unlabored respirations, skin warm/dry/pink. 18:01 Reassessment: No changes from previously documented assessment. Patient and/or family ll1 updated on plan of care and expected duration. Pain level reassessed. Patient is alert, oriented x 3, equal unlabored respirations, skin warm/dry/pink. 18:15 Reassessment: No changes from previously documented assessment. report given to [facility] [id number] [facility]. Vital Signs: 13:04 BP 84 / 52; Pulse 93; Resp 18; Temp 98.2(O); Pulse Ox 94% on R/A; Weight 76.66 kg; ll1 Height 5 ft. 10 in. (177.80 cm); Pain 0/10; 13:25 BP 82 / 52; Pulse 95; Resp 18; Pulse Ox 100% ; ll1 13:47 BP 89 / 53; Pulse 87; Resp 18; Pulse Ox 94% on R/A; ll1 15:23 BP 107 / 71; Pulse 88; Resp 17; Pulse Ox 99% on R/A; ll1 16:20 BP 98 / 71; Pulse 89; Resp 16; Pulse Ox 97% on R/A; ll1 17:00 BP 105 / 73; Pulse 57; Resp 15; Temp 98.3; Pulse Ox 99% ; ll1 17:17 BP 107 / 70; Pulse 93; Resp 15; Pulse Ox 99% ; ll1 18:02 BP 100 / 66; Pulse 89; Resp 15; Pulse Ox 98% ; ll1 13:04 Body Mass Index 24.25 (76.66 kg, 177.80 cm) ll1 ED Course: 12:53 Patient arrived in ED. eb 12:57 eMrrill Krishnan MD is Attending Physician. rn 13:00 Maintain EMS IV. Dressing intact. Good blood return noted. Site clean \T\ dry. Gauge \T\ ll 1 site: 20 R AC. 13:03 Melinda Oropeza, ZFOIA is Primary Nurse. ll1 13:07 Triage completed. ll1 13:07 Arm band placed on Patient placed in an exam room, on a stretcher. ll1 13:25 Patient has correct armband on for positive identification. Bed in low position. Call ll1 light in reach. Side rails up X2. Client placed on continuous cardiac and pulse oximetry monitoring. NIBP monitoring applied. school lunch monitor on. 13:27 Type And Screen Sent. mm9 13:27 Ptt, Activated Sent. mm9 13:27 PT-INR Sent. mm9 13:27 CBC with Diff Sent. mm9 13:27 CMP Sent. mm9 13:28 Pulse ox on. NIBP on. mm9 13:28 Lipase Sent. mm9 13:28 Initial lab(s) drawn, by nm, sent to lab. T\T\S collected, blood band applied to patient. mm9 Maintain EMS IV. Dressing intact. Good blood return noted. Site clean \T\ dry. 14:58 CT Abd/Pelvis - IV Contrast Only In Process Unspecified. EDMS 15:21 initiated a transfer with Lamont Hernandez from the [facility]. eb 15:[address] Cuevas the hospitalist artist color separation for [facility] with Dr. Krishnan for eb patient transfer consultation. 16:15 administrative approval given by Lamont Hernandez/ patient has been accepted to [facility] RM 915/ Dr. Marcio Cuevas has accepted the patient in transfer/ report to be called to [phone]/. 17:18 No provider procedures requiring assistance completed. Patient transferred, IV remains ll1 in place. Administered Medications: 13:04 Drug: NS 0.9% 1000 ml Route: IV; Rate: 1 bolus; Site: right antecubital; ll1 13:48 Follow up: Response: No adverse reaction; IV Status: Completed infusion; IV Intake: ll1 1000ml 13:20 Drug: ProTONIX (pantoprazole) 40 mg Route: IVP; Site: right antecubital; ll1 13:45 Follow up: Response: No adverse reaction ll1 13:44 Drug: ProTONIX (pantoprazole) 8 mg/hr Route: IV; Rate: 25 ml/hr; Site: right ll1 antecubital; 17:20 Follow up: Response: No adverse reaction; IV Status: Infusion continued upon transfer; ll1 IV Intake: 125ml 17:04 Drug: Zofran (Ondansetron) 4 mg Route: IVP; Site: right antecubital; ll1 17:20 Follow up: Response: No adverse reaction ll1 17:04 Drug: D5-1/2 NS with KCl 20 mEq/L 1000 ml Route: IV; Rate: 150 ml/hr; Site: right ll1 antecubital; 17:20 Follow up: Response: No adverse reaction; IV Status: Infusion continued upon transfer; ll1 IV Intake: 50ml Medication: 13:25 VIS not applicable for this client. ll1 Intake: 13:48 IV: 1000ml; Total: 1000ml. ll1 17:20 IV: 125ml; Total: 1125ml. ll1 17:20 IV: 50ml; Total: 1175ml. ll1 Outcome: 14:53 ER care complete, transfer ordered by . rn 17:19 Transferred by ground EMS to [facility], Transfer form completed. ll1 Note: Report called to Genesis Lemon RN 17:19 Condition: stable 17:19 Instructed on the need for transfer. 18:19 Patient left the ED. ll1 Signatures: Dispatcher [employer] EDMerrill Hope MD MD rn Botello, Elizabeth eb Sandip, Lynsay, RN RN ll1 Derrick, Kathi mm9
--- NOTE | 2022-10-22 15:07 | RAD REPORT ---
EXAM DESCRIPTION: CTAbdomen Pelvis W Contrast - 10/22/2022 2:56 pm CLINICAL HISTORY: hematemesis COMPARISON: MYELOGRAPHY LUMBAR dated 03/07/2012; [id number] dated 03/07/2012 TECHNIQUE: CT of the abdomen and pelvis was performed. All CT scans are performed using dose optimization technique as appropriate and may include automated exposure control or mA/KV adjustment according to patient size. FINDINGS: Lower chest: No acute abnormality. Liver: No acute abnormality or suspicious lesions. Biliary: No biliary ductal dilatation. Stomach: No significant focal abnormality. Duodenum: No significant focal abnormality. Pancreas: No significant abnormality. Spleen: No significant abnormality. Adrenal: No suspicious lesions. Kidney/ureter: No hydronephrosis. No renal calculi. Too small to characterize and/or benign appearing renal lesions are noted. Retroperitoneum: No retroperitoneal adenopathy. Vascular: No aneurysm. Atherosclerosis Bowel: No significant focal abnormality. Peritoneum: No ascites or free air. Bladder: Grossly unremarkable. Reproductive: No adnexal masses. Bones: Surgical changes from posterior laminectomy interbody fusion. Iliac screws are present with pe riprosthetic lucency. There is also lucency around the sacral screws. Anterolisthesis of L5 on S1. . Other: n/a IMPRESSION: No acute intra-abdominal or pelvic finding. Status post lumbosacral fusion with iliac screws. Periprosthetic lucency on the iliac and S1 screws c onsistent with loosening.
[2022-10-22 16:12] LABS: SARS-CoV-2 Antigen Rapid Res Negative (Negative)
[2022-10-22] MEDS ORDERED: D5.45NS W/KCL 20MEQ 1,000 ML IV ONE (16:35)
[2022-10-22] MEDS ORDERED: ONDANSETRON 4 MG/2 ML VIAL ONE (16:35)
[2022-10-22 18:50] VITALS: TEMP 98.3
[2022-10-22 18:52] VITALS: BP 100/66; O2SAT 98
== END 2022-10-22 18:19 | disposition short-term general hospital (02) ==
LOC: ER 12:51
DX: K92.0 Hematemesis (principal); D64.9 Anemia, unspecified; I10 Essential (primary) hypertension; E78.5 Hyperlipidemia, unspecified; Z20.822 Contact with and (suspected) exposure to COVID-19
CPT/HCPCS: 96365; 96361; 85025; 36415; 86900; 86850; 85610; 86901; 85730; 83690; 80053; 74177; 96375; 99285; 96366; 87811; Q9967; C9113 ×2; J7050; J2405